=== PATIENT | female | born 1960 ===

== ENCOUNTER 2019-01-02 07:11 | Inpatient (IN) | payer MEDICAID ==
[2019-01-02 07:15] VITALS: BMI 23.7
[2019-01-02] MEDS ORDERED: Sodium Chloride 0.9% 1,000 ML IV STA (07:40)
[2019-01-02 08:07] LABS: BASO # 0.1 K/uL (0.0-0.2); BASO % 1.1 % (0.0-2.0); EOS # 0.1 K/uL (0.0-0.7); EOS % 1.3 % (0.0-4.0); HEMOGLOBIN 11.7 g/dL (11.0-16.0); LYMPH % 44.2 % (20.0-40.0); MEAN CELL VOLUME 84.1 fL (81.0-99.0); MEAN CORPUSCULAR HEMOGLOBIN 28.1 pg (27.0-31.0); MEAN CORPUSCULAR HGB CONC 33.5 g/dL (33.0-37.0); MEAN PLATELET VOLUME 8.3 fL (7.2-11.7); MONO # 0.3 K/uL (0.0-0.8); MONO % 4.1 % (0.0-10.0); NEUT # 3.4 K/uL (1.8-7.0); NEUT % 49.3 % (50.0-75.0); NRBC % 0.6 % (0.0-2.0); RBC 4.17 Mil/uL (3.80-5.20); RED CELL DISTRIBUTION WIDTH 15.9 % (11.5-14.5); WHITE BLOOD COUNT 6.9 K/uL (4.8-10.8)
[2019-01-02] MEDS ORDERED: Sodium Chloride 0.9% 1,000 ML ONE ×2 (08:08→17:00)
[2019-01-02 08:14] LABS: SQUAMOUS EPITHIAL 1 /hpf (0-5); URINE BILIRUBIN NEGATIVE (NEGATIVE); URINE BLOOD NEGATIVE (NEGATIVE); URINE CLARITY Clear (Clear); URINE COLOR Yellow (YELLOW); URINE GLUCOSE (UA) NORMAL (Normal); URINE LEUKOCYTE ESTERASE NEG Leu/uL (Negative); URINE PROTEIN NEGATIVE (NEGATIVE); URINE UROBILINOGEN NORMAL mg/dL (0.2-1.0)
[2019-01-02 08:20] LABS: ALB/GLOB RATIO 1.6 (1.0-2.1); ALBUMIN 4.4 g/dL (3.5-5.0); ALT/SGPT 73 U/L (9-52); AST/SGOT 62 U/L (14-36); BLOOD UREA NITROGEN 10 mg/dL (7-17); CALCIUM 9.6 mg/dl (8.6-10.4); GFR NON-AFRICAN AMERICAN > 60; LIPASE 133 U/L (23-300)
--- NOTE | 2019-01-02 08:20 | C.PDOC ---
History Of Present Illness 58 y/o female presents to the ED complaining of 1 week of RUQ pain radiating to her back. Associated with mild nausea, but no vomiting. She denies any fever, chills, dysuria, frequency, or diarrhea. Time Seen by Provider: 01/02/19 07:20 Chief Complaint (Nursing): Abdominal Pain History Per: Patient History/Exam Limitations: no limitations Onset/Duration Of Symptoms: Days (x 7) Current Symptoms Are (Timing): Still Present Location Of Pain/Discomfort: RUQ Radiation Of Pain To:: Back Quality Of Discomfort: "Pain" Associated Symptoms: Nausea Past Medical History Reviewed: Historical Data, Nursing Documentation, Vital Signs Vital Signs: Last Vital Signs Temp 98.6 F 01/02/19 07:17 Pulse 87 01/02/19 07:17 Resp 16 01/02/19 07:17 BP 115/74 01/02/19 07:17 Pulse Ox 98 01/02/19 07:17 - Medical History PMH: HTN Surgical History: Cholecystectomy - [facility] Procedures RADICAL EXCIS SKIN LES (05/11/14) Family History: States: Unknown Family Hx - Social History Hx Alcohol Use: No Hx Substance Use: No - Immunization History Hx Tetanus Toxoid Vaccination: No Hx Influenza Vaccination: Yes Hx Pneumococcal Vaccination: No Review Of Systems Except As Marked, All Systems Reviewed And Found Negative. Constitutional: Negative for: Fever, Chills Cardiovascular: Negative for: Chest Pain Respiratory: Negative for: Shortness of Breath Gastrointestinal: Positive for: Nausea, Abdominal Pain (RUQ). Negative for: Vomiting, Diarrhea, Hematochezia Genitourinary: Negative for: Dysuria, Frequency, Incontinence Musculoskeletal: Positive for: Back Pain Neurological: Negative for: Weakness, Dizziness Physical Exam - Physical Exam Appears: Non-toxic, No Acute Distress Skin: Normal Color, Warm, Dry Head: Atraumatic, Normacephalic Eye(s): bilateral: Normal Inspection, PERRL, EOMI Oral Mucosa: Moist Neck: Normal ROM Chest: Symmetrical Cardiovascular: Rhythm Regular, No Murmur Respiratory: Normal Breath Sounds, No Accessory Muscle Use Gastrointestinal/Abdominal: Soft, Tenderness (Mild tenderness to RUQ), No Guarding, No Rebound Back: No CVA Tenderness Extremity: Bilateral: Atraumatic, Normal Color And Temperature, Normal ROM Neurological/Psych: Oriented x3, Normal Speech ED Course And Treatment - Laboratory Results Result Diagrams: 01/02/19 08:02 01/02/19 08:02 O2 Sat by Pulse Oximetry: 98 (RA) Pulse Ox Interpretation: Normal - CT Scan/US Abdominal US Other Rad Studies (CT/US): Read By Radiologist, Radiology Report Reviewed CT/US Interpretation: Accession No. : [id number]. Patient Name / ID : WALDEMAR LUCIO / [id number]. Exam Date : 01/02/2019 08:49:18 ( Approved ). Study Comment : Sex / Age : F / 58Y. Creator : Eli Hunter MD. Dictator : Eli Hunter MD. Tipple Mechanic : Dimension Specification Inspector : Eli Hunter MD. Approver2 : Report Date : 01/02/2019 10:20:00. My Comment : . Date of service: 01/02/2019. HISTORY: Pain epigastric and RUQ. COMPARISON: None available. TECHNIQUE: Sonographic evaluation of the right upper quadrant of the abdomen. FINDINGS: LIVER: Measures 15.5 cm in length. Echogenic liver may be seen in setting of hepatic parenchymal disease or fatty infiltration. No focal hepatic mass identified. The main portal vein appears patent with normal directional flow. No intrahepatic bile duct dilatation. GALLBLADDER: Cholecystectomy. COMMON BILE DUCT: Measures 6 mm. PANCREAS: Not well- visualized. RIGHT KIDNEY: Measures approximately 10.9 x 3.9 x 4.3 cm. No o bstructing calculus or hydronephrosis identified. AORTA: Limited visualization appears grossly unremarkable. IVC: Limited visualization appears grossly unremarkable. OTHER FINDINGS: None . IMPRESSION: Echogenic liver may be seen in setting of hepatic parenchymal disease or fatty infiltration. Cholecystectomy. CT Abdomen/Pelvis Other Rad Studies (CT/US): Read By Radiologist, Radiology Report Reviewed CT/US Interpretation: Accession No. : [id number]. Patient Name / ID : WALDEMAR Rausch / [id number]. Exam Date : 01/02/2019 12:47:59 ( Approved ). Study Comment : Sex / Age : F / 58Y. Creator : Alyssa Romeo. Dictator : Eli Hunter MD. Tipple Mechanic : Dimension Specification Inspector : Eli Hunter MD. Approver2 : Report Date : 01/02/2019 13:23:42. My Comment : . PROCEDURE: CT Abdomen and Pelvis with oral and IV contrast. HISTORY: periumbilical and right abdominal pain. COMPARISON: None available. TECHNIQUE: Contiguous axial images of the abdomen and pelvis. Oral and IV contrast was administered. Coronal and Sagittal reformats generated and reviewed. Contrast dose: 100 mL Visipaque 320 IV. Radiation dose: Total e xam DLP = 932.73 mGy-cm. This CT exam was performed using one or more of the following dose reduction techniques: Automated exposure control, adjustment of the mA and/or kV according to patient size, and/or use of iterative reconstruction technique. FINDINGS: LOWER THORAX: No visible consolidation, pleural effusion, or pneumothorax. LIVER: Unremarkable. GALLBLADDER AND BILE DUCTS: Not visualized, either resected or contrast. Dilated common bile duct measures approximately 10 mm. PANCREAS: Unremarkable. SPLEEN: Unremarkable. ADRENALS: Unremarkable. KIDNEYS AND URETERS: The kidneys enhance symmetrically. 4 mm distal left ureteral calculus (series 3, image 145) without significant proximal hydronephrosis or hydroureter. BLADDER: Thick-walled under distended urinary bladder. REPRODUCTIVE: Uterus is present. APPENDIX: The appendix appears within normal limits of caliber. No secondary signs of acute appendicitis. BOWEL: The stomach is nondistended. The bowel loops ap pear within normal limits of caliber without evidence of intestinal obstruction. Diverticulosis without CT evidence of acute diverticulitis. Moderate diffuse constipation. PERITONEUM: No significant free fluid. No definite free air. LYMPH NODES: No bulky lymphadenopathy identified. VASCULATURE: No aortic aneurysm. No significant atherosclerotic calcification or mural plaque present. BONES: No acute osseous abnormality is detected. OTHER FINDINGS: Fat containing containing umbilical hernia. IMPRESSION: Diverticulosis without CT evidence of acute diverticulitis. Moderate diffuse constipation. The gallbladder is not visualized, either resected or contrast. Dilated common bile duct measures approximately 10 mm. Thick-walled under distended urinary bladder recommend correlation with urinalysis. 4 mm distal left ureteral calculus without significant proximal hydronephrosis or hydroureter. Additional findings as above. Progress Note: Blood work and urine sent to the lab. Patient given IV fluids, 15 mg IV Toradol, and 4 mg IV Zofran. Pending Abdominal US. Imaging reviewed, showing echogenic liver. Patient still in pain. Morphine IV ordered. Will o btain CT of the Abdomen/Pelvis with PO&IV contrast. Ct abdomen w/o acute pathology. However patient still in pain. Case was d/w pt's PMD who accepted patient MS for observation for intractable pain. Disposition - Disposition Disposition: HOSPITALIZED Disposition Time: 16:03 Condition: FAIR Forms: Online [employer] (Hebrew) - Clinical Impression Clinical Impression: Intractable abdominal pain - PA / [employer] / Resident Statement MD/DO has reviewed & agrees with the documentation as recorded. - Scribe Statement The provider has reviewed the documentation as recorded by the Scribbarron Rincon All medical record entries made by the Scribe were at my direction and personally dictated by me. I have reviewed the chart and agree that the record accurately reflects my personal performance of the history, physical exam, medical decision making, and the department course for this patient. I have also personally directed, reviewed, and agree with the discharge instructions and disposition. Decision To Admit - Pt Status Changed To: Hospital Disposition Of: Observation - . Bed Request Type: Regular Admitting Physician: Tariq Leon Jr. Patient Diagnosis: Intractable abdominal pain
[2019-01-02] MEDS ORDERED: Iohexol 240 (50 ml) PO STA (10:22)
--- NOTE | 2019-01-02 10:23 | US ---
Date of service: 01/02/2019 HISTORY: Pain epigastric and RUQ COMPARISON: None available TECHNIQUE: Sonographic evaluation of the right upper quadrant of the abdomen. FINDINGS: LIVER: Measures 15.5 cm in length. Echogenic liver may be seen in setting of hepatic parenchymal disease or fatty infiltration. No focal hepatic mass identified. The main portal vein appears patent with normal directional flow. No intrahepatic bile duct dilatation. GALLBLADDER: Cholecystectomy. COMMON BILE DUCT: Measures 6 mm. PANCREAS: Not well-visualized. RIGHT KIDNEY: Measures approximately 10.9 x 3.9 x 4.3 cm. No obstructing calculus or hydronephrosis identified. AORTA: Limited visualization appears grossly unremarkable. IVC: Limited visualization appears grossly unremarkable. OTHER FINDINGS: None . IMPRESSION: Echogenic liver may be seen in setting of hepatic parenchymal disease or fatty infiltration. Cholecystectomy.
[2019-01-02] MEDS ORDERED: Iohexol 240 (50 ml) ONE (11:01)
[2019-01-02] MEDS ORDERED: Iodixanol 320 MG/ML 100 ML BOTTLE IV ONE (12:12)
--- NOTE | 2019-01-02 14:32 | CT ---
PROCEDURE: CT Abdomen and Pelvis with oral and IV contrast. HISTORY: periumbilical and right abdominal pain COMPARISON: None available TECHNIQUE: Contiguous axial images of the abdomen and pelvis. Oral and IV contrast was administered. Coronal and Sagittal reformats generated and reviewed. Contrast dose: 100 mL Visipaque 320 IV Radiation dose: Total exam DLP = 932.73 mGy-cm. This CT exam was performed using one or more of the following dose reduction techniques: Automated exposure control, adjustment of the mA and/or kV according to patient size, and/or use of iterative reconstruction technique. FINDINGS: LOWER THORAX: No visible consolidation, pleural effusion, or pneumothorax. LIVER: Unremarkable. GALLBLADDER AND BILE DUCTS: Not visualized, either resected or contrast. Dilated common bile duct measures approximately 10 mm. PANCREAS: Unremarkable. SPLEEN: Unremarkable. ADRENALS: Unremarkable. KIDNEYS AND URETERS: The kidneys enhance symmetrically. 4 mm distal left ureteral calculus (series 3, image 145) without significant proximal hydronephrosis or hydroureter. BLADDER: Thick-walled under distended urinary bladder. REPRODUCTIVE: Uterus is present. APPENDIX: The appendix appears within normal limits of caliber. No secondary signs of acute appendicitis. BOWEL: The stomach is nondistended. The bowel loops appear within normal limits of caliber without evidence of intestinal obstruction. Diverticulosis without CT evidence of acute diverticulitis. Moderate diffuse constipation. PERITONEUM: No significant free fluid. No definite free air. LYMPH NODES: No bulky lymphadenopathy identified. VASCULATURE: No aortic aneurysm. No significant atherosclerotic calcification or mural plaque present. BONES: No acute osseous abnormality is detected. OTHER FINDINGS: Fat containing containing umbilical hernia. IMPRESSION: Diverticulosis without CT evidence of acute diverticulitis. Moderate diffuse constipation. The gallbladder is not visualized, either resected or contrast. Dilated common bile duct measures approximately 10 mm. Thick-walled under distended urinary bladder recommend correlation with urinalysis. 4 mm distal left ureteral calculus without significant proximal hydronephrosis or hydroureter. Additional findings as above.
[2019-01-02] MEDS ORDERED: Sodium Chloride 0.9% 1,000 ML IV ONE (16:53)
--- NOTE | 2019-01-02 17:23 | CP.PCM.HP ---
History of Present Illness - History of Present Illness History of Present Illness: H&P: 58 year old female with past medical history of DM, HTN, and cholecystectomy presented to hospital for RUQ abdominal pain. Patient states that since her cholecystectomy 20 years ago, RUQ pain has been intermittently present. However since last week RUQ has been constant and worse in intensity. Pain is sharp in nature and radiates to her back. Pain is not associated with nausea/vomiting/fevers/chills/SOB. Patient was admitted to [facility] in 12/23-12/25 for similar symptoms. At that time, pt states CT scan and blood work were u nremarkable and she was treated for UTI. She was d/herb with 5 days of PO ABx. Patient completed course of Abx and her urinary symptoms improved. However, RUQ pain was not relieved. ROS: + RUQ abd pain. Denies N/V/F/C/CP/SOB/dysuria/hematuria/vaginal discharge/ changes in bowel movements PMHx: stated above Sx: Cholecystecomy 20 yrs ago. Colonoscopy 2016 with "pre-cancerous polyps" removed (repeat rec in 2019). EGD in 2017 Social: Denies tobacco, ETOH or drug use Meds: see MAR PMD: Dr. Leon Present on Admission - Present on Admission Any Indicators Present on Admission: No Review of Systems - Constitutional Constitutional: absent: Chills, Fever - EENT Eyes: absent: Blurred Vision, Change in Vision Nose/Mouth/Throat: absent: Nasal Congestion, Nasal Discharge, Sore Throat - Cardiovascular Cardiovascular: absent: Chest Pain, Dyspnea, Palpitations, Pedal Edema - Respiratory Respiratory: absent: Cough, Wheezing, Chest Congestion - Gastrointestinal Gastrointestinal: Abdominal Pain, Nausea. absent: Vomiting - Genitourinary Genitourinary: absent: Dysuria, Urinary Frequency, Urinary Urgency - Musculoskeletal Musculoskeletal: absent: Back Pain, Numbness, Tingling - Integumentary Integumentary: absent: Lesions, Rash - Psychiatric Psychiatric: absent: Anxiety, Depression Past Patient History - Past Medical History & Family History Past Medical History?: Yes - Past Social History Smoking Status: Never Smoked Chewing Tobacco Use: No Cigar Use: No Alcohol: None Drugs: Denies Home Situation {Lives}: Alone - CARDIAC Hx Hypertension: Yes - ENDOCRINE/METABOLIC Hx Endocrine Disorders: Yes Hx Diabetes Mellitus Type 2: Yes - INTEGUMENTARY Hx Dermatological Problems: Yes (mass on back) - PSYCHIATRIC Hx Substance Use: No - SURGICAL HISTORY Hx Cholecystectomy: Yes - ANESTHESIA Hx Anesthesia: Yes Hx Anesthesia Reactions: No Hx Malignant Hyperthermia: No Meds Allergies/Adverse Reactions: Allergies Allergy/AdvReac Type Severity Reaction Status Date / Time No Known Allergies Allergy Verified 01/02/19 07:14 Physical Exam - Constitutional Appears: Non-toxic, No Acute Distress - Head Exam Head Exam: ATRAUMATIC, NORMOCEPHALIC - Eye Exam Eye Exam: EOMI - ENT Exam ENT Exam: Mucous Membranes Moist - Respiratory Exam Respiratory Exam: Clear to Auscultation Bilateral. absent: Rales, Rhonchi, Wheezes - Cardiovascular Exam Cardiovascular Exam: REGULAR RHYTHM, +S1, +S2. absent: Diastolic murmur, Gallop, Rubs, Systolic Murmur - GI/Abdominal Exam GI & Abdominal Exam: Normal Bowel Sounds, Soft. absent: Distended, Firm, Guard ing, Organomegaly, Rebound, Rigid, Tenderness - Extremities Exam Extremities exam: Negative for: pedal edema, tenderness - Neurological Exam Neurological exam: Alert, Oriented x3 - Psychiatric Exam Psychiatric exam: Normal Affect, Normal Mood - Skin Skin Exam: Dry, Intact, Normal Color, Warm Results - Vital Signs Recent Vital Signs: Last Vital Signs Temp 98.2 F 01/02/19 09:30 Pulse 74 01/02/19 16:32 Resp 15 01/02/19 16:32 BP 129/72 01/02/19 16:32 Pulse Ox 96 01/02/19 16:32 - Labs Result Diagrams: 01/02/19 08:02 01/02/19 08:02 Labs: Laboratory Results - last 24 hr 01/02/19 01/02/19 01/02/19 08:02 08:02 08:02 WBC 6.9 RBC 4.17 Hgb 11.7 Hct 35.1 MCV 84.1 MCH 28.1 MCHC 33.5 RDW 15.9 H Plt Count 166 MPV 8.3 Neut % (Auto) 49.3 L Lymph % (Auto) 44.2 H [place] % (Auto) 4.1 Eos % (Auto) 1.3 Baso % (Auto) 1.1 Neut # (Auto) 3.4 Lymph # (Auto) 3.0 [place] # (Auto) 0.3 Eos # (Auto) 0.1 Baso # (Auto) 0.1 Sodium 136 Potassium 4.0 Chloride 97 L Carbon Dioxide 31 H Anion Gap 11 BUN 10 Creatinine 0.5 L Est GFR ( Amer) > 60 Est GFR (Non-Af Amer) > 60 Random Glucose 219 H D Calcium 9.6 Total Bilirubin 0.2 AST 62 H ALT 73 H D Alkaline Phosphatase 112 Total Protein 7.2 Albumin 4.4 Globulin 2.8 Albumin/Globulin Ratio 1.6 Lipase 133 Urine Color Yellow Urine Clarity Clear Urine pH 5.0 Ur Specific [place] 1.016 Urine Protein Negative Urine Glucose (UA) Normal Urine Ketones Negative Urine Blood Negative Urine Nitrate Negative Urine Bilirubin Negative Urine Urobilinogen Normal Ur Leukocyte Esterase Neg Urine WBC (Auto) < 1 Urine RBC (Auto) 1 Ur Squamous Epith Cells 1 Assessment & Plan - Assessment and Plan (Free Text) Assessment: 58 year old female with no significant past medical history is admitted for intractable abd pain. Abd US in ED showed echogenic liver which may be seen in hepatic parenchymal disease or fatty infiltrate; cholecystectomy. Abd CT showed diverticulosis (no diverticulitis); moderate constipation; dilated CBD (about 10 mm); 4 mm distal left ureteral calculus. Intractable abdominal pain - AST/ALT slight elevated at 62/73. Normal lipase (133), t. Bili (0.2) and alk phos (112) - Will check hepatitis panel - Will check GC/Chlamydia - GI, Dr. Mahan consulted - CLD - Morphine 1 mg q6 prn for pain - Zofran q6 prn for nausea - Will hold oral hypoglycemic agent DM - Will hold oral hypoglycemic agents - ISS - Accuchecks [facility] - hypoglycemic protocol - HgbA1c ordered, lipid panel HTN - Continue home med lisinopri/HCTZ 06/28.5 Prophylaxis - Protonix 40 qd - SCDs - lovenox Case discussed with attending, Dr. Leon. All orders and management per Dr. Leon - Date & Time Date: 01/02/19 Time: 17:24
[2019-01-02 18:28] VITALS: RESP 20
[2019-01-02] MEDS: Pantoprazole 40 mg EC Tab PO SCH (18:53)
[2019-01-02] MEDS: (Novolin R) Insulin Human Regular 100 units/ml vial SC SCH (22:35)
[2019-01-03] MEDS ORDERED: Gadodiamide 287 mg/ml 20 ml IV ONE (03:25)
[2019-01-03] MEDS: (Novolin R) Insulin Human Regular 100 units/ml vial SC SCH ×4 (07:46→22:00)
[2019-01-03 08:22] LABS: EOS # 0.1 K/uL (0.0-0.7); EOS % 1.4 % (0.0-4.0); HEMOGLOBIN 10.8 g/dL (11.0-16.0); LYMPH # 2.4 K/uL (1.0-4.3); LYMPH % 62.5 % (20.0-40.0); MEAN CELL VOLUME 84.5 fL (81.0-99.0); MEAN CORPUSCULAR HEMOGLOBIN 28.3 pg (27.0-31.0); MEAN CORPUSCULAR HGB CONC 33.5 g/dL (33.0-37.0); MEAN PLATELET VOLUME 8.5 fL (7.2-11.7); MONO # 0.2 K/uL (0.0-0.8); MONO % 5.8 % (0.0-10.0); NEUT # 1.1 K/uL (1.8-7.0); NEUT % 29.3 % (50.0-75.0); NRBC % 0.6 % (0.0-2.0); RBC 3.81 Mil/uL (3.80-5.20); RED CELL DISTRIBUTION WIDTH 16.2 % (11.5-14.5); WHITE BLOOD COUNT 3.9 K/uL (4.8-10.8)
[2019-01-03 08:40] LABS: ALB/GLOB RATIO 1.4 (1.0-2.1); ALBUMIN 3.7 g/dL (3.5-5.0); ALT/SGPT 597 U/L (9-52); AST/SGOT 592 U/L (14-36); BLOOD UREA NITROGEN 6 mg/dL (7-17); CALCIUM 8.7 mg/dl (8.6-10.4); GFR NON-AFRICAN AMERICAN > 60; HDL CHOLESTEROL 33 mg/dL (30-70)
[2019-01-03 08:48] LABS: LDL CHOLESTEROL 90 mg/dL (0-129)
[2019-01-03 09:08] LABS: HEPATITIS B SURFACE AG Negative (NEGATIVE)
[2019-01-03 09:13] LABS: HEPATITIS A IGM NEGATIVE (NEGATIVE); HEPATITIS B CORE AB NEGATIVE (NEGATIVE)
[2019-01-03] MEDS: Pantoprazole 40 mg EC Tab PO SCH (09:13)
[2019-01-03] MEDS: Enoxaparin 40 mg Syringe SC SCH (09:13)
[2019-01-03 09:25] LABS: HEPATITIS C ANTIBODY NEGATIVE (NEGATIVE)
--- NOTE | 2019-01-03 13:38 | CP.PCM.PN ---
Subjective - Date & Time of Evaluation Date of Evaluation: 01/03/19 Time of Evaluation: 13:38 - Subjective Subjective: HOSPITALIST SERVICE Pt s/e at bedside, reports persistent food intolerance, denies any worsening pains, denies any acute events overnight, denies CP SOB FC NV Objective - Vital Signs/Intake and Output Vital Signs (last 24 hours): Temp Pulse Resp BP Pulse Ox 99.1 F 52 L 20 134/79 98 01/03/19 07:57 01/03/19 07:57 01/03/19 07:57 01/03/19 07:57 01/03/19 07:57 Intake and Output: 01/03/19 01/03/19 06:59 18:59 Intake Total 1300 Balance 1300 - Medications Medications: Current Medications Aspirin (Ecotrin) 81 mg PO DAILY [facility] Last Admin: 01/03/19 09:12 Dose: 81 mg Docusate Sodium (Colace) 100 mg PO TID [facility] Enoxaparin Sodium (Lovenox) 40 mg SC DAILY [facility] Last Admin: 01/03/19 09:13 Dose: 40 mg Hydrochlorothiazide (Microzide) 12.5 mg PO DAILY [facility] Last Admin: 01/03/19 09:12 Dose: 12.5 mg Insulin Human Regular (Novolin R) 0 unit SC [facility]; Protocol Last Admin: 01/03/19 11:20 Dose: Not Given Lisinopril (Zestril) 10 mg PO DAILY [facility] Last Admin: 01/03/19 09:12 Dose: 10 mg Morphine Sulfate (Morphine) 1 mg IVP Q6 PRN PRN Reason: Pain, moderate (4-7) Last Admin: 01/03/19 05:45 Dose: 1 mg Ondansetron HCl (Zofran Inj) 4 mg IVP Q6 PRN PRN Reason: Nausea/Vomiting Pantoprazole Sodium (Protonix Ec Tab) 40 mg PO DAILY [facility] Last Admin: 01/03/19 09:13 Dose: 40 mg Pneumococcal Polyvalent Vaccine (Pneumovax 23 Vaccine) 0.5 ml IM .ONCE ONE Stop: 01/04/19 10:01 - Labs Labs: 01/03/19 08:15 01/03/19 08:15 - Additional Findings Additional findings: - Constitutional Appears: Non-toxic, No Acute Distress - Head Exam Head Exam: ATRAUMATIC, NORMOCEPHALIC - Eye Exam Eye Exam: EOMI - ENT Exam ENT Exam: Mucous Membranes Moist - Respiratory Exam Respiratory Exam: Clear to Auscultation Bilateral. absent: Rales, Rhonchi, Wheezes - Cardiovascular Exam Cardiovascular Exam: REGULAR RHYTHM, +S1, +S2. absent: Diastolic murmur, Gallop, Rubs, Systolic Murmur - GI/Abdominal Exam GI & Abdominal Exam: Normal Bowel Sounds, Soft. absent: Distended, Firm, Guarding, Organomegaly, Rebound, Rigid, Tenderness - Extremities Exam Extremities exam: Negative for: pedal edema, tenderness - Neurological Exam Neurological exam: Alert, Oriented x3 - Psychiatric Exam Psychiatric exam: Normal Affect, Normal Mood - Skin Skin Exam: Dry, Intact, Normal Color, Warm, no jaundice Assessment and Plan - Assessment and Plan (Free Text) Assessment: 58 year old female with no significant past medical history is admitted for intractable abd pain. Abd US in ED showed echogenic liver which may be seen in hepatic parenchymal disease or fatty infiltrate; cholecystectomy. Abd CT showed diverticulosis (no diverticulitis); moderate constipation; dilated CBD (about 10 mm); 4 mm distal left ureteral calculus. Acute Transaminitis - LFTs over 500 today - Possibly secondary to toradol vs Biliary stone/sludge - CT Abd: 10mm CBD - Abd U/S: neg - f/u MRCP Intractable abdominal pain - Normal lipase (133), t. Bili (0.2) and alk phos (112) - neg hepatitis panel - Will check GC/Chlamydia - GI, Dr. Mahan: f/u recs - CLD - Morphine 1 mg q6 prn for pain - Zofran q6 prn for nausea - Colace 100 TID - Will hold oral hypoglycemic agent DM - Will hold oral hypoglycemic agents - ISS - Accuchecks [facility] - hypoglycemic protocol - HgbA1c ordered, lipid panel HTN - Continue home med lisinopri/HCTZ 10/12.5 Prophylaxis - Protonix 40 qd - SCDs - lovenox DISPO: f/u MRCP CK PGY1 Case discussed with attending, Dr. Leon.
--- NOTE | 2019-01-03 16:24 | MRI ---
MRI abdomen without/with IV contrast MRCP Indication: LFT spike, 10mm CBD on CT Technique: Multiplanar, multi sequence magnetic resonance images of the abdomen were obtained without and with the administration of intravenous gadolinium using a multi phase abdomen protocol. Rotating maximum intensity projection images of the biliary system were generated. A total of 1020 images submitted for review Comparison: CT abdomen and pelvis with oral and IV contrast performed 01/02/19, limited abdominal ultrasound performed 01/02/19 Findings: Mild hepatic steatosis. The common bile duct measures approximately 11 mm in the setting of cholecystectomy. Distal most CBD is not well visualized and distal filling defect or stricture cannot be excluded. No focal filling defect identified within the proximal visualized duct. There is no intrahepatic biliary ductal dilatation. The pancreatic duct appears within normal limits of caliber. No filling defects are seen in the common bile duct or pancreatic duct. The limited visualized spleen, pancreas, and adrenal glands appear unremarkable. The kidneys enhance symmetrically. No obstructing calculus or hydronephrosis identified. No no enlarged abdominal lymph nodes are appreciated. Limited views of the inferior thorax appear unremarkable. Impression: The common bile duct measures approximately 11 mm in the setting of cholecystectomy. Distal most CBD is not well visualized and distal filling defect or stricture cannot be excluded. No focal filling defect identified within the proximal visualized duct. Mild hepatic steatosis.
[2019-01-04] MEDS: (Novolin R) Insulin Human Regular 100 units/ml vial SC SCH ×4 (08:25→21:36)
[2019-01-04] MEDS: Pantoprazole 40 mg EC Tab PO SCH (09:56)
[2019-01-04] MEDS: Enoxaparin 40 mg Syringe SC SCH (09:56)
[2019-01-04 09:59] LABS: EOS # 0.1 K/uL (0.0-0.7); EOS % 1.8 % (0.0-4.0); LYMPH # 2.6 K/uL (1.0-4.3); LYMPH % 53.4 % (20.0-40.0); MEAN CELL VOLUME 85.4 fL (81.0-99.0); MEAN CORPUSCULAR HEMOGLOBIN 27.9 pg (27.0-31.0); MEAN CORPUSCULAR HGB CONC 32.7 g/dL (33.0-37.0); MEAN PLATELET VOLUME 9.1 fL (7.2-11.7); MONO # 0.2 K/uL (0.0-0.8); MONO % 4.1 % (0.0-10.0); NEUT % 39.7 % (50.0-75.0); NRBC % 1.3 % (0.0-2.0); RBC 4.3 Mil/uL (3.80-5.20); RED CELL DISTRIBUTION WIDTH 15.9 % (11.5-14.5); WHITE BLOOD COUNT 4.9 K/uL (4.8-10.8)
[2019-01-04] MEDS ORDERED: Pneumococcal 23-Valent Vaccine IM ONE (10:00)
[2019-01-04 10:05] LABS: ALB/GLOB RATIO 1.4 (1.0-2.1); ALBUMIN 3.8 g/dL (3.5-5.0); ALT/SGPT 467 U/L (9-52); AST/SGOT 199 U/L (14-36); BLOOD UREA NITROGEN 7 mg/dL (7-17); CALCIUM 9.8 mg/dl (8.6-10.4); GFR NON-AFRICAN AMERICAN > 60
--- NOTE | 2019-01-04 11:14 | CP.PCM.CON ---
History of Present Illness - History of Present Illness History of Present Illness: Surgery: Dr. Herman Reason for consult: elevated Liver enzymes HPI: Patient is a 58 y/o female who presents for evaluation of RUQ abdominal pain. She reports the pain is better that when she was admitted however not gone. She denies n/v/f/c. She reports constipation. Denies blood stools. She was evaluated at [facility] 2 weeks ago for similar symptoms was found to have UTI and treated with PO abx. She states the pain persisted despite treatment. Of note, patient is s/p cholecystectomy, open about 20 years ago. PMH: DM, HTN, UTI PSH: open shyanne, colonoscopy/EGD 2016 Social: denies toxic habits Review of Systems - Constitutional Constitutional: absent: Anorexia, Chills, Fever - EENT Eyes: absent: Blind Spots, Blurred Vision Nose/Mouth/Throat: absent: Nasal Trauma, Nose Pain - Cardiovascular Cardiovascular: absent: Chest Pain, Dyspnea - Respiratory Respiratory: absent: Cough, Wheezing - Gastrointestinal Gastrointestinal: Abdominal Pain, Constipation - Genitourinary Genitourinary: absent: Hematuria, Pyuria - Musculoskeletal Musculoskeletal: absent: Joint Swelling, Muscle Weakness - Integumentary Integumentary: absent: Sores, Striae - Neurological Neurological: absent: Tingling, Weakness - Psychiatric Psychiatric: absent: Anxiety, Depression - Endocrine Endocrine: absent: Polydipsia, Polyphagia - Hematologic/Lymphatic Hematologic: absent: Easy Bleeding, Easy Bruising Past Patient History - Past Medical History & Family History Past Medical History?: Yes - Past Social History Smoking Status: Never Smoked Chewing Tobacco Use: No Cigar Use: No Alcohol: None Drugs: Denies Home Situation {Lives}: Alone - CARDIAC Hx Hypertension: Yes - ENDOCRINE/METABOLIC Hx Endocrine Disorders: Yes Hx Diabetes Mellitus Type 2: Yes - INTEGUMENTARY Hx Dermatological Problems: Yes (mass on back) - PSYCHIATRIC Hx Substance Use: No - SURGICAL HISTORY Hx Cholecystectomy: Yes - ANESTHESIA Hx Anesthesia: Yes Hx Anesthesia Reactions: No Hx Malignant Hyperthermia: No Meds Allergies/Adverse Reactions: Allergies Allergy/AdvReac Type Severity Reaction Status Date / Time No Known Allergies Allergy Verified 01/02/19 07:14 - Medications Medications: Current Medications Aspirin (Ecotrin) 81 mg PO DAILY [facility] Last Admin: 01/04/19 09:56 Dose: 81 mg Docusate Sodium (Colace) 100 mg PO TID [facility] Last Admin: 01/04/19 09:56 Dose: 100 mg Enoxaparin Sodium (Lovenox) 40 mg SC DAILY [facility] Last Admin: 01/04/19 09:56 Dose: 40 mg Hydrochlorothiazide (Microzide) 12.5 mg PO DAILY [facility] Last Admin: 01/04/19 09:56 Dose: 12.5 mg Insulin Human Regular (Novolin R) 0 unit SC [facility]; Protocol Last Admin: 01/04/19 08:25 Dose: 1 unit Lisinopril (Zestril) 10 mg PO DAILY [facility] Last Admin: 01/04/19 09:56 Dose: 10 mg Morphine Sulfate (Morphine) 1 mg IVP Q6 PRN PRN Reason: Pain, moderate (4-7) Last Admin: 01/04/19 08:25 Dose: 1 mg Ondansetron HCl (Zofran Inj) 4 mg IVP Q6 PRN PRN Reason: Nausea/Vomiting Pantoprazole Sodium (Protonix Ec Tab) 40 mg PO DAILY [facility] Last Admin: 01/04/19 09:56 Dose: 40 mg Physical Exam - Constitutional Appears: Non-toxic, No Acute Distress - Head Exam Head Exam: ATRAUMATIC, NORMOCEPHALIC - Eye Exam Eye Exam: EOMI, Normal appearance - ENT Exam ENT Exam: Mucous Membranes Moist - Respiratory Exam Respiratory Exam: NORMAL BREATHING PATTERN. absent: Respiratory Distress - Cardiovascular Exam Cardiovascular Exam: REGULAR RHYTHM. absent: Tachycardia - GI/Abdominal Exam GI & Abdominal Exam: Soft. absent: Distended, Guarding, Rebound, Rigid, Ten derness Additional comments: negative fisher's - Extremities Exam Extremities exam: Positive for: normal inspection. Negative for: calf tenderness - Neurological Exam Neurological exam: Alert, Oriented x3 - Psychiatric Exam Psychiatric exam: Normal Affect, Normal Mood - Skin Skin Exam: Dry, Normal Color, Warm Results - Vital Signs Recent Vital Signs: Last Vital Signs Temp 98.6 F 01/04/19 08:54 Pulse 65 01/04/19 08:54 Resp 20 01/04/19 08:54 BP 152/83 H 01/04/19 08:54 Pulse Ox 95 01/04/19 08:54 - Labs Result Diagrams: 01/04/19 09:51 01/04/19 09:51 Labs: Laboratory Results - last 24 hr 01/03/19 01/03/19 01/03/19 11:15 16:11 20:55 WBC RBC Hgb Hct MCV MCH MCHC RDW Plt Count MPV Neut % (Auto) Lymph % (Auto) Braxton % (Auto) Eos % (Auto) Baso % (Auto) Neut # (Auto) Lymph # (Auto) Braxton # (Auto) Eos # (Auto) Baso # (Auto) Sodium Potassium Chloride Carbon Dioxide Anion Gap BUN Creatinine Est GFR ( Amer) Est GFR (Non-Af Amer) POC Glucose (mg/dL) 145 H 115 H 150 H Random Glucose Calcium Phosphorus Magnesium Total Bilirubin AST ALT Alkaline Phosphatase Total Protein Albumin Globulin Albumin/Globulin Ratio HIV 1&2 Antibody Screen 01/04/19 01/04/19 01/04/19 06:56 07:33 09:51 WBC 4.9 RBC 4.30 Hgb 12.0 Hct 36.7 MCV 85.4 MCH 27.9 MCHC 32.7 L RDW 15.9 H Plt Count 156 MPV 9.1 Neut % (Auto) 39.7 L Lymph % (Auto) 53.4 H Braxton % (Auto) 4.1 Eos % (Auto) 1.8 Baso % (Auto) 1.0 Neut # (Auto) 2.0 Lymph # (Auto) 2.6 Braxton # (Auto) 0.2 Eos # (Auto) 0.1 Baso # (Auto) 0.0 Sodium Potassium Chloride Carbon Dioxide Anion Gap BUN Creatinine Est GFR ( Amer) Est GFR (Non-Af Amer) POC Glucose (mg/dL) 171 H Random Glucose Calcium Phosphorus Magnesium Total Bilirubin AST ALT Alkaline Phosphatase Total Protein Albumin Globulin Albumin/Globulin Ratio HIV 1&2 Antibody Screen Negative 01/04/19 09:51 WBC RBC Hgb Hct MCV MCH MCHC RDW Plt Count MPV Neut % (Auto) Lymph % (Auto) Braxton % (Auto) Eos % (Auto) Baso % (Auto) Neut # (Auto) Lymph # (Auto) Braxton # (Auto) Eos # (Auto) Baso # (Auto) Sodium 138 Potassium 4.3 Chloride 100 Carbon Dioxide 32 H Anion Gap 11 BUN 7 Creatinine 0.6 L Est GFR ( Amer) > 60 Est GFR (Non-Af Amer) > 60 POC Glucose (mg/dL) Random Glucose 165 H Calcium 9.8 Phosphorus 4.0 Magnesium 1.7 Total Bilirubin 1.1 AST 199 H D ALT 467 H D Alkaline Phosphatase 207 H Total Protein 6.4 Albumin 3.8 Globulin 2.6 Albumin/Globulin Ratio 1.4 HIV 1&2 Antibody Screen Assessment & Plan - Assessment and Plan (Free Text) Assessment: 58 y/o female w/ RUQ pain, improved and elevated liver enzymes - improving Plan: -liver enzymes possibly related to medication hepatotoxicity, abx for UTI vs pain meds -avoid hepatotoxic medications -bowel regimen for constipation -dilated CBD most likely benign finding related to post cholecystectomy dilation - no evidence of stone, mass causing obstruction on MRCP or US -no surgical intervention at this time, rec GI f/u -further recs per Dr. Virgil Marie pGY4
[2019-01-04] MEDS: POLYETHYLENE GLYCOL 3350 17 GM/Dose PACKET PO SCH ×2 (12:02→18:03)
[2019-01-04] MEDS ORDERED: Magnesium Citrate Oral SOL (300 ml) PO ONE (16:00)
--- NOTE | 2019-01-04 17:31 | CP.PCM.PN ---
Subjective - Date & Time of Evaluation Date of Evaluation: 01/04/19 Time of Evaluation: 17:26 - Subjective Subjective: HOSPITALIST SERVICE Pt s/e at bedside, complains of persistent abdominal pain, patient is still constipated. malou DONATO SOB FC [place] Objective - Vital Signs/Intake and Output Vital Signs (last 24 hours): Temp Pulse Resp BP Pulse Ox 99.5 F 90 20 149/94 H 95 01/04/19 15:30 01/04/19 15:30 01/04/19 15:30 01/04/19 15:30 01/04/19 16:58 Intake and Output: 01/04/19 01/04/19 06:59 18:59 Intake Total 780 480 Balance 780 480 - Medications Medications: Current Medications Aspirin (Ecotrin) 81 mg PO DAILY [facility] Last Admin: 01/04/19 09:56 Dose: 81 mg Docusate Sodium (Colace) 100 mg PO TID [facility] Last Admin: 01/04/19 14:36 Dose: 100 mg Enoxaparin Sodium (Lovenox) 40 mg SC DAILY [facility] Last Admin: 01/04/19 09:56 Dose: 40 mg Hydrochlorothiazide (Microzide) 12.5 mg PO DAILY [facility] Last Admin: 01/04/19 09:56 Dose: 12.5 mg Insulin Human Regular (Novolin R) 0 unit SC [facility]; Protocol Last Admin: 01/04/19 12:00 Dose: Not Given Lisinopril (Zestril) 10 mg PO DAILY [facility] Last Admin: 01/04/19 09:56 Dose: 10 mg Morphine Sulfate (Morphine) 1 mg IVP Q6 PRN PRN Reason: Pain, moderate (4-7) Last Admin: 01/04/19 08:25 Dose: 1 mg Ondansetron HCl (Zofran Inj) 4 mg IVP Q6 PRN PRN Reason: Nausea/Vomiting Pantoprazole Sodium (Protonix Ec Tab) 40 mg PO DAILY [facility] Last Admin: 01/04/19 09:56 Dose: 40 mg Polyethylene Glycol (Miralax) 17 gm PO BID [facility] Last Admin: 01/04/19 12:02 Dose: 17 gm - Labs Labs: 01/04/19 09:51 01/04/19 09:51 - Additional Findings Additional findings: - Constitutional Appears: Non-toxic, No Acute Distress - Head Exam Head Exam: ATRAUMATIC, NORMOCEPHALIC - Eye Exam Eye Exam: EOMI - ENT Exam ENT Exam: Mucous Membranes Moist - Respiratory Exam Respiratory Exam: Clear to Auscultation Bilateral. absent: Rales, Rhonchi, Wheezes - Cardiovascular Exam Cardiovascular Exam: REGULAR RHYTHM, +S1, +S2. absent: Diastolic murmur, Gallop, Rubs, Systolic Murmur - GI/Abdominal Exam GI & Abdominal Exam: Normal Bowel Sounds, Soft. absent: Distended, Firm, Guarding, Organomegaly, Rebound, Rigid, Tenderness - Extremities Exam Extremities exam: Negative for: pedal edema, tenderness - Neurological Exam Neurological exam: Alert, Oriented x3 - Psychiatric Exam Psychiatric exam: Normal Affect, Normal Mood - Skin Skin Exam: Dry, Intact, Normal Color, Warm, no jaundice Assessment and Plan - Assessment and Plan (Free Text) Plan: 58 year old female with no significant past medical history is admitted for intractable abd pain. Abd US in ED showed echogenic liver which may be seen in hepatic parenchymal disease or fatty infiltrate; cholecystectomy. Abd CT showed diverticulosis (no diverticulitis); moderate constipation; dilated CBD (about 10 mm); 4 mm distal left ureteral calculus. Acute Transaminitis - LFTs trending down today, monitor - Possibly secondary to toradol - CT Abd: 10mm CBD - Abd U/S: neg - MRCP: 11cm jeannette shaver benign, no stone, s/p cholecystectomy - Dr Herman Consulted dilated CBD most likely benign finding related to post cholecystectomy dilation - no evidence of stone, mass causing obstruction on MRCP or US no surgical intervention at this time, rec GI f/u Intractable abdominal pain - Normal lipase (133), t. Bili (0.2) and alk phos (112) - neg hepatitis panel - Will check GC/Chlamydia - GI, Dr. Mahan: f/u recs - CLD - Morphine 1 mg q6 prn for pain - Zofran q6 prn for nausea - Colace 100 TID - Will hold oral hypoglycemic agent DM - Will hold oral hypoglycemic agents - ISS - Accuchecks ACHS - hypoglycemic protocol - HgbA1c ordered, lipid panel HTN - Continue home med lisinopri/HCTZ 10/12.5 Prophylaxis - Protonix 40 qd - SCDs - lovenox DISPO: d/c tmrw if LFTs come down [facility] PGY1 Case discussed with attending, Dr. Leon.
[2019-01-04] MEDS ORDERED: Bisacodyl 5mg EC Tab PO ONE (18:00)
[2019-01-05] MEDS: (Novolin R) Insulin Human Regular 100 units/ml vial SC SCH ×4 (07:24→21:23)
[2019-01-05 08:13] LABS: BASO % 0.5 % (0.0-2.0); EOS # 0.1 K/uL (0.0-0.7); EOS % 0.8 % (0.0-4.0); HEMOGLOBIN 12.9 g/dL (11.0-16.0); LYMPH # 3.5 K/uL (1.0-4.3); LYMPH % 53.6 % (20.0-40.0); MEAN CELL VOLUME 84.3 fL (81.0-99.0); MEAN CORPUSCULAR HGB CONC 33.2 g/dL (33.0-37.0); MEAN PLATELET VOLUME 8.7 fL (7.2-11.7); MONO # 0.2 K/uL (0.0-0.8); MONO % 3.3 % (0.0-10.0); NEUT # 2.7 K/uL (1.8-7.0); NEUT % 41.8 % (50.0-75.0); RBC 4.61 Mil/uL (3.80-5.20); RED CELL DISTRIBUTION WIDTH 15.6 % (11.5-14.5); WHITE BLOOD COUNT 6.6 K/uL (4.8-10.8)
[2019-01-05 08:27] LABS: ALB/GLOB RATIO 1.3 (1.0-2.1); ALBUMIN 4.3 g/dL (3.5-5.0); ALT/SGPT 329 U/L (9-52); AST/SGOT 91 U/L (14-36); BLOOD UREA NITROGEN 7 mg/dL (7-17); CALCIUM 9.6 mg/dl (8.6-10.4); GFR NON-AFRICAN AMERICAN > 60
[2019-01-05] MEDS: Enoxaparin 40 mg Syringe SC SCH (09:27)
[2019-01-05] MEDS: POLYETHYLENE GLYCOL 3350 17 GM/Dose PACKET PO SCH ×2 (09:27→17:38)
[2019-01-05] MEDS: Pantoprazole 40 mg EC Tab PO SCH (09:28)
--- NOTE | 2019-01-05 10:32 | CP.PCM.PN ---
Subjective - Date & Time of Evaluation Date of Evaluation: 01/05/19 Time of Evaluation: 10:28 - Subjective Subjective: DR FITCH SERVICE- IM Pt s/e at bedside, complains of persistent abdominal pain even though constipation resolved. now complains of "kidney" pain. denies CP SOB FC NV, denies hematuria or blood in stool Objective - Vital Signs/Intake and Output Vital Signs (last 24 hours): Temp Pulse Resp BP Pulse Ox 99.6 F 100 H 20 100/71 96 01/05/19 07:00 01/05/19 07:00 01/05/19 07:00 01/05/19 07:00 01/05/19 07:00 Intake and Output: 01/05/19 01/05/19 06:59 18:59 Intake Total 600 Balance 600 - Medications Medications: Current Medications Aspirin (Ecotrin) 81 mg PO DAILY [facility] Last Admin: 01/05/19 09:28 Dose: 81 mg Docusate Sodium (Colace) 100 mg PO TID [facility] Last Admin: 01/05/19 09:28 Dose: 100 mg Enoxaparin Sodium (Lovenox) 40 mg SC DAILY [facility] Last Admin: 01/05/19 09:27 Dose: 40 mg Hydrochlorothiazide (Microzide) 12.5 mg PO DAILY [facility] Last Admin: 01/05/19 09:28 Dose: 12.5 mg Insulin Human Regular (Novolin R) 0 unit SC [facility]; Protocol Last Admin: 01/05/19 07:24 Dose: Not Given Lisinopril (Zestril) 10 mg PO DAILY [facility] Last Admin: 01/05/19 09:28 Dose: 10 mg Morphine Sulfate (Morphine) 1 mg IVP Q6 PRN PRN Reason: Pain, moderate (4-7) Last Admin: 01/05/19 03:10 Dose: 1 mg Ondansetron HCl (Zofran Inj) 4 mg IVP Q6 PRN PRN Reason: Nausea/Vomiting Pantoprazole Sodium (Protonix Ec Tab) 40 mg PO DAILY [facility] Last Admin: 01/05/19 09:28 Dose: 40 mg Polyethylene Glycol (Miralax) 17 gm PO BID [facility] Last Admin: 01/05/19 09:27 Dose: Not Given Tramadol HCl (Ultram) 50 mg PO TID PRN PRN Reason: Pain, severe (8-10) Last Admin: 01/05/19 09:40 Dose: 50 mg - Labs Labs: 01/05/19 07:50 01/05/19 07:50 - Additional Findings Additional findings: - Constitutional Appears: Non-toxic, No Acute Distress - Head Exam Head Exam: ATRAUMATIC, NORMOCEPHALIC - Eye Exam Eye Exam: EOMI - ENT Exam ENT Exam: Mucous Membranes Moist - Respiratory Exam Respiratory Exam: Clear to Auscultation Bilateral. absent: Rales, Rhonchi, Wheezes - Cardiovascular Exam Cardiovascular Exam: REGULAR RHYTHM, +S1, +S2. absent: Diastolic murmur, Gallop, Rubs, Systolic Murmur - GI/Abdominal Exam GI & Abdominal Exam: RUQ tenderness, neg fisher's, post CVA tenderness bilaterally. Normal Bowel Sounds, Soft. absent: Distended, Firm, Guarding, Organomegaly, Rebound, Rigid, - Extremities Exam Extremities exam: Negative for: pedal edema, tenderness - Neurological Exam Neurological exam: Alert, Oriented x3 - Psychiatric Exam Psychiatric exam: Normal Affect, Normal Mood - Skin Skin Exam: Dry, Intact, Normal Color, Warm, no jaundice Assessment and Plan - Assessment and Plan (Free Text) Assessment: 58 year old female with no significant past medical history is admitted for intractable abd pain. Abd US in ED showed echogenic liver which may be seen in hepatic parenchymal disease or fatty infiltrate; cholecystectomy. Abd CT showed diverticulosis (no diverticulitis); moderate constipation; dilated CBD (about 10 mm); 4 mm distal left ureteral calculus. Acute Transaminitis - LFTs trending down today, monitor - Possibly secondary to toradol - AlkPhos uptrending - CT Abd: 10mm CBD - Abd U/S: neg - MRCP: 11cm jeannette shaver benign, no stone, s/p cholecystectomy - Dr Virgil King Consulted dilated CBD most likely benign finding related to post cholecystectomy dilation - no evidence of stone, mass causing obstruction on MRCP or US no surgical intervention at this time, rec GI f/u - Dr Jesu PALOMARES, [facility] Consulted f/u recs Intractable abdominal pain - Normal lipase (133), t. Bili (0.2) and alk phos (112) - neg hepatitis panel - Will check GC/Chlamydia - GI, Dr. Mahan: f/u recs - CLD - Morphine 1 mg q6 prn DC'd - Tramadol 50 TID - Zofran q6 prn for nausea - Colace 100 TID - Will hold oral hypoglycemic agent DM - Will hold oral hypoglycemic agents - ISS - Accuchecks ACHS - hypoglycemic protocol - HgbA1c 9.8 HTN - Continue home med lisinopri/HCTZ 06/28.5 Prophylaxis - Protonix 40 qd - SCDs - lovenox DISPO: f/u Dr Nails recs, d/c tmrw if LFTs come down [facility] PGY1 Case discussed with attending, Dr. Fitch.
--- NOTE | 2019-01-05 10:50 | CP.PCM.CON ---
<Indira Dunlap - Last Filed: 01/05/19 11:52> History of Present Illness - History of Present Illness History of Present Illness: Gastroenterology Fellow/PGY6 Consult Note 58 year old female with PMH of cholecystectomy 20 years ago, HTN, and Diabetes presenting with persistent right abdominal pain wrapping around flank to back. Similar presentation and workup on recent discharge from [facility] [place] 12/23-12/25 with treatment for UTI with likely Keflex 500mg BID for five days noted on medical record review and patient unable to confirm name of antibiotic. She notes she has never taken this antibiotic before. Notes pain has never resolved since 12/23/18 and has been constant without association to oral intake. Patient admits to prior history of intermittent abdominal pain that occurred every few months for the last twenty years worsened with any solid food intake. Denies NSAID use, alcohol use, OTC herbs/supplements, or acid suppressive medication use. Notes to have constipation and stool burden R>L on CT A/P review with large stool after laxative two days ago. Denies nausea, vomiting, fever, chills, sweats, abdominal distension, confusion, yellowing of skin/eyes, or unintentional weight loss. Prior EGD/colonoscopy 2017 endorsed to have gastritis and polyps with recommendation for five year surveillance. Follows with GI- Dr. Pappas. Family History- denies stomach cancer, colon cancer, liver disease Social History- denies tobacco, alcohol, or illicit drug use Surgical History- cholecystectomy 20 years ago, back cyst removal 04/2014 Review of Systems - Review of Systems Review of Systems: 12-point review of systems negative except for as above Past Patient History - Past Medical History & Family History Past Medical History?: Yes - Past Social History Smoking Status: Never Smoked Chewing Tobacco Use: No Cigar Use: No Alcohol: None Drugs: Denies Home Situation {Lives}: Alone - CARDIAC Hx Hypertension: Yes - ENDOCRINE/METABOLIC Hx Endocrine Disorders: Yes Hx Diabetes Mellitus Type 2: Yes - INTEGUMENTARY Hx Dermatological Problems: Yes (mass on back) - PSYCHIATRIC Hx Substance Use: No - SURGICAL HISTORY Hx Cholecystectomy: Yes - ANESTHESIA Hx Anesthesia: Yes Hx Anesthesia Reactions: No Hx Malignant Hyperthermia: No Meds Allergies/Adverse Reactions: Allergies Allergy/AdvReac Type Severity Reaction Status Date / Time No Known Allergies Allergy Verified 01/02/19 07:14 - Medications Medications: Current Medications Aspirin (Ecotrin) 81 mg PO DAILY [facility] Last Admin: 01/05/19 09:28 Dose: 81 mg Docusate Sodium (Colace) 100 mg PO TID [facility] Last Admin: 01/05/19 09:28 Dose: 100 mg Enoxaparin Sodium (Lovenox) 40 mg SC DAILY [facility] Last Admin: 01/05/19 09:27 Dose: 40 mg Hydrochlorothiazide (Microzide) 12.5 mg PO DAILY [facility] Last Admin: 01/05/19 09:28 Dose: 12.5 mg Insulin Human Regular (Novolin R) 0 unit SC [facility]; Protocol Last Admin: 01/05/19 07:24 Dose: Not Given Lisinopril (Zestril) 10 mg PO DAILY [facility] Last Admin: 01/05/19 09:28 Dose: 10 mg Morphine Sulfate (Morphine) 1 mg IVP Q6 PRN PRN Reason: Pain, moderate (4-7) Last Admin: 01/05/19 03:10 Dose: 1 mg Ondansetron HCl (Zofran Inj) 4 mg IVP Q6 PRN PRN Reason: Nausea/Vomiting Pantoprazole Sodium (Protonix Ec Tab) 40 mg PO DAILY [facility] Last Admin: 01/05/19 09:28 Dose: 40 mg Polyethylene Glycol (Miralax) 17 gm PO BID [facility] Last Admin: 01/05/19 09:27 Dose: Not Given Tramadol HCl (Ultram) 50 mg PO TID PRN PRN Reason: Pain, severe (8-10) Last Admin: 01/05/19 09:40 Dose: 50 mg Physical Exam - Constitutional Appears: Non-toxic, No Acute Distress - Head Exam Head Exam: ATRAUMATIC, NORMOCEPHALIC - Eye Exam Eye Exam: EOMI, PERRL. absent: Scleral icterus Pupil Exam: PERRL. absent: Miosis, Mydriatic - ENT Exam ENT Exam: Mucous Membranes Moist, Normal Oropharynx - Neck Exam Neck exam: Positive for: Full Rom, Normal Inspection - Respiratory Exam Respiratory Exam: Clear to Auscultation Bilateral. absent: Rales, Rhonchi, Wheezes - Cardiovascular Exam Cardiovascular Exam: RRR, +S1, +S2. absent: Gallop, Rubs - GI/Abdominal Exam GI & Abdominal Exam: Normal Bowel Sounds, Soft. absent: Distended, Firm, Guarding, Organomegaly, Rebound, Rigid, Tenderness - Extremities Exam Extremities exam: Positive for: normal inspection - Neurological Exam Neurological exam: Alert - Psychiatric Exam Psychiatric exam: Normal Affect, Normal Mood - Skin Skin Exam: Dry, Intact, Normal Color, Warm Results - Vital Signs Recent Vital Signs: Last Vital Signs Temp 99.6 F 01/05/19 07:00 Pulse 100 H 01/05/19 07:00 Resp 20 01/05/19 07:00 BP 100/71 01/05/19 07:00 Pulse Ox 96 01/05/19 07:00 - Labs Result Diagrams: 01/05/19 07:50 01/05/19 07:50 Labs: Laboratory Results - last 24 hr 01/02/19 01/04/19 01/04/19 08:07 07:33 11:27 WBC RBC Hgb Hct MCV MCH MCHC RDW Plt Count MPV Neut % (Auto) Lymph % (Auto) Emanuel % (Auto) Eos % (Auto) Baso % (Auto) Neut # (Auto) Lymph # (Auto) Emanuel # (Auto) Eos # (Auto) Baso # (Auto) Sodium Potassium Chloride Carbon Dioxide Anion Gap BUN Creatinine Est GFR ( Amer) Est GFR (Non-Af Amer) POC Glucose (mg/dL) 171 H 147 H Random Glucose Calcium Total Bilirubin AST ALT Alkaline Phosphatase Troponin I Total Protein Albumin Globulin Albumin/Globulin Ratio C.trachomatis RNA (TMA) Not detected N.gonorrhoeae RNA (TMA) Not detected 01/04/19 01/04/19 01/05/19 16:25 21:26 02:11 WBC RBC Hgb Hct MCV MCH MCHC RDW Plt Count MPV Neut % (Auto) Lymph % (Auto) Emanuel % (Auto) Eos % (Auto) Baso % (Auto) Neut # (Auto) Lymph # (Auto) Emanuel # (Auto) Eos # (Auto) Baso # (Auto) Sodium Potassium Chloride Carbon Dioxide Anion Gap BUN Creatinine Est GFR ( Amer) Est GFR (Non-Af Amer) POC Glucose (mg/dL) 194 H 215 H 173 H Random Glucose Calcium Total Bilirubin AST ALT Alkaline Phosphatase Troponin I Total Protein Albumin Globulin Albumin/Globulin Ratio C.trachomatis RNA (TMA) N.gonorrhoeae RNA (TMA) 01/05/19 01/05/19 01/05/19 07:08 07:50 07:50 WBC 6.6 RBC 4.61 Hgb 12.9 Hct 38.9 MCV 84.3 MCH 28.0 MCHC 33.2 RDW 15.6 H Plt Count 171 MPV 8.7 Neut % (Auto) 41.8 L Lymph % (Auto) 53.6 H Emanuel % (Auto) 3.3 Eos % (Auto) 0.8 Baso % (Auto) 0.5 Neut # (Auto) 2.7 Lymph # (Auto) 3.5 Emanuel # (Auto) 0.2 Eos # (Auto) 0.1 Baso # (Auto) 0.0 Sodium 136 Potassium 4.0 Chloride 96 L Carbon Dioxide 32 H Anion Gap 12 BUN 7 Creatinine 0.7 Est GFR ( Amer) > 60 Est GFR (Non-Af Amer) > 60 POC Glucose (mg/dL) 196 H Random Glucose 197 H Calcium 9.6 Total Bilirubin 0.5 AST 91 H D ALT 329 H D Alkaline Phosphatase 241 H Troponin I < 0.0120 Total Protein 7.5 Albumin 4.3 Globulin 3.2 Albumin/Globulin Ratio 1.3 C.trachomatis RNA (TMA) N.gonorrhoeae RNA (TMA) Assessment & Plan - Assessment and Plan (Free Text) Assessment: 58 year old female with PMH of cholecystectomy 20 years ago, HTN, and Diabetes presenting with persistent right abdominal pain wrapping around flank to back since 12/23 with discharge from [facility] [place] 12/23-12/25 s/p treatment for UTI with likely Keflex 500mg BID for five days (finished 12/30). Advanced endoscopist consultation for LFTs. Prior EGD/colonoscopy 2017 endorsed to have gastritis and polyps with recommendation for five year surveillance. Follows with GI- Dr. Pappas. Plan: -LFTs likely 2/2 DILI with recent Keflex completed 12/30 -likely peak of liver injury with LFT trend improving last 48 hours, monitor -Hepatitis panel negative, ordered autoimmune serologies -reviewed U/S, CT, and MRCP - no biliary pathology noted -contacted [facility] [place] - spoke to ER physician -CBD 9mm on CT A/P 12/23 -CBD dilatation in setting of cholecystectomy -Abdominal pain Differential- SOD, gastroparesis, constipation, dyspepsia -recommend further conservative measures as SOD is diagnosis of exclusion -possible gastroparesis- stopped zofran, started Reglan 10mg IV ACHS -dyspepsia- started Maalox BID, continue PPI ACB -low suspicion pancreatitis-lipase 133 -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 Pappas -will follow clinical course <Eli Nails - Last Filed: 01/05/19 12:39> Meds - Medications Medications: Current Medications Al Hydrox/Mg Hydrox/Simethicone (Maalox 30 Ml) 30 ml PO BID PRN PRN Reason: Indigestion / Heartburn Aspirin (Ecotrin) 81 mg PO DAILY [facility] Last Admin: 01/05/19 09:28 Dose: 81 mg Docusate Sodium (Colace) 100 mg PO TID [facility] Last Admin: 01/05/19 09:28 Dose: 100 mg Enoxaparin Sodium (Lovenox) 40 mg SC DAILY [facility] Last Admin: 01/05/19 09:27 Dose: 40 mg Hydrochlorothiazide (Microzide) 12.5 mg PO DAILY [facility] Last Admin: 01/05/19 09:28 Dose: 12.5 mg Insulin Human Regular (Novolin R) 0 unit SC [facility]; Protocol Last Admin: 01/05/19 11:31 Dose: 3 unit Lisinopril (Zestril) 10 mg PO DAILY [facility] Last Admin: 01/05/19 09:28 Dose: 10 mg Metoclopramide HCl (Reglan) 10 mg IVP ACHS [facility] Morphine Sulfate (Morphine) 1 mg IVP Q6 PRN PRN Reason: Pain, moderate (4-7) Last Admin: 01/05/19 03:10 Dose: 1 mg Pantoprazole Sodium (Protonix Ec Tab) 40 mg PO DAILY [facility] Last Admin: 01/05/19 09:28 Dose: 40 mg Polyethylene Glycol (Miralax) 17 gm PO BID [facility] Last Admin: 01/05/19 09:27 Dose: Not Given Tramadol HCl (Ultram) 50 mg PO TID PRN PRN Reason: Pain, severe (8-10) Last Admin: 01/05/19 09:40 Dose: 50 mg Results - Vital Signs Recent Vital Signs: Last Vital Signs Temp 99.6 F 01/05/19 07:00 Pulse 100 H 01/05/19 07:00 Resp 20 01/05/19 07:00 BP 100/71 01/05/19 07:00 Pulse Ox 96 01/05/19 07:00 - Labs Result Diagrams: 01/05/19 07:50 01/05/19 07:50 Labs: Laboratory Results - last 24 hr 01/02/19 01/04/19 01/04/19 08:07 16:25 21:26 WBC RBC Hgb Hct MCV MCH MCHC RDW Plt Count MPV Neut % (Auto) Lymph % (Auto) Emanuel % (Auto) Eos % (Auto) Baso % (Auto) Neut # (Auto) Lymph # (Auto) Emanuel # (Auto) Eos # (Auto) Baso # (Auto) Sodium Potassium Chloride Carbon Dioxide Anion Gap BUN Creatinine Est GFR ( Amer) Est GFR (Non-Af Amer) POC Glucose (mg/dL) 194 H 215 H Random Glucose Calcium Total Bilirubin AST ALT Alkaline Phosphatase Troponin I Total Protein Albumin Globulin Albumin/Globulin Ratio C.trachomatis RNA (TMA) Not detected N.gonorrhoeae RNA (TMA) Not detected 01/05/19 01/05/19 01/05/19 02:11 07:08 07:50 WBC 6.6 RBC 4.61 Hgb 12.9 Hct 38.9 MCV 84.3 MCH 28.0 MCHC 33.2 RDW 15.6 H Plt Count 171 MPV 8.7 Neut % (Auto) 41.8 L Lymph % (Auto) 53.6 H Emanuel % (Auto) 3.3 Eos % (Auto) 0.8 Baso % (Auto) 0.5 Neut # (Auto) 2.7 Lymph # (Auto) 3.5 Emanuel # (Auto) 0.2 Eos # (Auto) 0.1 Baso # (Auto) 0.0 Sodium Potassium Chloride Carbon Dioxide Anion Gap BUN Creatinine Est GFR ( Amer) Est GFR (Non-Af Amer) POC Glucose (mg/dL) 173 H 196 H Random Glucose Calcium Total Bilirubin AST ALT Alkaline Phosphatase Troponin I Total Protein Albumin Globulin Albumin/Globulin Ratio C.trachomatis RNA (TMA) N.gonorrhoeae RNA (TMA) 01/05/19 01/05/19 07:50 11:08 WBC RBC Hgb Hct MCV MCH MCHC RDW Plt Count MPV Neut % (Auto) Lymph % (Auto) Emanuel % (Auto) Eos % (Auto) Baso % (Auto) Neut # (Auto) Lymph # (Auto) Emanuel # (Auto) Eos # (Auto) Baso # (Auto) Sodium 136 Potassium 4.0 Chloride 96 L Carbon Dioxide 32 H Anion Gap 12 BUN 7 Creatinine 0.7 Est GFR ( Amer) > 60 Est GFR (Non-Af Amer) > 60 POC Glucose (mg/dL) 316 H Random Glucose 197 H Calcium 9.6 Total Bilirubin 0.5 AST 91 H D ALT 329 H D Alkaline Phosphatase 241 H Troponin I < 0.0120 Total Protein 7.5 Albumin 4.3 Globulin 3.2 Albumin/Globulin Ratio 1.3 C.trachomatis RNA (TMA) N.gonorrhoeae RNA (TMA) Attending/Attestation - Attestation I have personally seen and examined this patient.: Yes I have fully participated in the care of the patient.: Yes I have reviewed all pertinent clinical information: Yes Notes (Text): 01/05/19 12:24 I have seen and examined the patient with the GI fellow. This is a 58 yo Yoruba speaking F with poorly controlled DM (HbA1c 9.8), HTN, s/p lap cholecystectomy (~20 yrs ago) with chronic intermittent RUQ abdominal pain, with recent UTI and PO abx (Keflex 500 mg po bid x 5 days) now here for persistent b/l upper quadrant abdominal pain radiating to the back. At baseline, she gets intermittent RUQ abdominal pain that usually resolves on its own. However, the past few days, it has been constant and worse with PO intake (not with liquids). Denies NSAID use, alcohol use, OTC herbs/supplements, or acid suppressive medication use. Prior EGD/colonoscopy in 2017 (Dr. Pappas) and notable for gastritis and few benign polyps, repeat in 5 yrs. Pt with mildly elevated AST/ALT on admission and normal ALP, but then developed increasing AST/ALT to 600, ALP 241. Tbili has remained normal. Now downtrending. General: appears older than stated age, appears uncomfortable Abd: soft, mildly distended, mild tenderness in RUQ and RLQ Plan: 1) abnormal LFTs -suspect abnormal LFTs related to recent abx use (Keflex) -continue to trend -outside CT abd/pelvis on 12/23/18 showed CBD 9 mm as well as normal LFTs, similar to imaging here -MRCP reviewed by me, CBD is dilated, but tapers distally and no filling defects seen -r/o autoimmune hepatitis 2) acute on chronic abdominal pain -? SOD type 2 as pt is s/p lap shyanne and dilated CBD is not uncommon vs. functional dyspepsia vs. underlying gastroparesis -continue PPI daily -trial of Maalox -trial of Reglan 10 mg IV achs for motility -continue Miralax -d/w pt
[2019-01-05] MEDS ORDERED: Promethazine 12.5 mg/10 ml Syrup PO PRN (11:16)
[2019-01-05] MEDS ORDERED: Promethazine 12.5 mg/10 ml Syrup PO ONE (11:18)
[2019-01-05] MEDS: Aluminum Hydroxide/Magnesium Hydroxide Susp (30 mL) PO PRN (13:10)
[2019-01-05 15:54] LABS: BARBITURATES, UR NEGATIVE (NEGATIVE); BENZODIAZEPINES, UR NEGATIVE (NEGATIVE); PHENCYCLIDINE, UR NEGATIVE (NEGATIVE)
[2019-01-05 16:01] LABS: OPIATES, UR POSITIVE (NEGATIVE)
[2019-01-05] MEDS ORDERED: Sodium Chloride 0.9% 1,000 ML IV SCH (16:15)
--- NOTE | 2019-01-05 16:47 | RAD ---
Date of service: 01/05/2019 HISTORY: New onset fever COMPARISON: No prior. TECHNIQUE: Chest PA and lateral FINDINGS: LINES AND TUBES: None. LUNG AND PLEURA: The lungs are well inflated. There is bibasilar atelectasis. No lobar pneumonia. No pleural effusion or pneumothorax. HEART AND MEDIASTINUM: The heart is not enlarged. No aortic atherosclerotic calcifications present. The hilar and mediastinal contours are within normal limits. SKELETAL STRUCTURES: The bony structures are within normal limits for the patient's age. VISUALIZED UPPER ABDOMEN: Normal. OTHER FINDINGS: None. IMPRESSION: No active pulmonary disease.
[2019-01-05] MEDS: Piperacillin/Tazobact 3.375 GM in Sodium Chloride 100 ML IVPB SCH (17:39)
[2019-01-06] MEDS: Piperacillin/Tazobact 3.375 GM in Sodium Chloride 100 ML IVPB SCH ×3 (00:31→17:12)
[2019-01-06] MEDS: Sodium Chloride 0.9% 1,000 ML IV SCH ×3 (02:00→16:20)
[2019-01-06 06:56] LABS: BASO % 0.9 % (0.0-2.0); EOS % 0.2 % (0.0-4.0); HEMOGLOBIN 11.2 g/dL (11.0-16.0); LYMPH # 2.9 K/uL (1.0-4.3); LYMPH % 57.3 % (20.0-40.0); MEAN CORPUSCULAR HEMOGLOBIN 28.1 pg (27.0-31.0); MEAN CORPUSCULAR HGB CONC 33.4 g/dL (33.0-37.0); MEAN PLATELET VOLUME 8.6 fL (7.2-11.7); MONO # 0.2 K/uL (0.0-0.8); MONO % 4.6 % (0.0-10.0); NEUT # 1.8 K/uL (1.8-7.0); NRBC % 0.7 % (0.0-2.0); RED CELL DISTRIBUTION WIDTH 15.7 % (11.5-14.5)
[2019-01-06 07:47] LABS: ALB/GLOB RATIO 1.2 (1.0-2.1); ALBUMIN 3.7 g/dL (3.5-5.0); ALT/SGPT 215 U/L (9-52); AST/SGOT 97 U/L (14-36); BLOOD UREA NITROGEN 7 mg/dL (7-17); CALCIUM 8.8 mg/dl (8.6-10.4); GAMMA GLUTAMYL TRANSPEPTIDASE 153 U/L (8-78); GFR NON-AFRICAN AMERICAN > 60
[2019-01-06] MEDS: (Novolin R) Insulin Human Regular 100 units/ml vial SC SCH ×4 (08:30→21:44)
--- NOTE | 2019-01-06 08:46 | CP.PCM.PN ---
Subjective - Date & Time of Evaluation Date of Evaluation: 01/06/19 Time of Evaluation: 08:40 - Subjective Subjective: PGY1 Medicine Progress Note for Dr. Leon Patient seen and evaluated at bedside this morning. Overnight, the Patient spiked a fever. Blood/Urine cultures were ordered. Patient started on ABX and motrin. Today, Patient continues to have RUQ abdominal pain. Of note, Patient is tolerating her diet, however she has not had a BM x2 days. Patient otherwise denies headache, chest pain, shortness of breath, nause, vomiting, diarrhea, dysuria, and/or rash. Objective - Vital Signs/Intake and Output Vital Signs (last 24 hours): Temp Pulse Resp BP Pulse Ox 99.4 F 105 H 20 117/78 95 01/06/19 07:42 01/06/19 07:42 01/06/19 07:42 01/06/19 07:42 01/06/19 07:42 - Medications Medications: Current Medications Al Hydrox/Mg Hydrox/Simethicone (Maalox 30 Ml) 30 ml PO BID PRN PRN Reason: Indigestion / Heartburn Last Admin: 01/05/19 13:10 Dose: 30 ml Aspirin (Ecotrin) 81 mg PO DAILY [facility] Last Admin: 01/05/19 09:28 Dose: 81 mg Docusate Sodium (Colace) 100 mg PO TID [facility] Last Admin: 01/05/19 17:38 Dose: 100 mg Enoxaparin Sodium (Lovenox) 40 mg SC DAILY [facility] Last Admin: 01/05/19 09:27 Dose: 40 mg Hydrochlorothiazide (Microzide) 12.5 mg PO DAILY [facility] Last Admin: 01/05/19 09:28 Dose: 12.5 mg Piperacillin Sod/Tazobactam (Sod 3.375 gm/ Sodium Chloride) 100 mls @ 200 mls/hr IVPB Q8H [facility]; Protocol Last Admin: 01/06/19 00:31 Dose: 200 mls/hr Sodium Chloride (Sodium Chloride 0.9%) 1,000 mls @ 130 mls/hr IV .[id number] [facility] Last Admin: 01/06/19 02:00 Dose: 130 mls/hr Insulin Human Regular (Novolin R) 0 unit SC [facility]; Protocol Last Admin: 01/05/19 21:23 Dose: 2 u Lisinopril (Zestril) 10 mg PO DAILY [facility] Last Admin: 01/05/19 09:28 Dose: 10 mg Metoclopramide HCl (Reglan) 10 mg IVP A[facility] Last Admin: 01/05/19 21:24 Dose: 10 mg Morphine Sulfate (Morphine) 1 mg IVP Q6 PRN PRN Reason: Pain, moderate (4-7) Last Admin: 01/06/19 00:33 Dose: 1 mg Pantoprazole Sodium (Protonix Ec Tab) 40 mg PO DAILY [facility] Last Admin: 01/05/19 09:28 Dose: 40 mg Polyethylene Glycol (Miralax) 17 gm PO BID [facility] Last Admin: 01/05/19 17:38 Dose: 17 gm Tramadol HCl (Ultram) 50 mg PO TID PRN PRN Reason: Pain, severe (8-10) Last Admin: 01/05/19 09:40 Dose: 50 mg - Labs Labs: 01/06/19 06:47 01/06/19 06:47 - Additional Findings Additional findings: - Constitutional Appears: Non-toxic, No Acute Distress - Head Exam Head Exam: ATRAUMATIC, NORMOCEPHALIC - Eye Exam Eye Exam: EOMI - ENT Exam ENT Exam: Mucous Membranes Moist - Respiratory Exam Respiratory Exam: Clear to Auscultation Bilateral. absent: Rales, Rhonchi, Wheezes - Cardiovascular Exam Cardiovascular Exam: REGULAR RHYTHM, +S1, +S2. absent: Diastolic murmur, Gallop, Rubs, Systolic Murmur - GI/Abdominal Exam GI & Abdominal Exam: RUQ tenderness, neg fisher's, post CVA tenderness bilaterally. Normal Bowel Sounds, Soft. absent: Distended, Firm, Guarding, Organomegaly, Rebound, Rigid, - Extremities Exam Extremities exam: Negative for: pedal edema, tenderness - Neurological Exam Neurological exam: Alert, Oriented x3 - Psychiatric Exam Psychiatric exam: Normal Affect, Normal Mood - Skin Skin Exam: Dry, Intact, Normal Color, Warm, no jaundice Assessment and Plan - Assessment and Plan (Free Text) Assessment: 58 year old female with no significant past medical history is admitted for intractable abd pain. Abd US in ED showed echogenic liver which may be seen in hepatic parenchymal disease or fatty infiltrate; cholecystectomy. Abd CT showed diverticulosis (no diverticulitis); moderate constipation; dilated CBD (about 10 mm); 4 mm distal left ureteral calculus. On 01/05, Patient had fever, miller cultures obtained, antibiotics were started, and Motrin was given for fever. Acute Transaminitis - LFTs trending down today, monitor - Possibly secondary to toradol - AlkPhos uptrending - CT Abd: 10mm CBD - MRCP: 11cm dilatation, jeannette benign, no stone, s/p cholecystectomy - Dr Virgil King Consulted dilated CBD most likely benign finding related to post cholecystectomy dilation - no evidence of stone, mass causing obstruction on MRCP or US no surgical intervention at this time, rec GI f/u - GI consulted (Dr. Nails) Intractable abdominal pain - Normal lipase (133), t. Bili (0.2) and alk phos (112) - Hepatitis panel negative; GC/Chlamydia negative - GI, Dr. Mahan: f/u recs - HHD - Febrile --> Motrin 400 stat - Zosyn 3.375 q8 IVPB started 01/05 - Avoid tylenol - Active Pt cooling if needed - Blood / Urine cultures obtained - Morphine 1 mg q6 prn DC'd - Tramadol 50 TID - Zofran q6 prn for nausea - Colace 100 TID - Will hold oral hypoglycemic agent Thrombocytopenia - Likely dilutional; rule-out HIT - Lovenox discontinued - F/U Heparin - platelet antibody - Monitor CBC DM - Will hold oral hypoglycemic agents - ISS - increased to high - Accu checks ACHS - hypoglycemic protocol - HgbA1c 9.8 HTN - Continue home med lisinopri/HCTZ 06/28.5 Prophylaxis - Protonix 40 qd - SCDs - lovenox - discontinued due to thrombocytopenia DISPO: will d/c tomorrow once fever resolves x24 hrs Discussed with Dr. Edward Field PGY1
--- NOTE | 2019-01-06 09:06 | CP.PCM.PN ---
<Pancho Roche - Last Filed: 01/06/19 09:21> Subjective - Date & Time of Evaluation Date of Evaluation: 01/06/19 Time of Evaluation: 09:04 - Subjective Subjective: Patient had fevers overnight, ~102 degrees. Still having RUQ abdominal pain. No BMs since 2 days ago. No vomiting or dysuria or rash or arthritis. Objective - Vital Signs/Intake and Output Vital Signs (last 24 hours): Temp Pulse Resp BP Pulse Ox 99.4 F 105 H 20 117/78 95 01/06/19 07:42 01/06/19 07:42 01/06/19 07:42 01/06/19 07:42 01/06/19 07:42 - Medications Medications: Current Medications Al Hydrox/Mg Hydrox/Simethicone (Maalox 30 Ml) 30 ml PO BID PRN PRN Reason: Indigestion / Heartburn Last Admin: 01/05/19 13:10 Dose: 30 ml Aspirin (Ecotrin) 81 mg PO DAILY [facility] Last Admin: 01/05/19 09:28 Dose: 81 mg Docusate Sodium (Colace) 100 mg PO TID [facility] Last Admin: 01/05/19 17:38 Dose: 100 mg Enoxaparin Sodium (Lovenox) 40 mg SC DAILY [facility] Last Admin: 01/05/19 09:27 Dose: 40 mg Hydrochlorothiazide (Microzide) 12.5 mg PO DAILY [facility] Last Admin: 01/05/19 09:28 Dose: 12.5 mg Piperacillin Sod/Tazobactam (Sod 3.375 gm/ Sodium Chloride) 100 mls @ 200 mls/hr IVPB Q8H [facility]; Protocol Last Admin: 01/06/19 08:41 Dose: 200 mls/hr Sodium Chloride (Sodium Chloride 0.9%) 1,000 mls @ 130 mls/hr IV .Q7H42M [facility] Last Admin: 01/06/19 02:00 Dose: 130 mls/hr Insulin Human Regular (Novolin R) 0 unit SC [facility]; Protocol Lisinopril (Zestril) 10 mg PO DAILY [facility] Last Admin: 01/05/19 09:28 Dose: 10 mg Metoclopramide HCl (Reglan) 10 mg IVP [facility] Last Admin: 01/06/19 08:30 Dose: 10 mg Morphine Sulfate (Morphine) 1 mg IVP Q6 PRN PRN Reason: Pain, moderate (4-7) Last Admin: 01/06/19 00:33 Dose: 1 mg Pantoprazole Sodium (Protonix Ec Tab) 40 mg PO DAILY [facility] Last Admin: 01/05/19 09:28 Dose: 40 mg Polyethylene Glycol (Miralax) 17 gm PO BID [facility] Last Admin: 01/05/19 17:38 Dose: 17 gm Tramadol HCl (Ultram) 50 mg PO TID PRN PRN Reason: Pain, severe (8-10) Last Admin: 01/06/19 08:40 Dose: 50 mg - Labs Labs: 01/06/19 06:47 01/06/19 06:47 - Constitutional Appears: Non-toxic, No Acute Distress - Head Exam Head Exam: ATRAUMATIC, NORMAL INSPECTION - Respiratory Exam Respiratory Exam: Clear to Ausculation Bilateral, NORMAL BREATHING PATTERN - Cardiovascular Exam Cardiovascular Exam: REGULAR RHYTHM, +S1, +S2 - GI/Abdominal Exam GI & Abdominal Exam: Soft, Tenderness, Normal Bowel Sounds - Extremities Exam Extremities Exam: Normal Inspection. absent: Pedal Edema - Neurological Exam Neurological Exam: Alert, Awake, Oriented x3 - Psychiatric Exam Psychiatric exam: Normal Affect, Normal Mood - Skin Skin Exam: Normal Color, Warm Assessment and Plan - Assessment and Plan (Free Text) Assessment: 58 year old female with PMH of cholecystectomy 20 years ago, HTN, and Diabetes presenting with persistent right abdominal pain wrapping around flank to back since 12/23 with discharge from [facility] 12/23-12/25 s/p treatment for UTI with likely Keflex 500mg BID for five days (finished 12/30). Advanced endoscopist consultation for LFTs. Prior EGD/colonoscopy 2017 endorsed to have gastritis and polyps with recommendation for five year surveillance. Follows with GI- Dr. Pappas. Plan: -LFTs possibly 2/2 DILI with recent Keflex completed 12/30 -Hepatitis panel negative, ordered autoimmune serologies, iron, TSH -reviewed U/S, CT, and MRCP - no biliary pathology noted -contacted [facility] - spoke to ER physician -CBD 9mm on CT A/P 12/23 -CBD dilatation in setting of cholecystectomy -Abdominal pain Differential- SOD, gastroparesis, constipation, dyspepsia. We must rule out infectious etiology as patient is having fevers. -Blood cultures pending. 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 Pappas -will follow clinical course Case discussed with Dr. Lowery, see attestation. <Surinder Lowery Y - Last Filed: 01/06/19 10:18> Objective - Vital Signs/Intake and Output Vital Signs (last 24 hours): Temp Pulse Resp BP Pulse Ox 99.4 F 105 H 20 117/78 95 01/06/19 07:42 01/06/19 07:42 01/06/19 07:42 01/06/19 07:42 01/06/19 07:42 - Medications Medications: Current Medications Al Hydrox/Mg Hydrox/Simethicone (Maalox 30 Ml) 30 ml PO BID PRN PRN Reason: Indigestion / Heartburn Last Admin: 01/05/19 13:10 Dose: 30 ml Aspirin (Ecotrin) 81 mg PO DAILY [facility] Last Admin: 01/06/19 10:10 Dose: 81 mg Docusate Sodium (Colace) 100 mg PO TID [facility] Last Admin: 01/06/19 10:09 Dose: 100 mg Enoxaparin Sodium (Lovenox) 40 mg SC DAILY [facility] Last Admin: 01/06/19 10:11 Dose: 40 mg Hydrochlorothiazide (Microzide) 12.5 mg PO DAILY [facility] Last Admin: 01/06/19 10:10 Dose: 12.5 mg Piperacillin Sod/Tazobactam (Sod 3.375 gm/ Sodium Chloride) 100 mls @ 200 mls/hr IVPB Q8H [facility]; Protocol Last Admin: 01/06/19 08:41 Dose: 200 mls/hr Sodium Chloride (Sodium Chloride 0.9%) 1,000 mls @ 130 mls/hr IV .Q7H42M [facility] Last Admin: 01/06/19 10:08 Dose: 130 mls/hr Insulin Human Regular (Novolin R) 0 unit SC ACHS [facility]; Protocol Lisinopril (Zestril) 10 mg PO DAILY [facility] Last Admin: 01/06/19 10:09 Dose: 10 mg Metoclopramide HCl (Reglan) 10 mg IVP ACHS [facility] Last Admin: 01/06/19 08:30 Dose: 10 mg Morphine Sulfate (Morphine) 1 mg IVP Q6 PRN PRN Reason: Pain, moderate (4-7) Last Admin: 01/06/19 00:33 Dose: 1 mg Pantoprazole Sodium (Protonix Ec Tab) 40 mg PO DAILY [facility] Last Admin: 01/06/19 10:10 Dose: 40 mg Polyethylene Glycol (Miralax) 17 gm PO BID [facility] Last Admin: 01/06/19 10:10 Dose: 17 gm Tramadol HCl (Ultram) 50 mg PO TID PRN PRN Reason: Pain, severe (8-10) Last Admin: 01/06/19 08:40 Dose: 50 mg - Labs Labs: 01/06/19 06:47 01/06/19 06:47 Attending/Attestation - Attestation I have personally seen and examined this patient.: Yes I have fully participated in the care of the patient.: Yes I have reviewed all pertinent clinical information, including history, physical exam and plan: Yes Notes (Text): 01/06/19 10:15 I have seen and examined patient with GI fellow. No acute events overnight, she notes ongoing abdominal pain in RUQ/epigastric region. She denies nausea, vomiting. No bowel movements in last 48 hours. Review of vitals from today shows tachycardia. HTN/DM UTI, recently treated Transaminitis Fever - Diet as tolerated - LFTs trending down, continue to monitor and avoid hepatotoxic therapies - Follow up autoimmune workup - Follow up blood culture results - Maintain bowel regimen to prevent recurrent constipation - No planned advanced endoscopic intervention at this time, further management as per primary GI team. Will sign off case, please reconsult as necessary, thank you.
[2019-01-06] MEDS: Pantoprazole 40 mg EC Tab PO SCH (10:10)
[2019-01-06] MEDS: POLYETHYLENE GLYCOL 3350 17 GM/Dose PACKET PO SCH ×2 (10:10→17:10)
[2019-01-06] MEDS: Enoxaparin 40 mg Syringe SC SCH (10:11)
[2019-01-06 10:22] LABS: IRON 41 ug/dL (37-170)
[2019-01-06 10:31] LABS: % IRON SATURATION 16 (20-55); TOTAL IRON BINDING CAPACITY 258 ug/dL (250-450)
[2019-01-06] MEDS: Aluminum Hydroxide/Magnesium Hydroxide Susp (30 mL) PO PRN (17:09)
[2019-01-07] MEDS: Piperacillin/Tazobact 3.375 GM in Sodium Chloride 100 ML IVPB SCH (00:14)
[2019-01-07] MEDS: Sodium Chloride 0.9% 1,000 ML IV SCH ×5 (00:15→22:20)
[2019-01-07 06:48] LABS: BASO % 1.1 % (0.0-2.0); EOS % 0.6 % (0.0-4.0); HEMOGLOBIN 10.7 g/dL (11.0-16.0); LYMPH # 2.3 K/uL (1.0-4.3); LYMPH % 63.1 % (20.0-40.0); MEAN CELL VOLUME 84.5 fL (81.0-99.0); MEAN CORPUSCULAR HEMOGLOBIN 28.1 pg (27.0-31.0); MEAN CORPUSCULAR HGB CONC 33.2 g/dL (33.0-37.0); MEAN PLATELET VOLUME 8.3 fL (7.2-11.7); MONO # 0.1 K/uL (0.0-0.8); MONO % 2.9 % (0.0-10.0); NEUT # 1.2 K/uL (1.8-7.0); NEUT % 32.3 % (50.0-75.0); NRBC % 0.5 % (0.0-2.0); RBC 3.8 Mil/uL (3.80-5.20); RED CELL DISTRIBUTION WIDTH 15.8 % (11.5-14.5); WHITE BLOOD COUNT 3.6 K/uL (4.8-10.8)
[2019-01-07 07:41] LABS: ALB/GLOB RATIO 1.2 (1.0-2.1); ALBUMIN 3.5 g/dL (3.5-5.0); ALT/SGPT 157 U/L (9-52); AST/SGOT 89 U/L (14-36); BLOOD UREA NITROGEN 7 mg/dL (7-17); CALCIUM 8.9 mg/dl (8.6-10.4); GFR NON-AFRICAN AMERICAN > 60
[2019-01-07] MEDS: (Novolin R) Insulin Human Regular 100 units/ml vial SC SCH ×4 (07:44→21:52)
[2019-01-07] MEDS ORDERED: metroNIDAZOLE IV 500 mg/100 ml 500 MG/100 ML BAG IVPB SCH (09:00)
[2019-01-07 09:05] LABS: INR 1.2; PROTHROMBIN TIME 13.5 SECONDS (9.7-12.2)
[2019-01-07] MEDS: Pantoprazole 40 mg EC Tab PO SCH (09:32)
[2019-01-07] MEDS: POLYETHYLENE GLYCOL 3350 17 GM/Dose PACKET PO SCH ×2 (09:32→17:35)
[2019-01-07 09:37] LABS: PLATELET COUNT MANUAL 47 K/uL (130-400)
--- NOTE | 2019-01-07 11:26 | CP.PCM.PN ---
Subjective - Date & Time of Evaluation Date of Evaluation: 01/07/19 Time of Evaluation: 11:26 - Subjective Subjective: PGY1 Medicine Progress Note for Dr. Leon Patient seen and evaluated at bedside this morning. No acute events overnight. No new complaints. Patient is tolerating her diet, however she has not had a BM x3 days despite the miralax. Patient otherwise denies epistaxis, bleeding of gums, rash, hematemesis, hematuria, headache, chest pain, shortness of breath, nausea, vomiting, diarrhea, dysuria, and/or rash. Objective - Vital Signs/Intake and Output Vital Signs (last 24 hours): Temp Pulse Resp BP Pulse Ox 98.9 F 110 H 20 144/90 96 01/07/19 07:00 01/07/19 07:00 01/07/19 07:00 01/07/19 07:00 01/07/19 07:00 Intake and Output: 01/07/19 01/07/19 06:59 18:59 Intake Total 2580 Balance 2580 - Medications Medications: Current Medications Al Hydrox/Mg Hydrox/Simethicone (Maalox 30 Ml) 30 ml PO BID PRN PRN Reason: Indigestion / Heartburn Last Admin: 01/06/19 17:09 Dose: 30 ml Docusate Sodium (Colace) 100 mg PO TID [facility] Last Admin: 01/07/19 09:32 Dose: 100 mg Hydrochlorothiazide (Microzide) 12.5 mg PO DAILY [facility] Last Admin: 01/07/19 09:32 Dose: 12.5 mg Sodium Chloride (Sodium Chloride 0.9%) 1,000 mls @ 130 mls/hr IV .Q7H42M [facility] Last Admin: 01/07/19 07:59 Dose: Not Given Insulin Human Regular (Novolin R) 0 unit SC ACHS [facility]; Protocol Last Admin: 01/07/19 07:44 Dose: 4 units Metoclopramide HCl (Reglan) 10 mg IVP ACHS [facility] Last Admin: 01/07/19 07:59 Dose: 10 mg Morphine Sulfate (Morphine) 1 mg IVP Q6 PRN PRN Reason: Pain, moderate (4-7) Last Admin: 01/07/19 04:19 Dose: 1 mg Pantoprazole Sodium (Protonix Ec Tab) 40 mg PO DAILY [facility] Last Admin: 01/07/19 09:32 Dose: 40 mg Polyethylene Glycol (Miralax) 17 gm PO BID [facility] Last Admin: 01/07/19 09:32 Dose: 17 gm Tramadol HCl (Ultram) 50 mg PO TID PRN PRN Reason: Pain, severe (8-10) Last Admin: 01/06/19 14:58 Dose: 50 mg - Labs Labs: 01/07/19 06:40 01/07/19 06:40 PT 13.5 SECONDS (9.7-12.2) H 01/07/19 08:40 INR 1.2 01/07/19 08:40 APTT 38.0 SECONDS (21-34) H 01/07/19 08:40 - Constitutional Appears: Non-toxic, No Acute Distress, Chronically Ill - Head Exam Head Exam: ATRAUMATIC, NORMAL INSPECTION, NORMOCEPHALIC - Eye Exam Eye Exam: EOMI, Normal appearance, PERRL. absent: Scleral icterus Pupil Exam: NORMAL ACCOMODATION - ENT Exam ENT Exam: Mucous Membranes Moist, Normal Exam Additional comments: no petechiae observed in oral mucosa, gums, and/or tongue - Neck Exam Neck Exam: Full ROM, Normal Inspection - Respiratory Exam Respiratory Exam: Clear to Ausculation Bilateral, NORMAL BREATHING PATTERN - Cardiovascular Exam Cardiovascular Exam: REGULAR RHYTHM, +S1, +S2 - GI/Abdominal Exam GI & Abdominal Exam: Soft, Normal Bowel Sounds - Extremities Exam Extremities Exam: Full ROM, Normal Capillary Refill, Normal Inspection Additional comments: no rash, no petechiae - Back Exam Back Exam: NORMAL INSPECTION. absent: rash noted - Neurological Exam Neurological Exam: Alert, Awake, CN II-XII Intact, Oriented x3 - Psychiatric Exam Psychiatric exam: Normal Affect, Normal Mood - Skin Skin Exam: Dry, Intact, Normal Color, Warm. absent: Petechiae, Rash Assessment and Plan - Assessment and Plan (Free Text) Assessment: 58 year old female with no significant past medical history is admitted for intractable abd pain. Abd US in ED showed echogenic liver which may be seen in hepatic parenchymal disease or fatty infiltrate; cholecystectomy. Abd CT showed diverticulosis (no diverticulitis); moderate constipation; dilated CBD (about 10 mm); 4 mm distal left ureteral calculus. On 01/05, Patient had fever, miller cultures obtained, antibiotics were started, and Motrin was given for fever. Acute Transaminitis - LFTs trending down today, monitor - AlkPhos uptrending - CT Abd: 10mm CBD - MRCP: 11cm sivakumar, jeannette benign, no stone, s/p cholecystectomy - Dr Virgil King Consulted dilated CBD most likely benign finding related to post cholecystectomy dilation - no evidence of stone, mass causing obstruction on MRCP or US no surgical intervention at this time, rec GI f/u - GI consulted (Dr. Nails) - F/U Autoimmune work-up - Monitor CMP Intractable abdominal pain - Normal lipase (133), t. Bili (0.2) and alk phos (112) - Hepatitis panel negative; GC/Chlamydia negative - GI, Dr. Mahan: f/u recs - HHD - Febrile --> Motrin 400 stat - Zosyn 3.375 q8 IVPB started 01/05 (DISCONTINUED on 01/06) - Avoid tylenol - Active Pt cooling if needed - Blood / Urine cultures obtained - Morphine 1 mg q6 prn DC'd - Tramadol 50 TID - Zofran q6 prn for nausea - Colace 100 TID - Will hold oral hypoglycemic agent Thrombocytopenia, unknown etiology - Drop from 101 01/06--> 47 01/07 - Heme-Onc consulted (Dr. Moss); recommendations appreciated - Febrile - ID consulted (Dr. Villarreal); recommendations appreciated - Rule-out HIT - F/U HIT antibody - Lovenox discontinued - Zosyn discontinued - F/U Heparin - platelet antibody - F/U peripheral smear - Manual platelet count: 47 - PT and PTT: 13.5 and 38 respectively - No signs of active bleeding at this time - Monitor CBC UTI - 01/07 Urine culture: + Enterococcus Faecalis - ABX started: Cipro IVPB x1 dose administered - ID consulted (Dr. Villarreal); recommendations appreciated DM - Will hold oral hypoglycemic agents - ISS - increased to high - Accu checks ACHS - hypoglycemic protocol - HgbA1c 9.8 HTN - Continue home med lisinopri/HCTZ 06/28.5 Prophylaxis - Protonix 40 qd - SCDs - lovenox - discontinued due to thrombocytopenia Patient seen and case discussed with Dr. Edward Field PGY1
[2019-01-07] MEDS: Ciprofloxacin 400mg/200ml D5W 400 MG/200 ML BAG IVPB SCH (14:29)
--- NOTE | 2019-01-07 23:23 | CP.PCM.CON ---
History of Present Illness - History of Present Illness History of Present Illness: 58 year old female with a history of DM, HTN, recent UTI treatment, admitted with RUQ abdominal pain, found to have pancytopenia. The patient notes to recent antibiotics which per prescribed after being told she [place] [facility] She denies fevers and chills. She does have RUQ abdominal pain. She denies blood problems in the past. She denies abnormal bleeding and bruising. Past medical history: DM, HTN Past surgical history: Cholecystectomy Family history: Denies hematologic and oncologic problems Social history: Denies tobacco, alcohol, and illicit drug use. Allergies: NKA Review of systems: All remaining review of systems including HEENT, cardiovascular, respiratory, gastrointestinal, genitourinary, musculoskeletal, dermatologic, neurologic, and psychiatric are negative unless mentioned in the HPI. Past Patient History - Past Medical History & Family History Past Medical History?: Yes - Past Social History Smoking Status: Unknown If Ever Smoked - CARDIAC Hx Hypertension: Yes - ENDOCRINE/METABOLIC Hx Diabetes Mellitus Type 2: Yes - INTEGUMENTARY Hx Dermatological Problems: Yes (mass on back) - MUSCULOSKELETAL/RHEUMATOLOGICAL Hx Falls: No - PSYCHIATRIC Hx Substance Use: No - SURGICAL HISTORY Hx Cholecystectomy: Yes - ANESTHESIA Hx Anesthesia: Yes Hx Anesthesia Reactions: No Hx Malignant Hyperthermia: No Meds Allergies/Adverse Reactions: Allergies Allergy/AdvReac Type Severity Reaction Status Date / Time No Known Allergies Allergy Verified 01/02/19 07:14 - Medications Medications: Current Medications Al Hydrox/Mg Hydrox/Simethicone (Maalox 30 Ml) 30 ml PO BID PRN PRN Reason: Indigestion / Heartburn Last Admin: 01/06/19 17:09 Dose: 30 ml Docusate Sodium (Colace) 100 mg PO TID [facility] Last Admin: 01/07/19 17:36 Dose: 100 mg Hydrochlorothiazide (Microzide) 12.5 mg PO DAILY [facility] Last Admin: 01/07/19 09:32 Dose: 12.5 mg Sodium Chloride (Sodium Chloride 0.9%) 1,000 mls @ 130 mls/hr IV .Q7H42M [facility] Last Admin: 01/07/19 22:20 Dose: 130 mls/hr Ciprofloxacin (Cipro 400mg/200ml Dsw) 400 mg in 200 mls @ 133 mls/hr IVPB Q12H [facility]; Protocol Last Admin: 01/07/19 14:29 Dose: 133 mls/hr Insulin Human Regular (Novolin R) 0 unit SC [facility]; Protocol Last Admin: 01/07/19 21:52 Dose: Not Given Metoclopramide HCl (Reglan) 10 mg IVP [facility] Last Admin: 01/07/19 21:48 Dose: 10 mg Morphine Sulfate (Morphine) 1 mg IVP Q6 PRN PRN Reason: Pain, moderate (4-7) Last Admin: 01/07/19 19:20 Dose: 1 mg Polyethylene Glycol (Miralax) 17 gm PO BID [facility] Last Admin: 01/07/19 17:35 Dose: 17 gm Tramadol HCl (Ultram) 50 mg PO TID PRN PRN Reason: Pain, severe (8-10) Last Admin: 01/06/19 14:58 Dose: 50 mg Physical Exam - Head Exam Head Exam: ATRAUMATIC - Eye Exam Eye Exam: Normal appearance - ENT Exam ENT Exam: Mucous Membranes Dry - Respiratory Exam Respiratory Exam: NORMAL BREATHING PATTERN - Cardiovascular Exam Cardiovascular Exam: +S1, +S2 - GI/Abdominal Exam GI & Abdominal Exam: Normal Bowel Sounds - Extremities Exam Extremities exam: Positive for: normal inspection - Neurological Exam Neurological exam: Oriented x3 - Psychiatric Exam Psychiatric exam: Normal Affect, Normal Mood - Skin Skin Exam: Warm Results - Vital Signs Recent Vital Signs: Last Vital Signs Temp 101.9 F H 01/07/19 15:00 Pulse 110 H 01/07/19 15:00 Resp 20 01/07/19 15:00 BP 118/82 01/07/19 15:00 Pulse Ox 94 L 01/07/19 15:00 - Labs Result Diagrams: 01/07/19 06:40 01/07/19 06:40 Labs: Laboratory Results - last 24 hr 01/05/19 01/07/19 01/07/19 13:53 06:40 06:40 WBC 3.6 L RBC 3.80 Hgb 10.7 L Hct 32.1 L MCV 84.5 MCH 28.1 MCHC 33.2 RDW 15.8 H Plt Count 49 L D Manual Plt Count MPV 8.3 Neut % (Auto) 32.3 L Lymph % (Auto) 63.1 H Thomas % (Auto) 2.9 Eos % (Auto) 0.6 Baso % (Auto) 1.1 Neut # (Auto) 1.2 L Lymph # (Auto) 2.3 Thomas # (Auto) 0.1 Eos # (Auto) 0.0 Baso # (Auto) 0.0 PT INR APTT Sodium 131 L Potassium 4.7 Chloride 96 L Carbon Dioxide 27 Anion Gap 13 BUN 7 Creatinine 0.6 L Est GFR ( Amer) > 60 Est GFR (Non-Af Amer) > 60 POC Glucose (mg/dL) Random Glucose 234 H Calcium 8.9 Total Bilirubin 0.4 AST 89 H ALT 157 H D Alkaline Phosphatase 203 H Total Protein 6.4 Albumin 3.5 Globulin 2.9 Albumin/Globulin Ratio 1.2 Anti-Mitochondrial Ab Negative Smooth Muscle Ab Titer TEST NOT PERFORMED Anti-Smooth Muscle Ab Negative 01/07/19 01/07/19 01/07/19 07:18 07:44 08:40 WBC RBC Hgb Hct MCV MCH MCHC RDW Plt Count Manual Plt Count 47 L MPV Neut % (Auto) Lymph % (Auto) Thomas % (Auto) Eos % (Auto) Baso % (Auto) Neut # (Auto) Lymph # (Auto) Thomas # (Auto) Eos # (Auto) Baso # (Auto) PT 13.5 H INR 1.2 APTT 38.0 H Sodium Potassium Chloride Carbon Dioxide Anion Gap BUN Creatinine Est GFR ( Amer) Est GFR (Non-Af Amer) POC Glucose (mg/dL) 241 H Random Glucose Calcium Total Bilirubin AST ALT Alkaline Phosphatase Total Protein Albumin Globulin Albumin/Globulin Ratio Anti-Mitochondrial Ab Smooth Muscle Ab Titer Anti-Smooth Muscle Ab 01/07/19 01/07/19 01/07/19 11:12 16:25 21:06 WBC RBC Hgb Hct MCV MCH MCHC RDW Plt Count Manual Plt Count MPV Neut % (Auto) Lymph % (Auto) Thomas % (Auto) Eos % (Auto) Baso % (Auto) Neut # (Auto) Lymph # (Auto) Thomas # (Auto) Eos # (Auto) Baso # (Auto) PT INR APTT Sodium Potassium Chloride Carbon Dioxide Anion Gap BUN Creatinine Est GFR ( Amer) Est GFR (Non-Af Amer) POC Glucose (mg/dL) 311 H 315 H 243 H Random Glucose Calcium Total Bilirubin AST ALT Alkaline Phosphatase Total Protein Albumin Globulin Albumin/Globulin Ratio Anti-Mitochondrial Ab Smooth Muscle Ab Titer Anti-Smooth Muscle Ab Assessment & Plan (1) Pancytopenia Assessment and Plan: recommend checking HIV and hepatitis panel ? related to recent antibiotics retic count, b12, folate, ferritin, FOBT to further characterize the patients anemia outpatient repeat CBC in 1-2 weeks if pancytopenia persists, she will require a bone marrow evaluation to rule out bone marrow pathology Thank you for this interesting consult. Status: Acute
[2019-01-08] MEDS: Ciprofloxacin 400mg/200ml D5W 400 MG/200 ML BAG IVPB SCH ×2 (02:44→15:10)
[2019-01-08] MEDS: Sodium Chloride 0.9% 1,000 ML IV SCH ×4 (05:36→22:00)
[2019-01-08 06:26] LABS: BASO % 0.4 % (0.0-2.0); EOS % 0.3 % (0.0-4.0); HEMOGLOBIN 10.7 g/dL (11.0-16.0); LYMPH # 1.8 K/uL (1.0-4.3); LYMPH % 55.9 % (20.0-40.0); MEAN CELL VOLUME 83.3 fL (81.0-99.0); MEAN CORPUSCULAR HEMOGLOBIN 27.5 pg (27.0-31.0); MEAN PLATELET VOLUME 8.5 fL (7.2-11.7); MONO # 0.1 K/uL (0.0-0.8); MONO % 4.5 % (0.0-10.0); NEUT # 1.3 K/uL (1.8-7.0); NEUT % 38.9 % (50.0-75.0); NRBC % 0.2 % (0.0-2.0); RBC 3.88 Mil/uL (3.80-5.20); RED CELL DISTRIBUTION WIDTH 16.2 % (11.5-14.5); WHITE BLOOD COUNT 3.3 K/uL (4.8-10.8)
[2019-01-08 07:16] LABS: ALB/GLOB RATIO 1.2 (1.0-2.1); ALBUMIN 3.5 g/dL (3.5-5.0); ALT/SGPT 105 U/L (9-52); AST/SGOT 43 U/L (14-36); BLOOD UREA NITROGEN 6 mg/dL (7-17); CALCIUM 8.5 mg/dl (8.6-10.4); GFR NON-AFRICAN AMERICAN > 60
[2019-01-08 07:46] LABS: FOLATE 16.1 ng/mL
[2019-01-08] MEDS: (Novolin R) Insulin Human Regular 100 units/ml vial SC SCH ×4 (08:31→21:24)
--- NOTE | 2019-01-08 09:22 | CP.PCM.PN ---
Subjective - Date & Time of Evaluation Date of Evaluation: 01/08/19 Time of Evaluation: 09:20 - Subjective Subjective: PGY1 Medicine Progress Note for Dr. Leon Patient seen and evaluated at bedside this morning. No acute events overnight. No new complaints. Patient able to get out of bed to chair. Patient is tolerating her diet. Patient endorses BM s/p fleet enema yesterday. Patient otherwise denies epistaxis, bleeding of gums, rash, hematemesis, hematuria, headache, chest pain, shortness of breath, nausea, vomiting, diarrhea, dysuria, and/or rash. Objective - Vital Signs/Intake and Output Vital Signs (last 24 hours): Temp Pulse Resp BP Pulse Ox 99.1 F 99 H 20 119/82 95 01/08/19 07:27 01/08/19 07:27 01/08/19 07:27 01/08/19 07:27 01/08/19 07:27 Intake and Output: 01/08/19 01/08/19 06:59 18:59 Intake Total 2620 Balance 2620 - Medications Medications: Current Medications Al Hydrox/Mg Hydrox/Simethicone (Maalox 30 Ml) 30 ml PO BID PRN PRN Reason: Indigestion / Heartburn Last Admin: 01/06/19 17:09 Dose: 30 ml Docusate Sodium (Colace) 100 mg PO TID [facility] Last Admin: 01/07/19 17:36 Dose: 100 mg Hydrochlorothiazide (Microzide) 12.5 mg PO DAILY [facility] Last Admin: 01/07/19 09:32 Dose: 12.5 mg Sodium Chloride (Sodium Chloride 0.9%) 1,000 mls @ 130 mls/hr IV .Q7H42M [facility] Last Admin: 01/08/19 09:15 Dose: 130 mls/hr Ciprofloxacin (Cipro 400mg/200ml Dsw) 400 mg in 200 mls @ 133 mls/hr IVPB Q12H [facility]; Protocol Last Admin: 01/08/19 02:44 Dose: 133 mls/hr Insulin Human Regular (Novolin R) 0 unit SC [facility]; Protocol Last Admin: 01/08/19 08:31 Dose: 4 units Metoclopramide HCl (Reglan) 10 mg IVP [facility] Last Admin: 01/08/19 08:31 Dose: 10 mg Morphine Sulfate (Morphine) 1 mg IVP Q6 PRN PRN Reason: Pain, moderate (4-7) Last Admin: 01/07/19 19:20 Dose: 1 mg Polyethylene Glycol (Miralax) 17 gm PO BID [facility] Last Admin: 01/07/19 17:35 Dose: 17 gm Tramadol HCl (Ultram) 50 mg PO TID PRN PRN Reason: Pain, severe (8-10) Last Admin: 01/06/19 14:58 Dose: 50 mg - Labs Labs: 01/08/19 06:17 01/08/19 06:17 PT 13.5 SECONDS (9.7-12.2) H 01/07/19 08:40 INR 1.2 01/07/19 08:40 APTT 38.0 SECONDS (21-34) H 01/07/19 08:40 - Additional Findings Additional findings: - Constitutional Appears: Non-toxic, No Acute Distress, Chronically Ill - Head Exam Head Exam: ATRAUMATIC, NORMAL INSPECTION, NORMOCEPHALIC - Eye Exam Eye Exam: EOMI, Normal appearance, PERRL. absent: Scleral icterus Pupil Exam: NORMAL ACCOMODATION - ENT Exam ENT Exam: Mucous Membranes Moist, Normal Exam Additional comments: no petechiae observed in oral mucosa, gums, and/or tongue - Neck Exam Neck Exam: Full ROM, Normal Inspection - Respiratory Exam Respiratory Exam: Clear to Ausculation Bilateral, NORMAL BREATHING PATTERN - Cardiovascular Exam Cardiovascular Exam: REGULAR RHYTHM, +S1, +S2 - GI/Abdominal Exam GI & Abdominal Exam: Soft, Normal Bowel Sounds - Extremities Exam Extremities Exam: Full ROM, Normal Capillary Refill, Normal Inspection Additional comments: no rash, no petechiae - Back Exam Back Exam: NORMAL INSPECTION. absent: rash noted - Neurological Exam Neurological Exam: Alert, Awake, CN II-XII Intact, Oriented x3 - Psychiatric Exam Psychiatric exam: Normal Affect, Normal Mood - Skin Skin Exam: Dry, Intact, Normal Color, Warm. absent: Petechiae, Rash Assessment and Plan - Assessment and Plan (Free Text) Assessment: 58 year old female with no significant past medical history is admitted for intractable abd pain. Abd US in ED showed echogenic liver which may be seen in hepatic parenchymal disease or fatty infiltrate; cholecystectomy. Abd CT showed diverticulosis (no diverticulitis); moderate constipation; dilated CBD (about 10 mm); 4 mm distal left ureteral calculus. On 01/05, Patient had fever, miller cultures obtained, antibiotics were started, and Motrin was given for fever. Acute Transaminitis - LFTs trending down today, monitor - AlkPhos uptrending - CT Abd: 10mm CBD - MRCP: 11cm dilatation, eulogioley benign, no stone, s/p cholecystectomy - Dr Virgil King Consulted dilated CBD most likely benign finding related to post cholecystectomy dilation - no evidence of stone, mass causing obstruction on MRCP or US no surgical intervention at this time, rec GI f/u - GI consulted (Dr. Nails) - F/U Autoimmune work-up - Monitor CMP Intractable abdominal pain - Normal lipase (133), t. Bili (0.2) and alk phos (112) - Hepatitis panel negative; GC/Chlamydia negative - GI, Dr. Mahan: f/u recs - HHD - Febrile --> Motrin 400 stat - Zosyn 3.375 q8 IVPB started 01/05 (DISCONTINUED on 01/06) - Avoid tylenol - Active Pt cooling if needed - Blood / Urine cultures obtained - Morphine 1 mg q6 prn DC'd - Tramadol 50 TID - Zofran q6 prn for nausea - Colace 100 TID - Will hold oral hypoglycemic agent Pancytopenia unknown etiology - Platelet drop from 101 01/06--> 47 01/07 - Heme-Onc consulted (Dr. Moss); recommendations appreciated - HIV, Hep panel (negative except for hep A AB) - Retic count, B12, Folate, Ferritin, FOBT - THIAGO negative - anti-smooth muscle negative - Febrile - ID consulted (Dr. Villarreal); recommendations appreciated - Rule-out HIT - F/U HIT antibody - Lovenox discontinued - Zosyn discontinued - F/U Heparin - platelet antibody - Peripheral smear: tear drop cells, helmet cells, neutropenia with L shift and rare blasts recommend work-up for MDS as out-patient. If pancytopenia persists, then recommended for outpatient bone marrow biopsy - Manual platelet count: 47 - PT and PTT: 13.5 and 38 respectively - No signs of active bleeding at this time - Monitor CBC UTI - 01/07 Urine culture: + Enterococcus Faecalis - Continue Cipro IVPB x1 dose administered - ID consulted (Dr. Villarreal); recommendations appreciated - Serology labs ordered; f/u DM - Will hold oral hypoglycemic agents - ISS - increased to high - Accu checks ACHS - hypoglycemic protocol - HgbA1c 9.8 HTN - Continue home med lisinopri/HCTZ Prophylaxis - Protonix 40 qd - discontinued due to thrombocytopenia - SCDs - lovenox - discontinued due to thrombocytopenia Patient seen and case discussed with Dr. Edward Field PGY1
[2019-01-08 10:39] LABS: INTRACELLULAR PARASITE NEGATIVE (NEGATIVE)
[2019-01-08] MEDS: POLYETHYLENE GLYCOL 3350 17 GM/Dose PACKET PO SCH ×2 (11:00→17:07)
--- NOTE | 2019-01-08 15:59 | CP.PCM.CON ---
History of Present Illness - History of Present Illness History of Present Illness: 58 yo female admitted with RUQ pain and fever Developed pancytopenia while here Seen by hematology workup in progress all cultures neg thus far except non VRE enterococcus in urine 58 year old female with past medical history of DM, HTN, and cholecystectomy presented to hospital for RUQ abdominal pain. Patient was admitted to [facility] [place] in 12/23-12/25 for similar symptoms. At that time, pt states CT scan and blood work were unremarkable and she was treated for UTI. She was d/herb with 5 days of PO ABx. Patient completed course of Abx and her urinary symptoms improved. However, RUQ pain was not relieved. PMHx: DM HTN Sx: Cholecystecomy 20 yrs ago. Colonoscopy 2017 with "pre-cancerous polyps" removed (repeat rec in 2019). EGD in 2017 Social: Denies tobacco, ETOH or drug use Review of Systems - Review of Systems All systems: reviewed and no additional remarkable complaints except - Constitutional Constitutional: As Per HPI - EENT Eyes: absent: As Per HPI, Blind Spots, Blurred Vision, Change in Vision, Decreased Night Vision, Diplopia, Discharge, Dry Eye, Exophthalmos, Floaters, Irritation, Itchy Eyes, Loss of Peripheral Vision, Pain, Photophobia, Requires Corrective Lenses, Sees Flashes, Spots in Vision, Tunnel Vision, Other Visual Disturbances, Loss of Vision, Other Ears: absent: As Per HPI, Decreased Hearing, Ear Discharge, Ear Pain, Tinnitus, Abnormal Hearing, Disequilibrium, Dizziness, Other Nose/Mouth/Throat: absent: As Per HPI, Epistaxis, Nasal Congestion, Nasal Discharge, Nasal Obstruction, Nasal Trauma, Nose Pain, Post Nasal Drip, Sinus Pain, Sinus Pressure, Bleeding Gums, Change in Voice, Dental Pain, Dry Mouth, Dysphagia, Halitosis, Hoarsness, Lip Swelling, Mouth Lesions, Mouth Pain, Odynophagia, Sore Throat, Throat Swelling, Tongue Swelling, Facial Pain, Neck Pain, Neck Mass, Other - Breasts Breasts: absent: As Per HPI, Change in Shape, Mass, Pain, Nipple Discharge, Nipple Inversion, Skin Changes, Swelling, Other - Cardiovascular Cardiovascular: absent: As Per HPI, Acrocyanosis, Chest Pain, Chest Pain at Rest, Chest Pain with Activity, Claudication, Diaphoresis, Dyspnea, Dyspnea on Exertion, Edema, Irregular Heart Rhythm, Pain Radiating to Arm/Neck/Jaw, Leg Edema, Leg Ulcers, Lightheadedness, Orthopnea, Palpitations, Paroxysmal Nocturnal Dyspnea, Pedal Edema, Radiating Pain, Rapid Heart Rate, Slow Heart Rat e, Syncope, Other - Respiratory Respiratory: absent: As Per HPI, Cough, Dyspnea, Hemoptysis, Dyspnea on Exertion, Wheezing, Snoring, Stridor, Pain on Inspiration, Chest Congestion, Excessive Mucous Production, Change in Mucous Color, Pain with Coughing, Other - Gastrointestinal Gastrointestinal: As Per HPI, Abdominal Pain - Genitourinary Genitourinary: absent: As Per HPI, Change in Urinary Stream, Difficulty Urinating, Dysuria, Flank Pain, Hematuria, Pyuria, Nocturia, Urinary In continence, Urinary Frequency, Urinary Hesitance, Urinary Urgency, Voiding Freq/Small Amts, Freq UTI, Hx Renal/Bladder Calculi, Hx /Renal Surgery, Bladder Distension, Other - Reproductive: Female Reproductive:Female: absent: As Per HPI, Amenorrhea, Amenorrhea/ Control, Currently Menstual, Cycle <21 Days, Cycle >35 Days, Cycle Variable, Menses 1-7 Days, Menses >/= 8 Days, Menses Variable, Cycle > 4 Weeks Between, No Menses for 6 Months, Heavy Menses, Light Menses, Normal Menses, Spotting Between Cycles, S/P Hysterectomy, Menopausal, Post Menopausal, Premenarche, Abnormal Vaginal Bleeding, Dysmenorrhea, Dyspareunia, Genital Lesions, Genital Pruritis, Pelvic Pain, Prolapse Symptoms, Sexual Dysfunction, Vaginal Discharge, Vaginal Dryness, Vaginal Odor, Vaginal Pruritis, Other - Menstruation Menstruation: absent: As Per HPI, Amenorrhea, Amenorrhea/ Control, Currently Menstual, Cycle <21 Days, Cycle >35 Days, Cycle Variable, Menses 1-7 Days, Menses >/= 8 Days, Menses Variable, Cycle > 4 Weeks Between, No Menses for 6 Months, Heavy Menses, Light Menses, Normal Menses, Spotting Between Cycles, S/P Hysterectomy, Menopausal, Post Menopausal, Premenarche, Abnormal Vaginal Bleeding, Dysmenorrhea, Other - Musculoskeletal Musculoskeletal: absent: As Per HPI, Abnormal Gait, Arthralgias, Atrophy, Back Pain, Deformity, Joint Swelling, Limited Range of Motion, Loss of Height, Muscle Cramps, Muscle Weakness, Myalgias, Neck Pain, Numbness, Radiating Pain into Limb, Stiffness, Tingling, Other - Integumentary Integumentary: absent: As Per HPI, Acne, Alopecia, Bleeding Lesions, Change in Hair, Change in Nails, Change in Pigmentation, Changing Lesions, Dry Skin, Erythema, Furuncle, Hirsutism, Lesions, New Lesions, Non-Healing Lesions, Photosensitivity, Pruritus, Rash, Skin Pain, Skin Ulcer, Sores, Striae, Swelling, Unusual Bruising, Wounds, Jaundice, Other - Neurological Neurological: absent: As Per HPI, Abnormal Gait, Abnormal Hearing, Abnormal Movements, Abnormal Speech, Behavioral Changes, Burning Sensations, Confusion, Convulsions, Disequilibrium, Dizziness, Numbness, Focal Weakness, Frequent Falls, Headaches, Lack of Coordination, Loss of Vision, Memory Loss, Paresthesias, Radicular Pain, Restless Legs, Sensory Deficit, Syncope, Tingling, Tremor, Vertigo, Weakness, Other Visual Disturbances, Other - Psychiatric Psychiatric: absent: As Per HPI, Abnormal Sleep Pattern, Anhedonia, Anxiety, Auditory Hallucinations, Behavioral Changes, Change in Appetite, Change in Libido, Confusion, Depression, Difficulty Concentrating, Hallucinations, Homicidal Ideation, Hopelessness, Irritability, Memory Loss, Mood Swings, Panic Attacks, Paranoia, Suicidal Ideation, Visual Hallucinations, Tactile Hallucinations, Other - Endocrine Endocrine: As Per HPI - Hematologic/Lymphatic Hematologic: As Per HPI Past Patient History - Past Medical History & Family History Past Medical History?: Yes - Past Social History Smoking Status: Unknown If Ever Smoked - CARDIAC Hx Hypertension: Yes - ENDOCRINE/METABOLIC Hx Diabetes Mellitus Type 2: Yes - INTEGUMENTARY Hx Dermatological Problems: Yes (mass on back) - MUSCULOSKELETAL/RHEUMATOLOGICAL Hx Falls: No - PSYCHIATRIC Hx Substance Use: No - SURGICAL HISTORY Hx Cholecystectomy: Yes - ANESTHESIA Hx Anesthesia: Yes Hx Anesthesia Reactions: No Hx Malignant Hyperthermia: No Meds Allergies/Adverse Reactions: Allergies Allergy/AdvReac Type Severity Reaction Status Date / Time No Known Allergies Allergy Verified 01/02/19 07:14 - Medications Medications: Current Medications Al Hydrox/Mg Hydrox/Simethicone (Maalox 30 Ml) 30 ml PO BID PRN PRN Reason: Indigestion / Heartburn Last Admin: 01/06/19 17:09 Dose: 30 ml Docusate Sodium (Colace) 100 mg PO TID [facility] Last Admin: 01/08/19 15:00 Dose: 100 mg Hydrochlorothiazide (Microzide) 12.5 mg PO DAILY [facility] Last Admin: 01/08/19 11:00 Dose: 12.5 mg Sodium Chloride (Sodium Chloride 0.9%) 1,000 mls @ 130 mls/hr IV .Q7H42M [facility] Last Admin: 01/08/19 15:15 Dose: Not Given Ciprofloxacin (Cipro 400mg/200ml Dsw) 400 mg in 200 mls @ 133 mls/hr IVPB Q12H [facility]; Protocol Last Admin: 01/08/19 15:10 Dose: 133 mls/hr Insulin Human Regular (Novolin R) 0 unit SC [facility]; Protocol Last Admin: 01/08/19 12:48 Dose: 8 units Metoclopramide HCl (Reglan) 10 mg IVP [facility] Last Admin: 01/08/19 12:49 Dose: 10 mg Morphine Sulfate (Morphine) 1 mg IVP Q6 PRN PRN Reason: Pain, moderate (4-7) Last Admin: 01/07/19 19:20 Dose: 1 mg Polyethylene Glycol (Miralax) 17 gm PO BID [facility] Last Admin: 01/08/19 11:00 Dose: 17 gm Tramadol HCl (Ultram) 50 mg PO TID PRN PRN Reason: Pain, severe (8-10) Last Admin: 01/06/19 14:58 Dose: 50 mg Physical Exam - Constitutional Appears: Non-toxic, No Acute Distress, Chronically Ill - Head Exam Head Exam: ATRAUMATIC, NORMAL INSPECTION, NORMOCEPHALIC - Eye Exam Eye Exam: EOMI, Normal appearance, PERRL Pupil Exam: NORMAL ACCOMODATION, PERRL - ENT Exam ENT Exam: Mucous Membranes Moist, Normal Exam - Neck Exam Neck exam: Positive for: Normal Inspection - Respiratory Exam Respiratory Exam: Clear to Auscultation Bilateral, NORMAL BREATHING PATTERN - Cardiovascular Exam Cardiovascular Exam: REGULAR RHYTHM - GI/Abdominal Exam GI & Abdominal Exam: Normal Bowel Sounds, Soft. absent: Tenderness - Rectal Exam Rectal Exam: Deferred - Extremities Exam Extremities exam: Positive for: normal inspection - Back Exam Back exam: NORMAL INSPECTION - Neurological Exam Neurological exam: Alert, CN II-XII Intact, Normal Gait, Oriented x3, Reflexes Normal - Psychiatric Exam Psychiatric exam: Normal Affect, Normal Mood - Skin Skin Exam: Dry, Intact, Normal Color, Warm Results - Vital Signs Recent Vital Signs: Last Vital Signs Temp 99.1 F 01/08/19 07:27 Pulse 99 H 01/08/19 07:27 Resp 20 01/08/19 07:27 BP 119/82 01/08/19 07:27 Pulse Ox 95 01/08/19 07:27 - Labs Result Diagrams: 01/08/19 06:17 01/08/19 06:17 Labs: Laboratory Results - last 24 hr 01/04/19 01/05/19 01/07/19 06:56 13:53 16:25 WBC RBC Hgb Hct MCV MCH MCHC RDW Plt Count MPV Neut % (Auto) Lymph % (Auto) [place] % (Auto) Eos % (Auto) Baso % (Auto) Neut # (Auto) Lymph # (Auto) [place] # (Auto) Eos # (Auto) Baso # (Auto) Retic Count Sodium Potassium Chloride Carbon Dioxide Anion Gap BUN Creatinine Est GFR ( Amer) Est GFR (Non-Af Amer) POC Glucose (mg/dL) 315 H Random Glucose Lactic Acid Calcium Ferritin Total Bilirubin AST ALT Alkaline Phosphatase 206 H Total Protein Albumin Globulin Albumin/Globulin Ratio Vitamin B12 Folate Procalcitonin IgG 1209 IgA 344 IgM 71 Serum Immunofixation Not detected THIAGO Screen Positive H THIAGO Titer 1:40 H THIAGO Pattern Nucleolar H Blood Parasites Smear 01/07/19 01/07/19 01/08/19 21:06 23:38 06:17 WBC 3.3 L RBC 3.88 Hgb 10.7 L Hct 32.3 L MCV 83.3 MCH 27.5 MCHC 33.0 RDW 16.2 H Plt Count 46 L MPV 8.5 Neut % (Auto) 38.9 L Lymph % (Auto) 55.9 H [place] % (Auto) 4.5 Eos % (Auto) 0.3 Baso % (Auto) 0.4 Neut # (Auto) 1.3 L Lymph # (Auto) 1.8 [place] # (Auto) 0.1 Eos # (Auto) 0.0 Baso # (Auto) 0.0 Retic Count Sodium Potassium Chloride Carbon Dioxide Anion Gap BUN Creatinine Est GFR ( Amer) Est GFR (Non-Af Amer) POC Glucose (mg/dL) 243 H Random Glucose Lactic Acid 1.3 Calcium Ferritin Total Bilirubin AST ALT Alkaline Phosphatase Total Protein Albumin Globulin Albumin/Globulin Ratio Vitamin B12 Folate Procalcitonin IgG IgA IgM Serum Immunofixation THIAGO Screen THIAGO Titer THIAGO Pattern Blood Parasites Smear 01/08/19 01/08/19 01/08/19 06:17 06:17 06:17 WBC RBC Hgb Hct MCV MCH MCHC RDW Plt Count MPV Neut % (Auto) Lymph % (Auto) [place] % (Auto) Eos % (Auto) Baso % (Auto) Neut # (Auto) Lymph # (Auto) [place] # (Auto) Eos # (Auto) Baso # (Auto) Retic Count 0.5 Sodium 130 L Potassium 4.1 Chloride 95 L Carbon Dioxide 30 Anion Gap 9 L BUN 6 L Creatinine 0.6 L Est GFR ( Amer) > 60 Est GFR (Non-Af Amer) > 60 POC Glucose (mg/dL) Random Glucose 253 H Lactic Acid Calcium 8.5 L Ferritin 1280.0 Total Bilirubin 0.5 AST 43 H D ALT 105 H D Alkaline Phosphatase 205 H Total Protein 6.3 Albumin 3.5 Globulin 2.8 Albumin/Globulin Ratio 1.2 Vitamin B12 230 L Folate 16.1 Procalcitonin 0.49 IgG IgA IgM Serum Immunofixation THIAGO Screen THIAGO Titer THIAGO Pattern Blood Parasites Smear Negative 01/08/19 01/08/19 07:10 11:12 WBC RBC Hgb Hct MCV MCH MCHC RDW Plt Count MPV Neut % (Auto) Lymph % (Auto) [place] % (Auto) Eos % (Auto) Baso % (Auto) Neut # (Auto) Lymph # (Auto) [place] # (Auto) Eos # (Auto) Baso # (Auto) Retic Count Sodium Potassium Chloride Carbon Dioxide Anion Gap BUN Creatinine Est GFR ( Amer) Est GFR (Non-Af Amer) POC Glucose (mg/dL) 233 H 318 H Random Glucose Lactic Acid Calcium Ferritin Total Bilirubin AST ALT Alkaline Phosphatase Total Protein Albumin Globulin Albumin/Globulin Ratio Vitamin B12 Folate Procalcitonin IgG IgA IgM Serum Immunofixation THIAGO Screen THIAGO Titer THIAGO Pattern Blood Parasites Smear Assessment & Plan (1) Intractable abdominal pain Status: Acute (2) Pancytopenia Status: Acute - Assessment and Plan (Free Text) Assessment: 58 yo diabetic female is admitted with Abdominal pain and fever Now hs pancytopenia etiologies considered include infectious, autoimmune, neoplastic work up thus far negative for malignancy all cultures and serologies are negative thus far - clinical course favors viral etiology Zosyn d/c'd due to possible toxicity and currently on Cipro
--- NOTE | 2019-01-08 22:40 | CP.PCM.PN ---
Subjective - Date & Time of Evaluation Date of Evaluation: 01/08/19 Time of Evaluation: 18:00 - Subjective Subjective: Had bowel movement B12 noted low, will start supplementation Objective - Vital Signs/Intake and Output Vital Signs (last 24 hours): Temp Pulse Resp BP Pulse Ox 98.9 F 98 H 20 133/87 94 L 01/08/19 15:15 01/08/19 15:15 01/08/19 15:15 01/08/19 15:15 01/08/19 15:15 Intake and Output: 01/08/19 01/09/19 18:59 06:59 Intake Total 1445 Balance 1445 - Medications Medications: Current Medications Al Hydrox/Mg Hydrox/Simethicone (Maalox 30 Ml) 30 ml PO BID PRN PRN Reason: Indigestion / Heartburn Last Admin: 01/06/19 17:09 Dose: 30 ml Cyanocobalamin (Vitamin B12 1000 Mcg/Ml Inj) 1,000 mcg IM DAILY [facility] Docusate Sodium (Colace) 100 mg PO TID [facility] Last Admin: 01/08/19 17:05 Dose: 100 mg Hydrochlorothiazide (Microzide) 12.5 mg PO DAILY [facility] Last Admin: 01/08/19 11:00 Dose: 12.5 mg Sodium Chloride (Sodium Chloride 0.9%) 1,000 mls @ 130 mls/hr IV .Q7H42M [facility] Last Admin: 01/08/19 15:15 Dose: Not Given Ciprofloxacin (Cipro 400mg/200ml Dsw) 400 mg in 200 mls @ 133 mls/hr IVPB Q12H [facility]; Protocol Last Admin: 01/08/19 15:10 Dose: 133 mls/hr Insulin Human Regular (Novolin R) 0 unit SC [facility]; Protocol Last Admin: 01/08/19 21:24 Dose: Not Given Metoclopramide HCl (Reglan) 10 mg IVP [facility] Last Admin: 01/08/19 21:23 Dose: 10 mg Morphine Sulfate (Morphine) 1 mg IVP Q6 PRN PRN Reason: Pain, moderate (4-7) Last Admin: 01/08/19 20:35 Dose: 1 mg Polyethylene Glycol (Miralax) 17 gm PO BID [facility] Last Admin: 01/08/19 17:07 Dose: 17 gm Tramadol HCl (Ultram) 50 mg PO TID PRN PRN Reason: Pain, severe (8-10) Last Admin: 01/06/19 14:58 Dose: 50 mg - Labs Labs: 01/08/19 06:17 01/08/19 06:17 PT 13.5 SECONDS (9.7-12.2) H 01/07/19 08:40 INR 1.2 01/07/19 08:40 APTT 38.0 SECONDS (21-34) H 01/07/19 08:40 - Head Exam Head Exam: ATRAUMATIC - Eye Exam Eye Exam: Normal appearance - ENT Exam ENT Exam: Mucous Membranes Dry - Respiratory Exam Respiratory Exam: NORMAL BREATHING PATTERN - Cardiovascular Exam Cardiovascular Exam: +S1, +S2 - GI/Abdominal Exam GI & Abdominal Exam: Normal Bowel Sounds Assessment and Plan (1) Pancytopenia Assessment & Plan: low b12 noted; will supplement will need outpatient bone marrow if counts dont improve Status: Acute
[2019-01-09] MEDS: Ciprofloxacin 400mg/200ml D5W 400 MG/200 ML BAG IVPB SCH ×2 (02:31→15:13)
[2019-01-09 07:42] LABS: BASO % 0.5 % (0.0-2.0); EOS % 0.6 % (0.0-4.0); HEMOGLOBIN 10.7 g/dL (11.0-16.0); LYMPH # 2.3 K/uL (1.0-4.3); LYMPH % 60.9 % (20.0-40.0); MEAN CELL VOLUME 84.1 fL (81.0-99.0); MEAN CORPUSCULAR HEMOGLOBIN 28.2 pg (27.0-31.0); MEAN CORPUSCULAR HGB CONC 33.5 g/dL (33.0-37.0); MEAN PLATELET VOLUME 9.3 fL (7.2-11.7); MONO # 0.1 K/uL (0.0-0.8); MONO % 3.9 % (0.0-10.0); NEUT # 1.3 K/uL (1.8-7.0); NEUT % 34.1 % (50.0-75.0); NRBC % 0.3 % (0.0-2.0); RBC 3.8 Mil/uL (3.80-5.20); WHITE BLOOD COUNT 3.8 K/uL (4.8-10.8)
[2019-01-09 08:15] LABS: ALB/GLOB RATIO 1.2 (1.0-2.1); ALBUMIN 3.7 g/dL (3.5-5.0); ALT/SGPT 89 U/L (9-52); AST/SGOT 31 U/L (14-36); BLOOD UREA NITROGEN 6 mg/dL (7-17); GFR NON-AFRICAN AMERICAN > 60
[2019-01-09] MEDS: (Novolin R) Insulin Human Regular 100 units/ml vial SC SCH ×4 (08:30→22:12)
[2019-01-09] MEDS ORDERED: Pneumococcal 23-Valent Vaccine IM ONE (10:00)
[2019-01-09] MEDS: POLYETHYLENE GLYCOL 3350 17 GM/Dose PACKET PO SCH ×2 (10:33→17:08)
--- NOTE | 2019-01-09 16:43 | CP.PCM.PN ---
Subjective - Date & Time of Evaluation Date of Evaluation: 01/09/19 Time of Evaluation: 16:36 - Subjective Subjective: Medicine Progress Note for Dr. Leon's service s/e at bedside reports chronic right upper quadrant pain Denies fevers, chills, chest pain, sob, n/v, constipation or diarrhea, and dysuria. Objective - Vital Signs/Intake and Output Vital Signs (last 24 hours): Temp Pulse Resp BP Pulse Ox 99.8 F H 100 H 20 120/71 98 01/09/19 16:00 01/09/19 16:00 01/09/19 16:00 01/09/19 16:00 01/09/19 16:00 Intake and Output: 01/09/19 01/09/19 06:59 18:59 Intake Total 1160 Balance 1160 - Medications Medications: Current Medications Al Hydrox/Mg Hydrox/Simethicone (Maalox 30 Ml) 30 ml PO BID PRN PRN Reason: Indigestion / Heartburn Last Admin: 01/06/19 17:09 Dose: 30 ml Cyanocobalamin (Vitamin B12 1000 Mcg/Ml Inj) 1,000 mcg IM DAILY COUNTS INCLUDE 234 BEDS AT THE [facility] Last Admin: 01/09/19 10:33 Dose: 1,000 mcg Docusate Sodium (Colace) 100 mg PO TID COUNTS INCLUDE 234 BEDS AT THE [facility] Last Admin: 01/09/19 15:00 Dose: 100 mg Hydrochlorothiazide (Microzide) 12.5 mg PO DAILY COUNTS INCLUDE 234 BEDS AT THE [facility] Last Admin: 01/09/19 10:33 Dose: 12.5 mg Ciprofloxacin (Cipro 400mg/200ml Dsw) 400 mg in 200 mls @ 133 mls/hr IVPB Q12H COUNTS INCLUDE 234 BEDS AT THE [facility]; Protocol Last Admin: 01/09/19 15:13 Dose: 133 mls/hr Insulin Human Regular (Novolin R) 0 unit SC ACHS COUNTS INCLUDE 234 BEDS AT THE [facility]; Protocol Last Admin: 01/09/19 12:31 Dose: 12 units Metoclopramide HCl (Reglan) 10 mg IVP ACHS COUNTS INCLUDE 234 BEDS AT THE [facility] Last Admin: 01/09/19 12:31 Dose: 10 mg Morphine Sulfate (Morphine) 1 mg IVP Q6 PRN PRN Reason: Pain, moderate (4-7) Last Admin: 01/08/19 20:35 Dose: 1 mg Polyethylene Glycol (Miralax) 17 gm PO BID COUNTS INCLUDE 234 BEDS AT THE [facility] Last Admin: 04/25/19 10:33 Dose: 17 gm Tramadol HCl (Ultram) 50 mg PO TID PRN PRN Reason: Pain, severe (8-10) Last Admin: 01/06/19 14:58 Dose: 50 mg - Labs Labs: 01/09/19 07:31 01/09/19 07:31 PT 13.5 SECONDS (9.7-12.2) H 01/07/19 08:40 INR 1.2 01/07/19 08:40 APTT 38.0 SECONDS (21-34) H 01/07/19 08:40 - Additional Findings Additional findings: - Constitutional Appears: Non-toxic, No Acute Distress, Chronically Ill - Head Exam Head Exam: ATRAUMATIC, NORMAL INSPECTION, NORMOCEPHALIC - Eye Exam Eye Exam: EOMI, Normal appearance, PERRL. absent: Scleral icterus Pupil Exam: NORMAL ACCOMODATION - ENT Exam ENT Exam: Mucous Membranes Moist, Normal Exam Additional comments: no petechiae observed in oral mucosa, gums, and/or tongue - Neck Exam Neck Exam: Full ROM, Normal Inspection - Respiratory Exam Respiratory Exam: Clear to Ausculation Bilateral, NORMAL BREATHING PATTERN - Cardiovascular Exam Cardiovascular Exam: REGULAR RHYTHM, +S1, +S2 - GI/Abdominal Exam GI & Abdominal Exam: Soft, Normal Bowel Sounds - Extremities Exam Extremities Exam: Full ROM, Normal Capillary Refill, Normal Inspection Additional comments: no rash, no petechiae - Back Exam Back Exam: NORMAL INSPECTION. absent: rash noted - Neurological Exam Neurological Exam: Alert, Awake, CN II-XII Intact, Oriented x3 - Psychiatric Exam Psychiatric exam: Normal Affect, Normal Mood - Skin Skin Exam: Dry, Intact, Normal Color, Warm. absent: Petechiae, Rash Assessment and Plan - Assessment and Plan (Free Text) Assessment: 58 year old female with no significant past medical history is admitted for intractable abd pain. Abd US in ED showed echogenic liver which may be seen in hepatic parenchymal disease or fatty infiltrate; cholecystectomy. Abd CT showed diverticulosis (no diverticulitis); moderate constipation; dilated CBD (about 10 mm); 4 mm distal left ureteral calculus. On 01/05, Patient had fever, miller cultures obtained, antibiotics were started, and Motrin was given for fever. Acute Transaminitis - LFTs trending down today, monitor - AlkPhos uptrending - CT Abd: 10mm CBD - MRCP: 11cm sivakumar, jeannette benign, no stone, s/p cholecystectomy - Dr Virgil King Consulted dilated CBD most likely benign finding related to post cholecystectomy dilation - no evidence of stone, mass causing obstruction on MRCP or US no surgical intervention at this time, rec GI f/u - GI consulted (Negrito) - negative for anti-mitochondiral AB; +THIAGO - Monitor CMP RUQ abdominal pain - Normal lipase (133), t. Bili (0.2) and alk phos (112) - Hepatitis panel negative; GC/Chlamydia negative - GI, Dr. Mahan: f/u recs - HHD - Febrile --> Motrin 400 stat - Zosyn 3.375 q8 IVPB started 01/05 (DISCONTINUED on 01/06) - Avoid tylenol - Active Pt cooling if needed - Blood / Urine cultures obtained - Morphine 1 mg q6 prn DC'd - Tramadol 50 TID - Zofran q6 prn for nausea - Colace 100 TID - Will hold oral hypoglycemic agent Pancytopenia unknown etiology - Heme-Onc consulted (Dr. Moss); recommendations appreciated - HIV, Hep panel (negative except for hep A AB) - Retic count, B12, Folate, Ferritin, FOBT - THIAGO negative - anti-smooth muscle negative - B12 low, will replete and check blood work at that time, may need outpatient BM biopsy - Febrile - ID consulted (Dr. Villarreal); recommendations appreciated- pending further studies for infectious causes - HIT ab negative - Lovenox discontinued - Zosyn discontinued - Peripheral smear: tear drop cells, helmet cells, neutropenia with L shift and rare blasts recommend work-up for MDS as out-patient. If pancytopenia persists, then recommended for outpatient bone marrow biopsy - Manual platelet count: 47 - PT and PTT: 13.5 and 38 respectively - No signs of active bleeding at this time - Monitor CBC UTI - 01/07 Urine culture: + Enterococcus Faecalis - Continue Cipro IVPB x1 dose administered - ID consulted (Dr. Villarreal); recommendations appreciated - Serology labs ordered; f/u DM - Will hold oral hypoglycemic agents - ISS - increased to high - Accu checks ACHS - hypoglycemic protocol - HgbA1c 9.8 HTN - Continue home med lisinopri/HCTZ 06/28.5 Prophylaxis - Protonix 40 qd - discontinued due to thrombocytopenia - SCDs - lovenox - discontinued due to thrombocytopenia Patient seen and case discussed with Dr. Edward Jenkins PGY1
[2019-01-09] MEDS: Aluminum Hydroxide/Magnesium Hydroxide Susp (30 mL) PO PRN (17:09)
[2019-01-10] MEDS: Ciprofloxacin 400mg/200ml D5W 400 MG/200 ML BAG IVPB SCH (03:27)
--- NOTE | 2019-01-10 07:07 | CP.PCM.PN ---
Subjective - Date & Time of Evaluation Date of Evaluation: 01/10/19 Time of Evaluation: 07:06 Objective - Vital Signs/Intake and Output Vital Signs (last 24 hours): Temp Pulse Resp BP Pulse Ox 97.9 F 98 H 20 115/75 94 L 01/10/19 00:00 01/10/19 00:00 01/10/19 00:00 01/10/19 00:00 01/10/19 00:00 Intake and Output: 01/10/19 01/10/19 06:59 18:59 Intake Total 440 Balance 440 - Medications Medications: Current Medications Al Hydrox/Mg Hydrox/Simethicone (Maalox 30 Ml) 30 ml PO BID PRN PRN Reason: Indigestion / Heartburn Last Admin: 01/09/19 17:09 Dose: 30 ml Cyanocobalamin (Vitamin B12 1000 Mcg/Ml Inj) 1,000 mcg IM DAILY [facility] Last Admin: 01/09/19 10:33 Dose: 1,000 mcg Docusate Sodium (Colace) 100 mg PO TID [facility] Last Admin: 01/09/19 17:07 Dose: 100 mg Hydrochlorothiazide (Microzide) 12.5 mg PO DAILY [facility] Last Admin: 01/09/19 10:33 Dose: 12.5 mg Ciprofloxacin (Cipro 400mg/200ml Dsw) 400 mg in 200 mls @ 133 mls/hr IVPB Q12H [facility]; Protocol Last Admin: 01/10/19 03:27 Dose: 133 mls/hr Insulin Human Regular (Novolin R) 0 unit SC [facility]; Protocol Last Admin: 01/09/19 22:12 Dose: Not Given Metoclopramide HCl (Reglan) 10 mg IVP ACHS [facility] Last Admin: 01/09/19 22:11 Dose: 10 mg Morphine Sulfate (Morphine) 1 mg IVP Q6 PRN PRN Reason: Pain, moderate (4-7) Last Admin: 01/08/19 20:35 Dose: 1 mg Polyethylene Glycol (Miralax) 17 gm PO BID [facility] Last Admin: 01/09/19 17:08 Dose: 17 gm Tramadol HCl (Ultram) 50 mg PO TID PRN PRN Reason: Pain, severe (8-10) Last Admin: 01/10/19 05:42 Dose: 50 mg - Labs Labs: 01/09/19 07:31 01/09/19 07:31 PT 13.5 SECONDS (9.7-12.2) H 01/07/19 08:40 INR 1.2 01/07/19 08:40 APTT 38.0 SECONDS (21-34) H 01/07/19 08:40
[2019-01-10] MEDS: (Novolin R) Insulin Human Regular 100 units/ml vial SC SCH ×2 (08:19→12:18)
[2019-01-10 08:23] VITALS: BP 113/77; PULSE 99; TEMP 98.3; O2SAT 95
[2019-01-10] MEDS: POLYETHYLENE GLYCOL 3350 17 GM/Dose PACKET PO SCH (09:48)
[2019-01-10 11:54] LABS: BASO % 0.8 % (0.0-2.0); EOS % 0.9 % (0.0-4.0); HEMOGLOBIN 10.8 g/dL (11.0-16.0); LYMPH # 2.1 K/uL (1.0-4.3); LYMPH % 56.3 % (20.0-40.0); MEAN CELL VOLUME 83.5 fL (81.0-99.0); MEAN CORPUSCULAR HEMOGLOBIN 28.3 pg (27.0-31.0); MEAN CORPUSCULAR HGB CONC 33.9 g/dL (33.0-37.0); MEAN PLATELET VOLUME 8.7 fL (7.2-11.7); MONO # 0.2 K/uL (0.0-0.8); MONO % 4.2 % (0.0-10.0); NEUT # 1.4 K/uL (1.8-7.0); NEUT % 37.8 % (50.0-75.0); NRBC % 0.3 % (0.0-2.0); RBC 3.8 Mil/uL (3.80-5.20); RED CELL DISTRIBUTION WIDTH 15.5 % (11.5-14.5); WHITE BLOOD COUNT 3.7 K/uL (4.8-10.8)
[2019-01-10 12:20] LABS: ALB/GLOB RATIO 1.2 (1.0-2.1); ALBUMIN 3.7 g/dL (3.5-5.0); ALT/SGPT 75 U/L (9-52); AST/SGOT 39 U/L (14-36); BLOOD UREA NITROGEN 10 mg/dL (7-17); CALCIUM 9.2 mg/dl (8.6-10.4); GFR NON-AFRICAN AMERICAN > 60
--- NOTE | 2019-01-10 12:57 | CP.PCM.DIS ---
Provider - Provider Date of Admission: 01/06/19 15:18 Attending physician: Tariq Leon Jr, MD Primary care physician: Dr. Leon Consults: 01/02/19 18:25 Physician Consult Routine Comment: Consulting Provider: Maribel Mahan Consulting Physician: Maribel Mahan Reason for Consult: RUQ abd pain 01/04/19 11:11 General Surgery Consult Routine Comment: Consulting Provider: Elmer Herman Jr. Consulting Physician: Elmer Herman Jr. Reason for Consult: hx of cholecystectomy, LFT acute rise 01/07/19 07:39 Hematology Oncology Consult Routine Comment: Consulting Provider: Alvarez Moss Consulting Physician: Alvarez Moss Reason for Consult: Please evaluate for Thrombocytopenia. Patient febrile. 01/07/19 13:30 Infectious Disease Consult Routine Comment: Consulting Provider: Jordan Villarreal Consulting Physician: Jordan Villarreal Reason for Consult: + enterococcus faecalis in urine / fevers Time Spent in preparation of Discharge (in minutes): 45 Diagnosis - Discharge Diagnosis (1) Intractable abdominal pain Status: Acute Priority: Medium (2) Pancytopenia Status: Acute Priority: Medium Hospital Course - Lab Results Lab Results: Micro Results 01/05/19 19:52 Blood Blood Culture - Preliminary NO GROWTH AFTER 4 DAYS 01/05/19 19:52 Blood Blood Culture - Preliminary NO GROWTH AFTER 4 DAYS 01/07/19 17:30 Blood Blood Culture - Preliminary NO GROWTH AFTER 48 HOURS 01/07/19 17:30 Blood Blood Culture - Preliminary NO GROWTH AFTER 48 HOURS 01/08/19 20:51 Stool Ova and Parasite Concentrate Exam - Final 01/05/19 19:52 Urine,Clean Catch Urine Culture - Final Enterococcus Faecalis Most Recent Lab Values WBC 3.7 K/uL (4.8-10.8) L 01/10/19 11:41 RBC 3.80 Mil/uL (3.80-5.20) 01/10/19 11:41 Hgb 10.8 g/dL (11.0-16.0) L 01/10/19 11:41 Hct 31.7 % (34.0-47.0) L 01/10/19 11:41 MCV 83.5 fL (81.0-99.0) 01/10/19 11:41 MCH 28.3 pg (27.0-31.0) 01/10/19 11:41 MCHC 33.9 g/dL (33.0-37.0) 01/10/19 11:41 RDW 15.5 % (11.5-14.5) H 01/10/19 11:41 Plt Count 42 K/uL (130-400) L 01/10/19 11:41 Manual Plt Count 47 K/uL (130-400) L 01/07/19 07:44 MPV 8.7 fL (7.2-11.7) 01/10/19 11:41 Neut % (Auto) 37.8 % (50.0-75.0) L 01/10/19 11:41 Lymph % (Auto) 56.3 % (20.0-40.0) H 01/10/19 11:41 [place] % (Auto) 4.2 % (0.0-10.0) 01/10/19 11:41 Eos % (Auto) 0.9 % (0.0-4.0) 01/10/19 11:41 Baso % (Auto) 0.8 % (0.0-2.0) 01/10/19 11:41 Neut # (Auto) 1.4 K/uL (1.8-7.0) L 01/10/19 11:41 Lymph # (Auto) 2.1 K/uL (1.0-4.3) 01/10/19 11:41 Austin # (Auto) 0.2 K/uL (0.0-0.8) 01/10/19 11:41 Eos # (Auto) 0.0 K/uL (0.0-0.7) 01/10/19 11:41 Baso # (Auto) 0.0 K/uL (0.0-0.2) 01/10/19 11:41 Retic Count 0.5 % (0.5-1.5) 01/08/19 06:17 PT 13.5 SECONDS (9.7-12.2) H 01/07/19 08:40 INR 1.2 01/07/19 08:40 APTT 38.0 SECONDS (21-34) H 01/07/19 08:40 Sodium 133 mmol/L (132-148) 01/10/19 11:41 Potassium 4.5 mmol/L (3.6-5.2) 01/10/19 11:41 Chloride 91 mmol/L (98-107) L 01/10/19 11:41 Carbon Dioxide 30 mmol/L (22-30) 01/10/19 11:41 Anion Gap 16 (10-20) 01/10/19 11:41 BUN 10 mg/dL (7-17) 01/10/19 11:41 Creatinine 0.6 mg/dL (0.7-1.2) L 01/10/19 11:41 Est GFR ( Amer) > 60 01/10/19 11:41 Est GFR (Non-Af Amer) > 60 01/10/19 11:41 POC Glucose (mg/dL) 281 mg/dL (65-110) H 01/10/19 11:22 Random Glucose 303 mg/dL (65-105) H D 01/10/19 11:41 Hemoglobin A1c 9.8 % (4.2-6.5) H D 01/03/19 08:15 Lactic Acid 1.3 mmol/L (0.7-2.1) 01/07/19 23:38 Calcium 9.2 mg/dl (8.6-10.4) 01/10/19 11:41 Phosphorus 4.4 mg/dL (2.5-4.5) 01/10/19 11:41 Magnesium 2.1 mg/dL (1.6-2.3) 01/10/19 11:41 Iron 41 ug/dL (37-170) 01/06/19 10:11 TIBC 258 ug/dL (250-450) 01/06/19 10:11 % Saturation 16 (20-55) L 01/06/19 10:11 Ferritin 1280.0 ng/mL 01/08/19 06:17 Total Bilirubin 0.4 mg/dL (0.2-1.3) 01/10/19 11:41 GGT 153 U/L (8-78) H 01/06/19 06:47 AST 39 U/L (14-36) H D 01/10/19 11:41 ALT 75 U/L (9-52) H 01/10/19 11:41 Alkaline Phosphatase 187 U/L (38-126) H 01/10/19 11:41 Alk Phos Iso-Intestine 0 % (1-24) L 01/04/19 06:56 Alk Phos Iso-Bone 34 % (28-66) 01/04/19 06:56 Alk Phos Iso-Liver 66 % (25-69) 01/04/19 06:56 Alk Phos Iso-Placenta 0 % (<=0) 01/04/19 06:56 Alk Phos Iso-Renal 0 % (<=0) 01/04/19 06:56 Troponin I < 0.0120 ng/mL (0.00-0.120) 01/05/19 07:50 Total Protein 6.9 g/dL (6.3-8.3) 01/10/19 11:41 Albumin 3.7 g/dL (3.5-5.0) 01/10/19 11:41 Globulin 3.2 gm/dL (2.2-3.9) 01/10/19 11:41 Albumin/Globulin Ratio 1.2 (1.0-2.1) 01/10/19 11:41 Triglycerides 225 mg/dL (0-149) H D 01/03/19 08:15 Cholesterol 148 mg/dL (0-199) 01/03/19 08:15 LDL Cholesterol Direct 90 mg/dL (0-129) 01/03/19 08:15 HDL Cholesterol 33 mg/dL (30-70) 01/03/19 08:15 Lipase 133 U/L (23-300) 01/02/19 08:02 Vitamin B12 230 pg/mL (239-931) L 01/08/19 06:17 Folate 16.1 ng/mL 01/08/19 06:17 Procalcitonin 0.49 NG/ML (0.19-0.49) 01/08/19 06:17 TSH 3rd Generation 2.33 mIU/L (0.46-4.68) 01/06/19 10:11 Urine Color Yellow (YELLOW) 01/02/19 08:02 Urine Clarity Clear (Clear) 01/02/19 08:02 Urine pH 5.0 (5.0-8.0) 01/02/19 08:02 Ur Specific Gary 1.016 (1.003-1.030) 01/02/19 08:02 Urine Protein Negative mg/dL (NEGATIVE) 01/02/19 08:02 Urine Glucose (UA) Normal mg/dL (Normal) 01/02/19 08:02 Urine Ketones Negative mg/dL (NEGATIVE) 01/02/19 08:02 Urine Blood Negative (NEGATIVE) 01/02/19 08:02 Urine Nitrate Negative (NEGATIVE) 01/02/19 08:02 Urine Bilirubin Negative (NEGATIVE) 01/02/19 08:02 Urine Urobilinogen Normal mg/dL (0.2-1.0) 01/02/19 08:02 Ur Leukocyte Esterase Neg Birdie/uL (Negative) 01/02/19 08:02 Urine WBC (Auto) < 1 /hpf (0-5) 01/02/19 08:02 Urine RBC (Auto) 1 /hpf (0-3) 01/02/19 08:02 Ur Squamous Epith Cells 1 /hpf (0-5) 01/02/19 08:02 Stool Occult Blood Negative (NEGATIVE) 01/08/19 20:51 Salicylates < 1.0 mg/dL 1 01/05/19 13:53 Urine Opiates Screen Positive (NEGATIVE) H 01/05/19 15:30 Urine Methadone Screen Negative (NEGATIVE) 01/05/19 15:30 Acetaminophen < 10.0 ug/mL (10.0-30.0) L 01/05/19 13:55 Ur Barbiturates Screen Negative (NEGATIVE) 01/05/19 15:30 Ur Phencyclidine Scrn Negative (NEGATIVE) 01/05/19 15:30 Ur Amphetamines Screen Negative (NEGATIVE) 01/05/19 15:30 U Benzodiazepines Scrn Negative (NEGATIVE) 01/05/19 15:30 U Oth Cocaine Metabols Negative (NEGATIVE) 01/05/19 15:30 U Cannabinoids Screen Negative (NEGATIVE) 01/05/19 15:30 IgG 1209 mg/dL (694-1618) 01/05/19 13:53 IgA 344 mg/dL (81-463) 01/05/19 13:53 IgM 71 mg/dL (48-271) 01/05/19 13:53 Serum Immunofixation Not detected (Not Detected) 01/05/19 13:53 THIAGO Screen Positive (Negative) H 01/05/19 13:53 THIAGO Titer 1:40 Titer (<1:40) H 01/05/19 13:53 THIAGO Pattern Nucleolar H 01/05/19 13:53 Anti-Mitochondrial Ab Negative (Negative) 01/05/19 13:53 Smooth Muscle Ab Titer TEST NOT PERFORMED 01/05/19 13:53 Anti-Smooth Muscle Ab Negative (Negative) 01/05/19 13:53 Heparin-induced Plt Ab Negative (Negative) 01/07/19 06:40 HIPA Patient OD 0.211 01/07/19 06:40 C.trachomatis RNA (TMA) Not detected (Not Detected) 01/02/19 08:07 Hepatitis A IgM Ab Negative (NEGATIVE) 01/03/19 08:15 Hepatitis A Ab Total Antibody pos (NEGATIVE) 01/05/19 13:53 Hep Bs Antigen Negative (NEGATIVE) 01/03/19 08:15 Hep Bs Antibody Negative (NEGATIVE) 01/05/19 13:53 Hep B Core IgM Ab Negative (NEGATIVE) 01/03/19 08:15 Hepatitis C Antibody Negative (NEGATIVE) 01/03/19 08:15 HIV 1&2 Antibody Screen Negative (NEGATIVE) 01/04/19 06:56 Influenza Typ A,B (EIA) Negative for flu a/b (NEGATIVE) 01/05/19 19:52 Blood Parasites Smear Negative (NEGATIVE) 01/08/19 06:17 N.gonorrhoeae RNA (TMA) Not detected (Not Detected) 01/02/19 08:07 - Hospital Course Hospital Course: PGY1 Discharge Summary and Hospital Course for Dr. Leon On Admission: 58 year old female with past medical history of DM, HTN, and cholecystectomy presented to hospital for RUQ abdominal pain. Patient states that since her cholecystectomy 20 years ago, RUQ pain has been intermittently present. However since last week RUQ has been constant and worse in intensity. Pain is sharp in nature and radiates to her back. Pain is not associated with nausea/vomiting/fevers/chills/SOB. [place] [facility] for similar symptoms. At that time, pt states CT scan and blood work were unremarkable and she was treated for UTI. She was d/herb with 5 days of PO ABx. Patient completed course of Abx and her urinary symptoms improved. However, RUQ pain was not relieved. Patient subsequently admitted for intractable abdominal pain. Please see Patient's chart for complete summary and for details. Hospital Course: Patient was found to have acute transaminitis. GI was consulted on case; see report. No EGD warranted at this time. 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 However, Patient was febrile. Patient was started on antibiotics and hepatitis panel was obtained and was negative. Transaminitis resolved throughout hospitalization. Please see Patient's chart for complete summary and for details. Patient was found to be pancytopenic on serial CBCs. HIT antibody was obtained and was negative. All possible offending agents were discontinued including zosyn, protonix, and lovenox. Peripheral smear was obtained and revealed tear drop cells, helmet cells, neutropenia with L shift and rare blasts. Heme- Oncology was consulted; recommended repeat CBC as out-patient (see note) and bone marrow biopsy if pancytopenia does not resolve for possible MDS. Patient's THIAGO antibodies were positive. SLE panel was obtained and pending results. Patient to follow-up on results with PMD, Dr. Seth. Please see Patient's chart for complete summary and for details. Discharge: On day of discharge, Patient was hemodynamically stable and clinically optimized for discharge to home. Patient had no acute events overnight. No new complaints. Patient's abdominal pain improved dramatically. Patient was discharged with her home meds reconciled. A script for Cipro 500mg po BID #20 was given to patient. Patient provided detailed discharge instructions both verbally and in writing to the level of Patient's comprehension. Patient both understands and agrees to instructions. Please see Patient's chart for complete summary and for details. Discharge Instructions (provided to Patient) Please follow-up with Dr. Leon's office in 3-5 days of being discharged from the hospital Please take your home medications as prescribed Please complete the following antibiotics: Cipro 500mg take 1 tab by mouth twice daily for 10 days If your symptoms return, go to your nearest emergency department immediately Por favor, justus un seguimiento con el consultorio del Dr. Leon en 3-5 matson despus de ser dado de mari del hospital. Por favor, tome mireille medicamentos caseros segn lo prescrito Por favor complete los siguientes antibiticos: Cipro 500 mg shen 1 ficha por va oral dos veces al da viridiana 10 matson Si mireille sntomas regresan, vaya a [facility] departamento de emergencia ms banda Discussed with Dr. Edward Field PGY1 Discharge Exam - Additional Findings Additional findings: - Constitutional Appears: Non-toxic, No Acute Distress, Chronically Ill - Head Exam Head Exam: ATRAUMATIC, NORMAL INSPECTION, NORMOCEPHALIC - Eye Exam Eye Exam: EOMI, Normal appearance, PERRL. absent: Scleral icterus Pupil Exam: NORMAL ACCOMODATION - ENT Exam ENT Exam: Mucous Membranes Moist, Normal Exam Additional comments: no petechiae observed in oral mucosa, gums, and/or tongue - Neck Exam Neck Exam: Full ROM, Normal Inspection - Respiratory Exam Respiratory Exam: Clear to Ausculation Bilateral, NORMAL BREATHING PATTERN - Cardiovascular Exam Cardiovascular Exam: REGULAR RHYTHM, +S1, +S2 - GI/Abdominal Exam GI & Abdominal Exam: Soft, Normal Bowel Sounds - Extremities Exam Extremities Exam: Full ROM, Normal Capillary Refill, Normal Inspection Additional comments: no rash, no petechiae - Back Exam Back Exam: NORMAL INSPECTION. absent: rash noted - Neurological Exam Neurological Exam: Alert, Awake, CN II-XII Intact, Oriented x3 - Psychiatric Exam Psychiatric exam: Normal Affect, Normal Mood - Skin Skin Exam: Dry, Intact, Normal Color, Warm. absent: Petechiae, Rash Discharge Plan - Discharge Medications Prescriptions: Ciprofloxacin [Cipro] 500 mg PO BID #20 tab - Follow Up Plan Disposition: HOME/ ROUTINE Instructions: Ciprofloxacin (Systemic), Acute Abdomen (Belly Pain), Adult (DC) Additional Instructions: Please follow-up with Dr. Leon's office in 3-5 days of being discharged from the hospital Please take your home medications as prescribed Please complete the following antibiotics: Cipro 500mg take 1 tab by mouth twice daily for 10 days If your symptoms return, go to your nearest emergency department immediately Por favor, justus un seguimiento con el consultorio del Dr. Leon en 3-5 matson despus de ser dado de mari del hospital. Por favor, tome mireille medicamentos caseros segn lo prescrito Por favor complete los siguientes antibiticos: Cipro 500 mg shen 1 ficha por va oral dos veces al da viridiana 10 matson Si mireille sntomas regresan, vaya a [facility] departamento de emergencia ms cercano Referrals: Tariq Leon Jr., MD [Medical Doctor] -
--- NOTE | 2019-01-11 22:49 | CP.PCM.PN ---
Subjective - Date & Time of Evaluation Date of Evaluation: 01/09/19 Time of Evaluation: 12:00 - Subjective Subjective: No complaints. Objective - Vital Signs/Intake and Output Vital Signs (last 24 hours): Temp Pulse Resp BP Pulse Ox 98.3 F 99 H 20 113/77 95 01/10/19 08:22 01/10/19 08:22 01/10/19 08:22 01/10/19 08:22 01/10/19 08:22 - Labs Labs: 01/10/19 11:41 01/10/19 11:41 PT 13.5 SECONDS (9.7-12.2) H 01/07/19 08:40 INR 1.2 01/07/19 08:40 APTT 38.0 SECONDS (21-34) H 01/07/19 08:40 - Head Exam Head Exam: ATRAUMATIC - Eye Exam Eye Exam: Normal appearance - ENT Exam ENT Exam: Mucous Membranes Dry - Respiratory Exam Respiratory Exam: NORMAL BREATHING PATTERN - Cardiovascular Exam Cardiovascular Exam: +S1, +S2 - GI/Abdominal Exam GI & Abdominal Exam: Normal Bowel Sounds Assessment and Plan (1) Pancytopenia Assessment & Plan: low b12 noted; on supplementation will need outpatient bone marrow if counts dont improve Status: Acute
--- NOTE | 2019-01-11 22:50 | CP.PCM.PN ---
Subjective - Date & Time of Evaluation Date of Evaluation: 01/10/19 Time of Evaluation: 11:00 - Subjective Subjective: No complaints. Objective - Vital Signs/Intake and Output Vital Signs (last 24 hours): Temp Pulse Resp BP Pulse Ox 98.3 F 99 H 20 113/77 95 01/10/19 08:22 01/10/19 08:22 01/10/19 08:22 01/10/19 08:22 01/10/19 08:22 - Labs Labs: 01/10/19 11:41 01/10/19 11:41 PT 13.5 SECONDS (9.7-12.2) H 01/07/19 08:40 INR 1.2 01/07/19 08:40 APTT 38.0 SECONDS (21-34) H 01/07/19 08:40 - Head Exam Head Exam: ATRAUMATIC - Eye Exam Eye Exam: Normal appearance - ENT Exam ENT Exam: Mucous Membranes Dry - Respiratory Exam Respiratory Exam: NORMAL BREATHING PATTERN - Cardiovascular Exam Cardiovascular Exam: +S1, +S2 - GI/Abdominal Exam GI & Abdominal Exam: Normal Bowel Sounds Assessment and Plan (1) Pancytopenia Assessment & Plan: low b12 noted; on supplementation will need outpatient bone marrow if counts dont improve Status: Acute
== END 2019-01-10 14:25 | disposition home or self-care (01) | DRG 813 ==
LOC: C.ER 07:11 → C.9E 16:04 → C.3T 17:21 → C.ER 01-06 07:11 → OBSVTOIN 01-06 15:18 → C.9E 01-06 16:04 → C.3T 01-06 17:21
PROVIDERS: ADMIT Internal Medicine; ATTEND Internal Medicine
DX: R10.11 Right upper quadrant pain (principal); D61.818 Other pancytopenia; N39.0 Urinary tract infection, site not specified; E11.65 Type 2 diabetes mellitus with hyperglycemia; I10 Essential (primary) hypertension; K59.00 Constipation, unspecified; K57.90 Diverticulosis of intestine, part unspecified, without perforation or abscess without bleeding

== ENCOUNTER 2019-01-12 06:09 | Observation (INO) | payer MEDICAID ==
[2019-01-12 06:10] VITALS: BMI 23.7
[2019-01-12] MEDS ORDERED: Sodium Chloride 0.9% 1,000 ML IV ONE (07:27)
[2019-01-12] MEDS ORDERED: Sodium Chloride 0.9% 1,000 ML ONE ×2 (07:32→09:32)
[2019-01-12 07:45] LABS: BASO # 0.1 K/uL (0.0-0.2); BASO % 1.2 % (0.0-2.0); EOS % 0.5 % (0.0-4.0); HEMOGLOBIN 11.3 g/dL (11.0-16.0); LYMPH # 2.3 K/uL (1.0-4.3); LYMPH % 50.1 % (20.0-40.0); MEAN CELL VOLUME 83.3 fL (81.0-99.0); MEAN CORPUSCULAR HEMOGLOBIN 27.4 pg (27.0-31.0); MEAN CORPUSCULAR HGB CONC 32.9 g/dL (33.0-37.0); MEAN PLATELET VOLUME 9.4 fL (7.2-11.7); MONO # 0.2 K/uL (0.0-0.8); MONO % 3.3 % (0.0-10.0); NEUT # 2.1 K/uL (1.8-7.0); NEUT % 44.9 % (50.0-75.0); NRBC % 0.5 % (0.0-2.0); PLATELET COUNT 50 K/uL (130-400); RBC 4.13 Mil/uL (3.80-5.20); RED CELL DISTRIBUTION WIDTH 15.5 % (11.5-14.5); WHITE BLOOD COUNT 4.6 K/uL (4.8-10.8)
--- NOTE | 2019-01-12 08:08 | C.PDOC ---
History Of Present Illness 58 y/o female with dm and thrombocytopenia, uti, just discharged on 01/10/19 after a week stay for intractable abdominal pain, presents to ed with right lower back pain that radiates to right lower quadrantof abdomen and down leg. pt denies fever or chills. pt did not start taking po antibiotics yet, unable to fill rx. pt vomiting/retching here in ed. denies dysuriua, vaginal bleeding. c/o colicky type pain. Time Seen by Provider: 01/12/19 07:12 Chief Complaint (Nursing): Back Pain History Per: Patient, Family History/Exam Limitations: no limitations Onset/Duration Of Symptoms: Days (1) Current Symptoms Are (Timing): Still Present Quality Of Discomfort: Cramping, "Pain" Severity: Moderate Previous Symptoms: Chronic Pain Associated Symptoms: Other (tingling down leg). denies: New Weakness, New Numbness Exacerbating Factor(s): Movement Past Medical History Reviewed: Historical Data, Nursing Documentation, Vital Signs Vital Signs: Last Vital Signs Temp 97.3 F L 01/12/19 06:17 Pulse 103 H 01/12/19 06:17 Resp 18 01/12/19 06:17 BP 100/68 01/12/19 06:17 Pulse Ox 99 01/12/19 06:17 - Medical History PMH: Diabetes, HTN Denies: Chronic Kidney Disease Other PMH: thrombocytopenia, abnl lft Surgical History: Cholecystectomy - [facility] RADICAL EXCIS SKIN LES (05/11/14) Family History: States: Unknown Family Hx - Social History Hx Alcohol Use: No Hx Substance Use: No - Immunization History Hx Tetanus Toxoid Vaccination: No Hx Influenza Vaccination: Yes Hx Pneumococcal Vaccination: No Review Of Systems Constitutional: Negative for: Fever, Chills ENT: Negative for: Ear Pain, Throat Pain Cardiovascular: Negative for: Chest Pain Respiratory: Negative for: Cough, Shortness of Breath Gastrointestinal: Positive for: Nausea, Vomiting, Abdominal Pain. Negative for: Diarrhea Genitourinary: Negative for: Dysuria, Frequency, Vaginal Bleeding Musculoskeletal: Positive for: Back Pain Skin: Positive for: Bruising (from recent iv and blood draws). Negative for: Rash Neurological: Negative for: Weakness, Numbness Physical Exam - Physical Exam Appears: Non-toxic, In Acute Distress (retching), Chronically Ill Skin: Warm, Dry, Ecchymosis (from recent ivs) Head: Atraumatic, Normacephalic Oral Mucosa: Dry Neck: Supple Respiratory: No Decreased Breath Sounds, No Wheezing Gastrointestinal/Abdominal: Bowel Sounds, Soft, Tenderness (rlq/pelvic area), No Distention, No Guarding, No Rebound Back: CVA Tenderness, No Vertebral Tenderness, Other (right sciatic notch tenderness) Extremity: Normal ROM, Tenderness (lateral right thigh) Extremity: Bilateral: Atraumatic Neurological/Psych: Oriented x3, Normal Speech, Normal Cognition, Normal Motor, Normal Sensation ED Course And Treatment - Laboratory Results Result Diagrams: 01/12/19 07:37 01/12/19 07:37 O2 Sat by Pulse Oximetry: 99 Medical Decision Making Medical Decision Making: pt with lower back and abdominal pain; given low plts, morphine given rather than toradol. 0953 pt with recent hospitalization. discharged 2 days ago with new right sided lower back and abdominal pain with vomiting; pt hyperglycemic. not eating. vomiting. discussed with Dr Leon, will admit to his service; resident notified, will come see pt to determine what imaging study they want. Disposition Discussed With : Tariq Leon Jr. Doctor Will See Patient In The: Hospital - Disposition Disposition: HOSPITALIZED Disposition Time: 09:55 Condition: STABLE Forms: [employer] ([employer]) - Clinical Impression Clinical Impression: Intractable abdominal pain, Thrombocytopenia, Hyperglycemia
[2019-01-12 08:38] LABS: INR 1.2; PROTHROMBIN TIME 12.6 SECONDS (9.7-12.2)
[2019-01-12 08:54] LABS: SQUAMOUS EPITHIAL 4 /hpf (0-5); URINE BILIRUBIN NEGATIVE (NEGATIVE); URINE BLOOD NEGATIVE (NEGATIVE); URINE CLARITY Hazy (Clear); URINE COLOR Yellow (YELLOW); URINE GLUCOSE (UA) 3+ mg/dL (Normal); URINE LEUKOCYTE ESTERASE NEG Leu/uL (Negative); URINE PROTEIN NEGATIVE (NEGATIVE); URINE UROBILINOGEN NORMAL mg/dL (0.2-1.0)
[2019-01-12 09:06] LABS: ALB/GLOB RATIO 1.2 (1.0-2.1); ALT/SGPT 70 U/L (9-52); AST/SGOT 45 U/L (14-36); BLOOD UREA NITROGEN 19 mg/dL (7-17); CALCIUM 9.9 mg/dl (8.6-10.4); GFR NON-AFRICAN AMERICAN > 60; LIPASE 82 U/L (23-300)
[2019-01-12] MEDS ORDERED: (Novolin R) Insulin Human Regular 100 units/ml vial SC ONE (09:19)
[2019-01-12] MEDS ORDERED: (Novolin R) Insulin Human Regular 100 units/ml vial ONE (09:25)
[2019-01-12] MEDS ORDERED: Sodium Chloride 0.9% 1,000 ML IV SCH ×2 (09:30→16:32)
[2019-01-12] MEDS ORDERED: Glucagon Recombinant 1 mg Inj IM PRN (10:09)
[2019-01-12] MEDS ORDERED: Dextrose 50% SYRINGE Inj (50 ml) IV PRN (10:09)
--- NOTE | 2019-01-12 10:09 | CP.PCM.HP ---
History of Present Illness - History of Present Illness History of Present Illness: PGY-1 Vandana Arguello D.O. H&P for Dr. Leon's service: Patient is a 58 yo female with T2DM and HTN who presented with back pain. Aren tidwell was recently hospitalized for over a week and discharged 2 days ago for abdominal pain. During that hospitalization, she was found to have UTI, transaminitis, and pancytopenia. Patient was discharged with a prescription for Cipro; however, the patient states she has not yet filled the prescription. She reports that her back pain started yesterday. It came on gradually and is located in her lower right back. Pain radiates down her right leg. She also endorses some right leg numbness and tingling. She rates the pain 10/10. She says that it is painful to walk. She denies abdominal pain. She denies previous symptoms of neuropathy. She says lying own relieves the pain. She did not take any medication. Of note, patient vomited x1 in the ED. This was after receiving morphine and resolved with Zofran. PMH: T2DM, HTN, transaminitis, pancytopenia, B12 deficiency PSH: Cholecystectomy 20 years ago, Colonoscopy in 2017 with "pre-cancerous polyps" removed (repeat rec in 2019), EGD in 2017 Meds: lisinopril 10 mg/HCTZ 12.5 mg PO daily, B12 injections All: NKA FH: denies SH: denies alcohol, tobacco, and illicit drug use PMD: Edward Present on Admission - Present on Admission Any Indicators Present on Admission: No History of DVT/PE: No History of Uncontrolled Diabetes: No Urinary Catheter: No Decubitus Ulcer Present: No History Surgical Site Infection Following: None Review of Systems - Constitutional Constitutional: Weakness. absent: Chills, Fever - EENT Eyes: absent: Change in Vision Ears: absent: Decreased Hearing Nose/Mouth/Throat: absent: Nasal Congestion, Sore Throat - Cardiovascular Cardiovascular: absent: Chest Pain, Palpitations - Respiratory Respiratory: absent: Cough, Dyspnea - Gastrointestinal Gastrointestinal: absent: Abdominal Pain, Nausea - Genitourinary Genitourinary: absent: Dysuria, Hematuria - Musculoskeletal Musculoskeletal: As Per HPI, Numbness, Radiating Pain into Limb, Tingling - Integumentary Integumentary: absent: Lesions, Rash - Neurological Neurological: absent: Dizziness, Focal Weakness - Psychiatric Psychiatric: absent: Anxiety, Depression - Endocrine Endocrine: absent: Fatigue, Palpitations, Polydipsia, Polyuria - Hematologic/Lymphatic Hematologic: absent: Easy Bleeding, Easy Bruising, Lymphadenopathy Past Patient History - Infectious Disease Hx of Infectious Diseases: None - Tetanus Immunizations Tetanus Immunization: Unknown - Past Medical History & Family History Past Medical History?: Yes Past Family History: Reviewed and not pertinent - Past Social History Smoking Status: Never Smoked Chewing Tobacco Use: No Cigar Use: No Alcohol: None Home Situation {Lives}: With Family - CARDIAC Hx Hypertension: Yes - PULMONARY Hx Respiratory Disorders: No - NEUROLOGICAL Hx Neurological Disorder: No - HEENT Hx HEENT Problems: No - RENAL Hx Chronic Kidney Disease: No - ENDOCRINE/METABOLIC Hx Endocrine Disorders: Yes Hx Diabetes Mellitus Type 2: Yes - HEMATOLOGICAL/ONCOLOGICAL Hx Blood Disorders: No - INTEGUMENTARY Hx Dermatological Problems: Yes (mass on back) - MUSCULOSKELETAL/RHEUMATOLOGICAL Hx Musculoskeletal Disorders: No - GASTROINTESTINAL Hx Gastrointestinal Disorders: No - GENITOURINARY/GYNECOLOGICAL Hx Genitourinary Disorders: No - PSYCHIATRIC Hx Substance Use: No - SURGICAL HISTORY Hx Cholecystectomy: Yes - ANESTHESIA Hx Anesthesia: Yes Hx Anesthesia Reactions: No Hx Malignant Hyperthermia: No Meds Allergies/Adverse Reactions: Allergies Allergy/AdvReac Type Severity Reaction Status Date / Time No Known Allergies Allergy Verified 01/12/19 06:21 Physical Exam - Constitutional Appears: Non-toxic, No Acute Distress - Head Exam Head Exam: ATRAUMATIC, NORMAL INSPECTION - Eye Exam Eye Exam: EOMI, Normal appearance, PERRL - ENT Exam ENT Exam: Mucous Membranes Dry - Neck Exam Neck exam: Positive for: Normal Inspection. Negative for: Lymphadenopathy - Respiratory Exam Respiratory Exam: Clear to Auscultation Bilateral, NORMAL BREATHING PATTERN. absent: Respiratory Distress - Cardiovascular Exam Cardiovascular Exam: RRR, +S1, +S2 - GI/Abdominal Exam GI & Abdominal Exam: Normal Bowel Sounds, Soft. absent: Distended, Tenderness - Extremities Exam Extremities exam: Positive for: normal inspection, pedal pulses present Additional comments: RLU weakness 2/2 pain - Back Exam Back exam: NORMAL INSPECTION. absent: CVA tenderness (L), CVA tenderness (R), p araspinal tenderness, vertebral tenderness - Neurological Exam Neurological exam: Alert, CN II-XII Intact, Oriented x3 - Psychiatric Exam Psychiatric exam: Normal Affect, Normal Mood - Skin Skin Exam: Dry, Normal Color, Warm Results - Vital Signs Recent Vital Signs: Last Vital Signs Temp 97.3 F L 01/12/19 06:17 Pulse 78 01/12/19 09:37 Resp 18 01/12/19 09:37 BP 116/67 01/12/19 09:37 Pulse Ox 99 01/12/19 09:55 - Labs Result Diagrams: 01/12/19 07:37 01/12/19 07:37 Labs: Laboratory Results - last 24 hr 01/12/19 01/12/19 01/12/19 07:37 07:37 08:22 WBC 4.6 L RBC 4.13 Hgb 11.3 Hct 34.4 MCV 83.3 MCH 27.4 MCHC 32.9 L RDW 15.5 H Plt Count 50 L MPV 9.4 Neut % (Auto) 44.9 L Lymph % (Auto) 50.1 H [place] % (Auto) 3.3 Eos % (Auto) 0.5 Baso % (Auto) 1.2 Neut # (Auto) 2.1 Lymph # (Auto) 2.3 [place] # (Auto) 0.2 Eos # (Auto) 0.0 Baso # (Auto) 0.1 PT 12.6 H INR 1.2 APTT 30.0 Sodium 132 Potassium 5.2 Chloride 92 L Carbon Dioxide 26 Anion Gap 19 BUN 19 H Creatinine 0.6 L Est GFR ( Amer) > 60 Est GFR (Non-Af Amer) > 60 Random Glucose 368 H D Calcium 9.9 Total Bilirubin 0.4 AST 45 H ALT 70 H Alkaline Phosphatase 210 H Total Protein 7.4 Albumin 4.0 Globulin 3.4 Albumin/Globulin Ratio 1.2 Lipase 82 Urine Color Urine Clarity Urine pH Ur Specific [place] Urine Protein Urine Glucose (UA) Urine Ketones Urine Blood Urine Nitrate Urine Bilirubin Urine Urobilinogen Ur Leukocyte Esterase Urine WBC (Auto) Urine RBC (Auto) Ur Squamous Epith Cells 01/12/19 08:22 WBC RBC Hgb Hct MCV MCH MCHC RDW Plt Count MPV Neut % (Auto) Lymph % (Auto) [place] % (Auto) Eos % (Auto) Baso % (Auto) Neut # (Auto) Lymph # (Auto) [place] # (Auto) Eos # (Auto) Baso # (Auto) PT INR APTT Sodium Potassium Chloride Carbon Dioxide Anion Gap BUN Creatinine Est GFR ( Amer) Est GFR (Non-Af Amer) Random Glucose Calcium Total Bilirubin AST ALT Alkaline Phosphatase Total Protein Albumin Globulin Albumin/Globulin Ratio Lipase Urine Color Yellow Urine Clarity Hazy Urine pH 5.0 Ur Specific [place] 1.025 Urine Protein Negative Urine Glucose (UA) 3+ H Urine Ketones 1+ H Urine Blood Negative Urine Nitrate Negative Urine Bilirubin Negative Urine Urobilinogen Normal Ur Leukocyte Esterase Neg Urine WBC (Auto) 1 Urine RBC (Auto) 1 Ur Squamous Epith Cells 4 Assessment & Plan - Assessment and Plan (Free Text) Assessment: Patient is a 58 yo female with T2DM and HTN who presented with back pain. Symptoms are consistent with sciatica. Plan: Right-sided sciatica, acute - Lumbar XR: no abnormalities - Consider CT or MRI - Dilaudid 0.5 mg IVP Q6H PRN - Oxycodone 5 mg PO Q6H PRN - Zofran 4 mg IVP Q6H PRN Dehydration, acute - NS @ 100 cc/hr Hypertension, chronic - Vitals Q6H - Lisinopril 10 mg PO daily - HCTZ 12.5 mg PO daily Type 2 diabetes mellitus, chronic - A1c 9.8 - Accuchecks ACHS - Hypoglycemia protocol - ISS med Pancytopenia, stable - Work-up last admission - Monitor CBC - F/u outpatient with heme/onc Transaminitis, improving - Work-up last admission - F/u outpatient with GI Ppx: VTE: SCDs, chemical anticoag contraindicated due to thrombocytopenia GI: not indicated Diet: Heart healthy Code status: full code Dispo: Pain control. Likely discharge home tomorrow. Case discussed with attending, Dr. Leon.
[2019-01-12] MEDS ORDERED: (Novolin R) Insulin Human Regular 100 units/ml vial SC SCH (10:15)
[2019-01-12] MEDS: Sodium Chloride 0.9% 1,000 ML IV SCH ×2 (10:55→12:20)
--- NOTE | 2019-01-12 11:48 | RAD ---
Date of service: 01/12/2019 PROCEDURE: Radiographs of the Lumbar Spine. HISTORY: back pain COMPARISON: No prior. TECHNIQUE: 5 views obtained. FINDINGS: BONES: Normal alignment. No listhesis. No fracture. DISC SPACES: Unremarkable. OTHER FINDINGS: None. IMPRESSION: Unremarkable radiographs of the lumbar spine.
[2019-01-12] MEDS: (Novolin R) Insulin Human Regular 100 units/ml vial SC SCH ×3 (12:20→21:33)
[2019-01-12] MEDS: HYDROmorphone 0.5 mg/0.5 ml ISec IVP PRN ×2 (14:32→20:34)
[2019-01-12] MEDS ORDERED: oxyCODONE 5 mg Immediate Release Tab PO PRN (15:00)
[2019-01-12 15:46] LABS: BANDS 4 % (0-2); EOSINOPHIL 2 % (0-4); MONOCYTE 2 % (0-10); PLATELET ESTIMATE MARKEDLY DECREASED (NORMAL); REACTIVE LYMPHOCYTES 12 % (0-0); TOTAL CELLS COUNTED 100
[2019-01-12 15:47] LABS: LYMPHOCYTE 40 % (20-40); NEUTROPHIL 40 % (50-75)
[2019-01-12 15:49] LABS: ANISOCYTOSIS SLIGHT; POIKILOCYTOSIS SLIGHT
[2019-01-12 15:50] LABS: BURR CELLS SLIGHT; OVALOCYTES SLIGHT
[2019-01-12 17:44] VITALS: RESP 20
[2019-01-13] MEDS: HYDROmorphone 0.5 mg/0.5 ml ISec IVP PRN ×3 (02:35→14:47)
[2019-01-13 07:35] LABS: BASO % 0.7 % (0.0-2.0); EOS % 0.3 % (0.0-4.0); HEMOGLOBIN 10.9 g/dL (11.0-16.0); LYMPH # 2.1 K/uL (1.0-4.3); LYMPH % 60.8 % (20.0-40.0); MEAN CELL VOLUME 83.5 fL (81.0-99.0); MEAN CORPUSCULAR HEMOGLOBIN 28.2 pg (27.0-31.0); MEAN CORPUSCULAR HGB CONC 33.8 g/dL (33.0-37.0); MEAN PLATELET VOLUME 9.6 fL (7.2-11.7); MONO # 0.1 K/uL (0.0-0.8); MONO % 2.3 % (0.0-10.0); NEUT # 1.2 K/uL (1.8-7.0); NEUT % 35.9 % (50.0-75.0); NRBC % 0.4 % (0.0-2.0); RBC 3.88 Mil/uL (3.80-5.20); RED CELL DISTRIBUTION WIDTH 15.6 % (11.5-14.5); WHITE BLOOD COUNT 3.4 K/uL (4.8-10.8)
[2019-01-13 07:46] VITALS: O2SAT 96
--- NOTE | 2019-01-13 08:04 | CP.PCM.PN ---
Subjective - Date & Time of Evaluation Date of Evaluation: 01/13/19 Time of Evaluation: 08:04 Objective - Vital Signs/Intake and Output Vital Signs (last 24 hours): Temp Pulse Resp BP Pulse Ox 98.4 F 90 20 140/85 96 01/13/19 07:00 01/13/19 07:00 01/13/19 07:00 01/13/19 07:00 01/13/19 07:00 - Medications Medications: Current Medications Ciprofloxacin (Cipro) 500 mg PO BID JOSHUA; Protocol Dextrose (Dextrose 50% Inj) 0 ml IV STAT PRN; Protocol PRN Reason: Hypoglycemia Protocol Dextrose (Glutose 15) 0 gm PO ONCE PRN; Protocol PRN Reason: Hypoglycemia Protocol Glucagon (Glucagen Diagnostic Kit) 0 mg IM STAT PRN; Protocol PRN Reason: Hypoglycemia Protocol Hydrochlorothiazide (Microzide) 12.5 mg PO DAILY [facility] Hydromorphone HCl (Dilaudid) 0.5 mg IVP Q6H PRN PRN Reason: Pain, severe (8-10) Last Admin: 01/13/19 02:35 Dose: 0.5 mg Dextrose (Dextrose 5% In Water 1000 Ml) 1,000 mls @ 0 mls/hr IV .Q0M PRN; Protocol PRN Reason: Hypoglycemia Protocol Sodium Chloride (Sodium Chloride 0.9%) 1,000 mls @ 100 mls/hr IV .Q10H JOSHUA Last Admin: 01/13/19 07:12 Dose: Not Given Insulin Human Regular (Novolin R) 0 unit SC ACHS JOSHUA; Protocol Lisinopril (Zestril) 10 mg PO DAILY [facility] Ondansetron HCl (Zofran Inj) 4 mg IVP Q6 PRN PRN Reason: Nausea/Vomiting Oxycodone HCl (Oxycodone Immediate Release Tab) 5 mg PO Q6 PRN PRN Reason: Pain, moderate (4-7) - Labs Labs: 01/13/19 07:21 01/12/19 07:37 PT 12.6 SECONDS (9.7-12.2) H 01/12/19 08:22 INR 1.2 01/12/19 08:22 APTT 30.0 SECONDS (21-34) 01/12/19 08:22
[2019-01-13 08:09] LABS: ALB/GLOB RATIO 1.2 (1.0-2.1); ALT/SGPT 238 U/L (9-52); AST/SGOT 168 U/L (14-36); BLOOD UREA NITROGEN 8 mg/dL (7-17); CALCIUM 9.2 mg/dl (8.6-10.4); GFR NON-AFRICAN AMERICAN > 60
[2019-01-13] MEDS: (Novolin R) Insulin Human Regular 100 units/ml vial SC SCH ×3 (08:17→12:19)
[2019-01-13] MEDS ORDERED: Dexamethasone 4 mg/1 ml IVP STA (09:39)
--- NOTE | 2019-01-13 12:13 | MRI ---
Date of service: 01/13/2019 PROCEDURE: MR LUMBAR SPINE WITHOUT CONTRAST HISTORY: Low back pain COMPARISON: Plain radiographs from 01/12/2019. TECHNIQUE: Multiecho multiplanar sequences were performed through the lumbar spine without the use of intravenous contrast. FINDINGS: There is normal alignment of the lumbar vertebral bodies. There is normal lumbar lordosis. There is no acute fracture or spondylolysis. There is multifocal patchy T1 isointense and T2/stir hyperintense signal in the lumbar vertebral bodies and also at T11 and T12, worse at T11. No evidence for pathologic fracture. The conus medullaris terminates at a normal level and the nerve roots of cauda equina are normal. There is multilevel disc degeneration with loss of T2 signal. The disc heights are maintained. T12-L1: No disc herniation, spinal canal stenosis or neural foraminal narrowing. L1-2: No disc herniation, spinal canal stenosis or neural foraminal narrowing. L2-3: Central disc protrusion without central spinal canal stenosis. No neural foraminal narrowing. L3-4: Mild posterior disc bulge without spinal canal stenosis or neural foraminal narrowing. L4-5: Diffuse posterior disc bulge without spinal canal stenosis or neural foraminal narrowing. Moderate bilateral facet arthropathy. L5-S1: Minimal posterior disc bulge without spinal canal stenosis or neural foraminal narrowing. Severe bilateral facet arthropathy. OTHER FINDINGS: The paraspinous soft tissues are normal. Imaged portion of the retroperitoneum is within normal limits. IMPRESSION: 1. Multifocal patchy abnormal bone marrow signal in the visualized thoracic and lumbar vertebral bodies without evidence for pathologic fracture. MRI of the spine with intravenous contrast is recommended for further characterization. 2. Mild multilevel degenerative disc disease, worse at L2-3 with a small central disc protrusion without spinal canal stenosis on neural foraminal narrowing. Moderate to severe facet arthropathy at L4-5 and L5-S1.
--- NOTE | 2019-01-13 13:40 | CP.PCM.DIS ---
Provider - Provider Date of Admission: 01/12/19 09:55 Attending physician: Tariq Leon Jr, MD Primary care physician: Dr. Leon Time Spent in preparation of Discharge (in minutes): 45 Diagnosis - Discharge Diagnosis (1) Lumbar back pain Status: Acute Priority: Medium Hospital Course - Lab Results Lab Results: Micro Results 01/12/19 08:22 Urine Random Urine Culture - Final Gram Positive Cocci Most Recent Lab Values WBC 3.4 K/uL (4.8-10.8) L 01/13/19 07:21 RBC 3.88 Mil/uL (3.80-5.20) 01/13/19 07:21 Hgb 10.9 g/dL (11.0-16.0) L 01/13/19 07:21 Hct 32.4 % (34.0-47.0) L 01/13/19 07:21 MCV 83.5 fL (81.0-99.0) 01/13/19 07:21 MCH 28.2 pg (27.0-31.0) 01/13/19 07:21 MCHC 33.8 g/dL (33.0-37.0) 01/13/19 07:21 RDW 15.6 % (11.5-14.5) H 01/13/19 07:21 Plt Count 40 K/uL (130-400) L 01/13/19 07:21 MPV 9.6 fL (7.2-11.7) 01/13/19 07:21 Neut % (Auto) 35.9 % (50.0-75.0) L 01/13/19 07:21 Lymph % (Auto) 60.8 % (20.0-40.0) H 01/13/19 07:21 [place] % (Auto) 2.3 % (0.0-10.0) 01/13/19 07:21 Eos % (Auto) 0.3 % (0.0-4.0) 01/13/19 07:21 Baso % (Auto) 0.7 % (0.0-2.0) 01/13/19 07:21 Neut # (Auto) 1.2 K/uL (1.8-7.0) L 01/13/19 07:21 Lymph # (Auto) 2.1 K/uL (1.0-4.3) 01/13/19 07:21 [place] # (Auto) 0.1 K/uL (0.0-0.8) 01/13/19 07:21 Eos # (Auto) 0.0 K/uL (0.0-0.7) 01/13/19 07:21 Baso # (Auto) 0.0 K/uL (0.0-0.2) 01/13/19 07:21 Neutrophils % (Manual) 40 % (50-75) L 01/12/19 07:37 Band Neutrophils % 4 % (0-2) H 01/12/19 07:37 Lymphocytes % (Manual) 40 % (20-40) 01/12/19 07:37 Reactive Lymphs % 12 % (0-0) H 01/12/19 07:37 Monocytes % (Manual) 2 % (0-10) 01/12/19 07:37 Eosinophils % (Manual) 2 % (0-4) 01/12/19 07:37 Platelet Estimate Markedly decreased (NORMAL) L 01/12/19 07:37 Poikilocytosis (manual Slight 01/12/19 07:37 Anisocytosis (manual) Slight 01/12/19 07:37 Ovalocytes Slight 01/12/19 07:37 Analy Cells Slight 01/12/19 07:37 PT 12.6 SECONDS (9.7-12.2) H 01/12/19 08:22 INR 1.2 01/12/19 08:22 APTT 30.0 SECONDS (21-34) 01/12/19 08:22 Sodium 132 mmol/L (132-148) 01/13/19 07:21 Potassium 4.6 mmol/L (3.6-5.2) 01/13/19 07:21 Chloride 92 mmol/L (98-107) L 01/13/19 07:21 Carbon Dioxide 29 mmol/L (22-30) 01/13/19 07:21 Anion Gap 16 (10-20) 01/13/19 07:21 BUN 8 mg/dL (7-17) 01/13/19 07:21 Creatinine 0.5 mg/dL (0.7-1.2) L 01/13/19 07:21 Est GFR ( Amer) > 60 01/13/19 07:21 Est GFR (Non-Af Amer) > 60 01/13/19 07:21 POC Glucose (mg/dL) 245 mg/dL (65-110) H 01/13/19 12:09 Random Glucose 317 mg/dL (65-105) H 01/13/19 07:21 Calcium 9.2 mg/dl (8.6-10.4) 01/13/19 07:21 Phosphorus 3.7 mg/dL (2.5-4.5) 01/13/19 07:21 Magnesium 1.8 mg/dL (1.6-2.3) 01/13/19 07:21 Total Bilirubin 0.6 mg/dL (0.2-1.3) 01/13/19 07:21 AST 168 U/L (14-36) H D 01/13/19 07:21 ALT 238 U/L (9-52) H D 01/13/19 07:21 Alkaline Phosphatase 449 U/L (38-126) H D 01/13/19 07:21 Total Protein 7.3 g/dL (6.3-8.3) 01/13/19 07:21 Albumin 4.0 g/dL (3.5-5.0) 01/13/19 07:21 Globulin 3.3 gm/dL (2.2-3.9) 01/13/19 07:21 Albumin/Globulin Ratio 1.2 (1.0-2.1) 01/13/19 07:21 Lipase 82 U/L (23-300) 01/12/19 07:37 Urine Color Yellow (YELLOW) 01/12/19 08:22 Urine Clarity Hazy (Clear) 01/12/19 08:22 Urine pH 5.0 (5.0-8.0) 01/12/19 08:22 Ur Specific [place] 1.025 (1.003-1.030) 01/12/19 08:22 Urine Protein Negative mg/dL (NEGATIVE) 01/12/19 08:22 Urine Glucose (UA) 3+ mg/dL (Normal) H 01/12/19 08:22 Urine Ketones 1+ mg/dL (NEGATIVE) H 01/12/19 08:22 Urine Blood Negative (NEGATIVE) 01/12/19 08:22 Urine Nitrate Negative (NEGATIVE) 01/12/19 08:22 Urine Bilirubin Negative (NEGATIVE) 01/12/19 08:22 Urine Urobilinogen Normal mg/dL (0.2-1.0) 01/12/19 08:22 Ur Leukocyte Esterase Neg [place]/uL (Negative) 01/12/19 08:22 Urine WBC (Auto) 1 /hpf (0-5) 01/12/19 08:22 Urine RBC (Auto) 1 /hpf (0-3) 01/12/19 08:22 Ur Squamous Epith Cells 4 /hpf (0-5) 01/12/19 08:22 - Hospital Course Hospital Course: PGY1 Discharge Summary and Hospital Course for Dr. Leon On Admission: Patient is a 58 yo female with T2DM and HTN who presented with back pain. Patient was recently hospitalized for over a week and discharged 2 days ago for abdominal pain. During that hospitalization, she was found to have UTI, transaminitis, and pancytopenia. Patient was discharged with a prescription for Cipro; however, the patient states she has not yet filled the prescription. She reports that her back pain started yesterday. It came on gradually and is located in her lower right back. Pain radiates down her right leg. She also endorses some right leg numbness and tingling. She rates the pain 10/10. She says that it is painful to walk. She denies abdominal pain. She denies previous symptoms of neuropathy. She says lying own relieves the pain. She did not take any medication. See chart for complete detail. During Hospitalization: Patient was treated with dilaudid for pain management, as morphine causes nausea/vomiting. Patient was administered decadron 4mg IVP once, and insulin sliding scale was placed. Patient underwent MRI of lumbar region without contrast which revealed multifocal patchy abnormal bone marrow signal in the visualized thoracic and lumbar vertebral bodies without evidence for pat hological fracture; Mild multilevel degenerative disc disease, worse at L2-3 with a small central disc protrusion without spinal canal stenosis on neural foraminal narrowing. Moderate to severe facet arthropathy at L4-5 and L5-S1 (see report for complete detail). On Discharge: Patient was hemodynamically stable and medically optimized for discharge to home. Patient was discharged with decadron 4mg PO BID PRN for severe pain #10. Patient received instructions provided both in writing and verbally to the level of the Patient's comprehension. Patient both understands and agrees to all instructions. Please see chart for details. Discussed with Dr. Edward Field PGY1 Discharge Exam - Additional Findings Additional findings: - Constitutional Appears: Non-toxic, No Acute Distress - Head Exam Head Exam: ATRAUMATIC, NORMAL INSPECTION - Eye Exam Eye Exam: EOMI, Normal appearance, PERRL - ENT Exam ENT Exam: Mucous Membranes Dry - Neck Exam Neck exam: Positive for: Normal Inspection. Negative for: Lymphadenopathy - Respiratory Exam Respiratory Exam: Clear to Auscultation Bilateral, NORMAL BREATHING PATTERN. absent: Respiratory Distress - Cardiovascular Exam Cardiovascular Exam: RRR, +S1, +S2 - GI/Abdominal Exam GI & Abdominal Exam: Normal Bowel Sounds, Soft. absent: Distended, Tenderness - Extremities Exam Extremities exam: Positive for: normal inspection, pedal pulses present - Back Exam Back exam: NORMAL INSPECTION. absent: CVA tenderness (L), CVA tenderness (R), paraspinal tenderness, vertebral tenderness - Neurological Exam Neurological exam: Alert, CN II-XII Intact, Oriented x3 - Psychiatric Exam Psychiatric exam: Normal Affect, Normal Mood - Skin Skin Exam: Dry, Normal Color, Warm Discharge Plan - Discharge Medications Prescriptions: Dexamethasone [Decadron] 4 mg PO BID PRN #14 tab PRN Reason: Pain, Severe (8-10) - Follow Up Plan Condition: STABLE Disposition: HOME/ ROUTINE Additional Instructions: Please follow-up with Dr. Leon's office within 3-5 days of being discharged from the hospital Continue your medications as prescribed You were prescribed 1 new medication: Decadron 4mg take 1 tab by mouth twice daily only as needed for severe pain If your symptoms return, or if you start experiencing symptoms of bowel / bladder incontinence, go to your nearest emergency department immediately Por favor siga con el La benita Thao dentro de los 3-5 matson de ser dado de mari del hospital Continuar mireille medicamentos segn lo prescrito Te recetaron 1 medicamento nuevo: Decadron 4 mg shen 1 ficha por va oral dos veces al da stanley dolor brenda Si mireille sntomas regresan, o si comienza a experimentar sntomas de incontinencia intestinal / vesical, dirjase al servicio de urgencias ms cerc[facility].
[2019-01-13 16:59] VITALS: BP 125/81; PULSE 113; TEMP 98.6
== END 2019-01-13 17:33 | disposition home or self-care (01) ==
LOC: C.ER 06:09 → C.9E 09:55 → C.3T 10:40
PROVIDERS: ADMIT Internal Medicine; ATTEND Internal Medicine
DX: M54.5 Low back pain (principal); I10 Essential (primary) hypertension; E11.65 Type 2 diabetes mellitus with hyperglycemia; D69.6 Thrombocytopenia, unspecified
CPT/HCPCS: 36415; 72100; 72148; 80053; 81001; 82948; 83690; 83735; 84100; 85025; 85610; 85730; 87086; 96360; 96372; 96374; 97162; 99285; G0378; G8978; G8979; J1100; J1170; J2060; J2270; J2405; J7030